=== PATIENT | male | born 1945 | race Caucasian/White ===

== ENCOUNTER 2017-07-29 23:51 | Inpatient (IN) | payer MEDICARE, BC ==
[~2017-07-29] VITALS: Ht 170.2 cm; Wt 88.0 kg
--- NOTE | 2017-07-30 00:07 | NUR ---
PT BIB [employer], PT PER [employer] WAS ON A HOLD AND GOT OUT OF PSYCH FACILITY EARLIER TODAY, [employer] SMART TEAM WROTE ANOTHER HOLD FOR PT. PT AO RR EVEN AND UNLABORED. NO SOB NOTED. NAD NOTED. NO NVD AT THIS TIME. PT PLACED ON MONITOR WAITING FOR MD SCOTT.
--- NOTE | 2017-07-30 00:08 | NUR ---
LAB AT [facility] FOR BLOOD DRAW
[2017-07-30 00:19] LABS: BASOPHILS % (AUTO) 0.5 % (0.0-2.0); EOSINOPHILS % (AUTO) 2.3 % (0.0-6.0); HEMATOCRIT 39 % (39-51); HEMOGLOBIN 13.2 g/dL (13.5-17.5); LYMPHOCYTES # (AUTO) 2.6 /CMM (0.8-4.8); LYMPHOCYTES % (AUTO) 29.5 % (20.0-44.0); MEAN CORPUSCULAR HGB CONC 34 g/dl (31.0-36.0); MEAN CORPUSCULAR VOLUME 87 fL (80-96); MONOCYTES # (AUTO) 0.9 /CMM (0.1-1.30); MONOCYTES % (AUTO) 9.7 % (2.0-12.0); NEUTROPHILS # (AUTO) 5.2 /CMM (1.8-8.9); PLATELET COUNT (AUTO) 261 /CMM (150-450); RDW COEFFICIENT OF VARIATION 14.4 (11.5-15.0); RED BLOOD CELL COUNT(AUTO) 4.52 MIL/uL (4.5-6.0)
--- NOTE | 2017-07-30 00:28 | NUR ---
URINE COLLECTED. CALLED LAB FOR LATHE MECHANIC.
[2017-07-30 00:34] LABS: CALCIUM, SERUM 9.5 mg/dL (8.5-10.1); CARBON DIOXIDE 22 mmol/L (21-32); CHLORIDE 103 mmol/L (98-107); CREATININE 1.4 mg/dL (0.6-1.3); GLUCOSE 253 mg/dL (74-106); POTASSIUM 3.3 mmol/L (3.5-5.1); SODIUM SERUM 139 mmol/L (136-145); UREA NITROGEN, BLOOD 22 mg/dL (7-18)
[2017-07-30 00:35] LABS: ALCOHOL, BLOOD < 3 mg/dL (0-0)
[2017-07-30] MEDS ORDERED: HYDROCODONE/APAP 5/325MG 1 EACH TABLET ONE (00:50)
[2017-07-30] MEDS ORDERED: ONDANSETRON 4 MG TAB.RAPDIS ONE (00:51)
[2017-07-30 00:59] LABS: APPEARANCE,URINE CLEAR (CLEAR); BILIRUBIN,URINE NEGATIVE (NEGATIVE); BLOOD, URINE 1+ Ery/uL (NEGATIVE); COLOR,URINE YELLOW (YELLOW); KETONES,URINE TRACE (NEGATIVE); LEUKOCYTE ESTERASE ,URINE NEGATIVE (NEGATIVE); NITRITE, URINE NEGATIVE (NEGATIVE); PROTEIN,URINE 2+ mg/dl (NEGATIVE); UGLUCOSE 2+ mg/dL (NEGATIVE); UROBILINOGEN,URINE 0.2 EU/dL (0.2)
[2017-07-30] MEDS ORDERED: ONDANSETRON 4 MG TAB.RAPDIS SL ONE (01:00)
[2017-07-30] MEDS ORDERED: HYDROCODONE/APAP 5/325MG 1 EACH TABLET PO ONE (01:00)
--- NOTE | 2017-07-30 01:00 | NUR ---
REPORT GIVEN TO MACEY SULLIVAN FOR REINIER / GUALBERTO 214-B
--- NOTE | 2017-07-30 01:07 | NUR ---
[facility]
[2017-07-30 01:14] LABS: BACTERIA,URINE None seen /HPF (None Seen); SQUAMOUS EPITHELIAL CELL,UR Few /HPF (None Seen); WBC,URINE 0-2 /HPF (0-3)
[2017-07-30 01:15] VITALS: BP 154/96
--- NOTE | 2017-07-30 01:20 | NUR ---
ADMITTED A 72 Y/O MALE FROM [facility] AND EVALUATED FROM [facility]. PATIENT ON 5150 HOLD FOR GD. PER HOLD, PATIENT IS UNABLE TO CARE FOR HIMSELF DUE TO NOT BEING ABLE TO PERFORM BASIC FUNCTIONS- BATHE, PREPARE FOOD & TAKE MEDICATIONS. NON-COMPLIANT W/ MEDS. PATIENT ADMITTING DX. OF DEPRESSION AND MEDICAL DIAGNOSIS OF HTN, DEMENTIA, UTI & CHRONIC BACK PAIN. UPON FACE TO FACE EVALUATION, PATIENT APPEARED ALERT AND ORIENTED X 1, CONFUSED, RESTLESS & ANXIOUS. SKIN BODY ASSESSMENT DONE. PICTURES TAKEN. MRSA DONE. PATIENT UNABLE TO SIGN PAPER WORKS. NO SOB, NO ACUTE DISTRESS, BREATHING EVEN AND UNLABORED, NO S/S OF PAIN AND DISCOMFORT. VSS. PATIENT IS UNDER THE CARE OF DR. PENA FOR PSYCH AND DR. GUERRERO FOR MEDICAL. BOTH DOCTORS ARE AWARE OF THE ADMISSION. BELONGINGS CHECKED FOR CONTRABAND ITEMS. PUT IT IN SAFE LOCK CABINET. KEPT CLEAN, DRY AND COMFORTABLE. ALL NEEDS ATTENDED & ANTICIPATED. WILL CONTINUE TO MONITOR Q15 MINS FOR SAFETY.
[2017-07-30] MEDS ORDERED: MAGNESIUM HYDROXIDE 30 ML UDC PO PRN (01:30)
[2017-07-30] MEDS ORDERED: MAG HYDROX/AL HYDROX/SIMETH 30 ML UDC PO PRN (01:30)
[2017-07-30] MEDS ORDERED: ACETAMINOPHEN 325 MG TABLET PO PRN (01:30)
[2017-07-30] MEDS: TEMAZEPAM 7.5 MG CAPSULE PO PRN ×2 (02:01→23:31)
[2017-07-30 02:32] VITALS: BP 154/96
--- NOTE | 2017-07-30 07:50 | NUR ---
GPS RN NOTES PATIENT RECEIVED RESTING INSIDE ROOM. SLEEPING, EASILY AROUSABLE THROUGH VERBAL AND TACTILE STIMULI. ALERT AND ORIENTED TO SELF WITH PERIODS OF CONFUSION. PATIENT RE-ORIENTED TO STAFF, TIME AND DATE, CURRENT PLACE AND SITUATION. PATIENT AFEBRILE, SKIN DRY AND WARM TO TOUCH. BREATHING EVEN AND UNLABORED. NO SOB OR ACUTE DISTRESS NOTED AT THIS TIME. DENIES ANY PAIN OR DISCOMFORT. WILL CONTINUE TO MONITOR. BILATERAL UPPER SIDE RAILS UP AND LOCKED. BED LOCKED AND IN LOW POSITION. CALL LIGHT WITHIN EASY REACH
[2017-07-30 08:00] VITALS: BP 127/74
[2017-07-30] MEDS ORDERED: POTASSIUM CHLORIDE 20 MEQ TAB.PRT.SR PO ONE (09:30)
[2017-07-30] MEDS ORDERED: POLY17PO4 PO (12:22)
[2017-07-30] MEDS ORDERED: DIVA125C2 PO (12:22)
[2017-07-30] MEDS ORDERED: SENN-167 PO (12:22)
[2017-07-30] MEDS ORDERED: AMLO5TAB7 PO (12:22)
[2017-07-30] MEDS ORDERED: ASCO-340 PO (12:22)
[2017-07-30] MEDS ORDERED: CARV6.252 PO (12:22)
[2017-07-30] MEDS ORDERED: INSU100V3 SQ (12:22)
[2017-07-30] MEDS ORDERED: NA P133E RC (12:22)
[2017-07-30] MEDS ORDERED: ATOR10TA PO (12:22)
[2017-07-30] MEDS ORDERED: TAMS0.4C34 PO (12:22)
[2017-07-30] MEDS ORDERED: BISA10SU8 RC (12:22)
[2017-07-30] MEDS ORDERED: INSU100I30 SQ (12:22)
[2017-07-30] MEDS ORDERED: OLAN7.5T3 PO (12:22)
[2017-07-30] MEDS ORDERED: DOCU100C36 PO (12:22)
[2017-07-30] MEDS ORDERED: CLON0.1T PO (12:22)
[2017-07-30] MEDS ORDERED: MULT-213 PO (12:22)
--- NOTE | 2017-07-30 12:30 | NUR ---
GPS/RN MED LIST RECEIVED FROM [facility] [phone], ENTERED IN [employer]. LIA SANDOVAL MADE AWARE OF MEDS TO BE RECONCILED. PT WAS SEEN BY DR JEAN EARLY.
[2017-07-30] MEDS: HYDROCODONE/APAP 5/325MG 1 EACH TABLET PO PRN (13:46)
[2017-07-30] MEDS: DIVALPROEX SODIUM 250 MG TABLET.DR PO SCH ×2 (14:38→16:25)
--- NOTE | 2017-07-30 15:11 | NUR ---
GPS RN NOTES PLACED CALL TO [employer] TO FOLLOW-UP WITH TIMO FITZGERALD NP REGARDING MEDICATION RECONCILATION AND PATIENT GLUCOSE PER BMP AND HGA1C. SPOKE WITH LUKE, VEHICLE DETAILER # [phone] AND SAID LIA WILL BE PAGED. WILL CONTINUE TO MONITOR
--- NOTE | 2017-07-30 16:30 | NUR ---
GPS/RN GPS/RN TIMO FITZGERALD ROASTER OPERATOR SEEN THE PATIENT
[2017-07-30 16:37] VITALS: BP 143/80
--- NOTE | 2017-07-30 18:40 | NUR ---
GPS RN NOTES PATIENT RESTING INSIDE ROOM, SLEEPING INTERMITENTLY. ALERT AND ORIENTED WITH PERIODS OF FORGETFULNESS. ABLE TO MAKE NEEDS KNOWN AND FOLLOW SIMPLE INSTRUCTIONS. PATIENT BREATHING EVEN AND UNLABORED. NO SOB OR ACUTE DISTRESS NOTED. PATIENT AFEBRILE, SKIN DRY AND WARM TO TOUCH. NO EPISODE OF AGITATION OR AGGRESSIVE BEHAVIOR NOTED. NO CHANGES IN LOC NOTED. WILL ENDORSE TO INCOMING SHIFT FOR REINIER. ALL DUE MEDICATIONS GIVEN AND TOLERATED WELL. PROVIDED WITH CALM, SAFE, HAZARD-FREE ENVIRONMENT. BED LOCKED AND IN LOW POSITION. BILATERAL UPPER SIDE RAILS UP AND LOCKED. CALL LIGHT WITHIN EASY REACH
[2017-07-30] MEDS ORDERED: NA PHOS,M-B/NA PHOS,DI-BA 1 EA ENEMA RC PRN (19:00)
[2017-07-30] MEDS ORDERED: CLONIDINE HCL 0.1 MG TABLET PO PRN (19:00)
[2017-07-30] MEDS ORDERED: BISACODYL SUPP (10 MG) 10 MG/SUPP.RECT SUPP.RECT RC PRN (19:00)
[2017-07-30] MEDS ORDERED: POLYETHYLENE GLYCOL 3350 17 GM POWD.PACK PO PRN (19:00)
[2017-07-30] MEDS ORDERED: DEXTROSE 50%-WATER 50 ML DISP.SYRIN IV PRN (19:00)
[2017-07-30] MEDS: LIDOCAINE 5% (PATCH) 1 EA PATCH TP SCH (19:00)
[2017-07-30 20:19] VITALS: BP 145/84
[2017-07-30] MEDS: SENNOSIDES 8.6 MG TABLET PO SCH (21:28)
[2017-07-30] MEDS: DOCUSATE SODIUM 100 MG CAPSULE PO SCH (21:29)
[2017-07-30] MEDS: TAMSULOSIN 0.4 MG CAP.SR.24H PO SCH (21:29)
[2017-07-30] MEDS: AMLODIPINE BESYLATE 5 MG TABLET PO SCH (21:30)
[2017-07-30] MEDS: ATORVASTATIN 10 MG TABLET PO SCH (21:31)
[2017-07-30] MEDS: BLOOD SUGAR DIAGNOSTIC 1 EACH STRIP IN SCH (21:59)
[2017-07-30] MEDS: INSULIN GLARGINE, 100 UNIT/ML CARTRIDGE SQ SCH (22:00)
[2017-07-30] MEDS ORDERED: BENZTROPINE MESYLATE (1 MG) 1 MG TABLET PO SCH (22:00)
[2017-07-30] MEDS ORDERED: risperiDONE 0.25 MG TABLET PO SCH (22:00)
[2017-07-30] MEDS: INSULIN REGULAR, HUMAN 100 UNIT/ML 3 ML VIAL SQ PRN (22:02)
--- NOTE | 2017-07-30 23:32 | NUR ---
RN GPS NOTES PT. C/O INSOMNIA RESTORIL 7.5 MG PO PRN GIVEN PER PT. REQUEST, WILL CONTINUE TO MONITOR
[2017-07-31 07:29] LABS: BASOPHILS # (AUTO) 0.1 /CMM (0.0-0.2); BASOPHILS % (AUTO) 0.7 % (0.0-2.0); EOSINOPHILS % (AUTO) 5.4 % (0.0-6.0); HEMATOCRIT 35 % (39-51); HEMOGLOBIN 11.8 g/dL (13.5-17.5); LYMPHOCYTES % (AUTO) 42.2 % (20.0-44.0); MEAN CORPUSCULAR HGB CONC 34 g/dl (31.0-36.0); MEAN CORPUSCULAR VOLUME 87 fL (80-96); MONOCYTES # (AUTO) 0.6 /CMM (0.1-1.30); MONOCYTES % (AUTO) 8.6 % (2.0-12.0); NEUTROPHILS # (AUTO) 3.1 /CMM (1.8-8.9); NEUTROPHILS % (AUTO) 43.1 % (43.0-81.0); PLATELET COUNT (AUTO) 214 /CMM (150-450); RDW COEFFICIENT OF VARIATION 14.7 (11.5-15.0); RED BLOOD CELL COUNT(AUTO) 3.96 MIL/uL (4.5-6.0); WHITE BLOOD COUNT (AUTO) 7.2 K/uL (4.3-11.0)
[2017-07-31 07:43] LABS: ALANINE AMINOTRANSFERASE 20 U/L (12-78); ALBUMIN 2.9 g/dL (3.4-5.0); ALKALINE PHOSPHATASE 71 U/L (46-116); ASPARTATE AMINOTRANSFERASE 10 U/L (15-37); BILIRUBIN,TOTAL 0.3 mg/dL (0.2-1.0); CALCIUM, SERUM 8.8 mg/dL (8.5-10.1); CARBON DIOXIDE 30 mmol/L (21-32); CHLORIDE 103 mmol/L (98-107); CREATININE 1.4 mg/dL (0.6-1.3); GLUCOSE 149 mg/dL (74-106); POTASSIUM 3.4 mmol/L (3.5-5.1); SODIUM SERUM 143 mmol/L (136-145); TOTAL PROTEIN, SERUM 6.7 g/dL (6.4-8.2); UREA NITROGEN, BLOOD 23 mg/dL (7-18)
[2017-07-31 07:44] LABS: CHOLESTEROL 136 mg/dL (<200); HDL CHOLESTEROL 41 mg/dL (40-60); LDL 83 mg/dL (0-99); TRIGLYCERIDES 100 mg/dL (30-150)
[2017-07-31 08:00] VITALS: BP 138/83
[2017-07-31] MEDS: MULTIVIT, IRON, MIN NO. 8, FA 1 TAB PO SCH (08:32)
[2017-07-31] MEDS: BLOOD SUGAR DIAGNOSTIC 1 EACH STRIP IN SCH ×4 (08:32→21:45)
[2017-07-31] MEDS: AMLODIPINE BESYLATE 5 MG TABLET PO SCH ×2 (08:33→21:43)
[2017-07-31] MEDS: DOCUSATE SODIUM 100 MG CAPSULE PO SCH ×2 (08:33→21:44)
[2017-07-31] MEDS: ASCORBIC ACID 500 MG TABLET PO SCH (08:33)
[2017-07-31] MEDS: DIVALPROEX SODIUM 250 MG TABLET.DR PO SCH ×3 (08:33→17:41)
[2017-07-31] MEDS: INSULIN REGULAR, HUMAN 100 UNIT/ML 3 ML VIAL SQ PRN ×2 (09:20→13:24)
[2017-07-31] MEDS: CARVEDILOL 6.25 MG TABLET PO SCH ×2 (09:26→18:52)
[2017-07-31] MEDS ORDERED: POTASSIUM CHLORIDE 20 MEQ TAB.PRT.SR PO SCH (09:30)
[2017-07-31] MEDS: BENZTROPINE MESYLATE (1 MG) 1 MG TABLET PO SCH ×2 (13:00→21:43)
[2017-07-31] MEDS: risperiDONE 0.25 MG TABLET PO SCH ×2 (13:00→21:42)
[2017-07-31] MEDS ORDERED: POTASSIUM CHLORIDE 20 MEQ TAB.PRT.SR PO ONE (15:00)
[2017-07-31 16:00] VITALS: BP 158/73
--- NOTE | 2017-07-31 17:30 | NUR ---
GPS/RN BS 192, PATIENT REFUSED 3 UNITS REGULAR INSULIN X 3, EXPLAINED RISKS AND BENEFITS.
[2017-07-31] MEDS: LIDOCAINE 5% (PATCH) 1 EA PATCH TP SCH (19:30)
[2017-07-31 19:56] VITALS: BP 155/98
[2017-07-31] MEDS: LORAZEPAM 0.5 MG TABLET PO PRN (20:32)
[2017-07-31] MEDS: TAMSULOSIN 0.4 MG CAP.SR.24H PO SCH (21:43)
[2017-07-31] MEDS: ATORVASTATIN 10 MG TABLET PO SCH (21:45)
[2017-07-31] MEDS: TEMAZEPAM 7.5 MG CAPSULE PO PRN (21:45)
[2017-07-31] MEDS: SENNOSIDES 8.6 MG TABLET PO SCH (21:45)
[2017-07-31] MEDS: INSULIN GLARGINE, 100 UNIT/ML CARTRIDGE SQ SCH (22:58)
[2017-08-01 07:28] LABS: CALCIUM, SERUM 9.4 mg/dL (8.5-10.1); CARBON DIOXIDE 32 mmol/L (21-32); CHLORIDE 102 mmol/L (98-107); CREATININE 1.3 mg/dL (0.6-1.3); GLUCOSE 152 mg/dL (74-106); POTASSIUM 3.7 mmol/L (3.5-5.1); SODIUM SERUM 142 mmol/L (136-145); UREA NITROGEN, BLOOD 28 mg/dL (7-18)
[2017-08-01 08:00] VITALS: BP 147/78
--- NOTE | 2017-08-01 08:00 | NUR ---
GPS/RN BS 158 ADMINISTERED 2 UNITS REGULAR INSULIN, WILL CONTINUE TO MONITOR.
[2017-08-01] MEDS: DOCUSATE SODIUM 100 MG CAPSULE PO SCH ×2 (08:45→21:25)
[2017-08-01] MEDS: DIVALPROEX SODIUM 250 MG TABLET.DR PO SCH ×3 (08:45→16:30)
[2017-08-01] MEDS: MULTIVIT, IRON, MIN NO. 8, FA 1 TAB PO SCH (08:45)
[2017-08-01] MEDS: ASCORBIC ACID 500 MG TABLET PO SCH (08:45)
[2017-08-01] MEDS: risperiDONE 0.25 MG TABLET PO SCH ×2 (08:45→21:26)
[2017-08-01] MEDS: BENZTROPINE MESYLATE (1 MG) 1 MG TABLET PO SCH ×2 (08:46→21:25)
[2017-08-01] MEDS: AMLODIPINE BESYLATE 5 MG TABLET PO SCH ×2 (08:46→21:26)
[2017-08-01] MEDS: CARVEDILOL 6.25 MG TABLET PO SCH ×2 (08:46→16:30)
[2017-08-01] MEDS: INSULIN REGULAR, HUMAN 100 UNIT/ML 3 ML VIAL SQ PRN ×4 (09:20→21:29)
[2017-08-01] MEDS: BLOOD SUGAR DIAGNOSTIC 1 EACH STRIP IN SCH ×4 (09:21→21:27)
[2017-08-01] MEDS: LORAZEPAM 0.5 MG TABLET PO PRN ×2 (11:15→17:05)
--- NOTE | 2017-08-01 11:17 | NUR ---
GPS/RN PATIENT IS ANXIOUS AND RESTLESS, CRYING INTERMITTENTLY, ADMINISTERED ATIVAN 0.5 MG, WILL CONTINUE TO MONITOR.
--- NOTE | 2017-08-01 12:00 | NUR ---
GPS/RN BS 257 ADMINISTERED 6 UNITS REGULAR INSULIN, WILL CONTINUE TO MONITOR.
[2017-08-01] MEDS: HYDROCODONE/APAP 5/325MG 1 EACH TABLET PO PRN (15:14)
--- NOTE | 2017-08-01 15:15 | NUR ---
GPS/RN PATIENT REPORTS 8/10 BACK PAIN, PER PATIENT REQUEST, ADMINISTERED NORCO 5/325 1 TAB, WILL CONTINUE TO MONITOR.
--- NOTE | 2017-08-01 15:43 | NUR ---
Initial Discharge Plan: Pts address on face sheet is [address] [place] [address] and telephone # is . SW contacted pts daughter, Bernie Nolan for collateral information , however was unable to speak with her. SW left a message asking for a call back. SW will follow up to ensure pt is safely and adequately discharged.
--- NOTE | 2017-08-01 15:44 | NUR ---
Discharge Planning: Tangela received a call back from Bernie Nolan for discharge planning purposes. SW gathered additional information regarding pts current living situation. Per Bernie, pt has been and out of SNF in the last yr. "because he doesn't like being there, he declines." Per Bernie, pt was living in a Board & Care prior to transferring to the rehab facility where he eloped from. This is where pt has his belongings, including his dog. TANGELA was asked to contact Myrtle who manages the home to inquire if pt still has his room available. Per Bernie, Myrtle is caring for pts dog. Bernie also provided the following Board & Care information as an alternative. Per Bernie, pts brother, Davy can be contacted if she is not available. TANGELA will follow up to ensure pt is safely and adequately discharged.
[2017-08-01 16:00] VITALS: BP 144/82
--- NOTE | 2017-08-01 17:05 | NUR ---
GPS/RN PATIENT IS ANXIOUS AND RESTLESS, CRYING INTERMITTENTLY, ADMINISTERED ATIVAN 0.5 MG, WILL CONTINUE TO MONITOR.
[2017-08-01] MEDS: LIDOCAINE 5% (PATCH) 1 EA PATCH TP SCH ×2 (17:58→17:59)
--- NOTE | 2017-08-01 18:00 | NUR ---
GPS/RN BS 138, ADMINISTERED 2 UNITS REGULAR INSULIN, WILL CONTINUE TO MONITOR.
[2017-08-01 20:17] VITALS: BP 144/65
[2017-08-01] MEDS: ATORVASTATIN 10 MG TABLET PO SCH (21:26)
[2017-08-01] MEDS: TAMSULOSIN 0.4 MG CAP.SR.24H PO SCH (21:26)
[2017-08-01] MEDS: SENNOSIDES 8.6 MG TABLET PO SCH (21:27)
[2017-08-01] MEDS: INSULIN GLARGINE, 100 UNIT/ML CARTRIDGE SQ SCH (21:30)
[2017-08-02] MEDS: TEMAZEPAM 7.5 MG CAPSULE PO PRN ×2 (01:16→22:07)
[2017-08-02 07:29] LABS: ALANINE AMINOTRANSFERASE 18 U/L (12-78); ALBUMIN 2.9 g/dL (3.4-5.0); ALKALINE PHOSPHATASE 69 U/L (46-116); ASPARTATE AMINOTRANSFERASE 9 U/L (15-37); BILIRUBIN,TOTAL 0.3 mg/dL (0.2-1.0); CARBON DIOXIDE 28 mmol/L (21-32); CHLORIDE 103 mmol/L (98-107); CREATININE 1.3 mg/dL (0.6-1.3); GLUCOSE 128 mg/dL (74-106); POTASSIUM 3.3 mmol/L (3.5-5.1); SODIUM SERUM 140 mmol/L (136-145); TOTAL PROTEIN, SERUM 6.6 g/dL (6.4-8.2); UREA NITROGEN, BLOOD 27 mg/dL (7-18)
[2017-08-02 07:30] LABS: BASOPHILS # (AUTO) 0.1 /CMM (0.0-0.2); BASOPHILS % (AUTO) 0.8 % (0.0-2.0); HEMATOCRIT 35 % (39-51); HEMOGLOBIN 12.1 g/dL (13.5-17.5); LYMPHOCYTES # (AUTO) 2.8 /CMM (0.8-4.8); LYMPHOCYTES % (AUTO) 36.1 % (20.0-44.0); MEAN CORPUSCULAR HGB CONC 35 g/dl (31.0-36.0); MEAN CORPUSCULAR VOLUME 86 fL (80-96); MONOCYTES # (AUTO) 0.7 /CMM (0.1-1.30); NEUTROPHILS # (AUTO) 3.5 /CMM (1.8-8.9); NEUTROPHILS % (AUTO) 48.1 % (43.0-81.0); PLATELET COUNT (AUTO) 219 /CMM (150-450); RDW COEFFICIENT OF VARIATION 13.6 (11.5-15.0); RED BLOOD CELL COUNT(AUTO) 4.06 MIL/uL (4.5-6.0); VALPROIC ACID 28 ug/mL (50-100); WHITE BLOOD COUNT (AUTO) 7.6 K/uL (4.3-11.0)
[2017-08-02] MEDS: BLOOD SUGAR DIAGNOSTIC 1 EACH STRIP IN SCH ×4 (07:48→21:42)
[2017-08-02 08:00] VITALS: BP 143/68
[2017-08-02] MEDS: risperiDONE 0.25 MG TABLET PO SCH ×3 (09:03→23:18)
[2017-08-02] MEDS: DOCUSATE SODIUM 100 MG CAPSULE PO SCH ×2 (09:03→21:08)
[2017-08-02] MEDS: ASCORBIC ACID 500 MG TABLET PO SCH (09:03)
[2017-08-02] MEDS: MULTIVIT, IRON, MIN NO. 8, FA 1 TAB PO SCH (09:03)
[2017-08-02] MEDS: DIVALPROEX SODIUM 250 MG TABLET.DR PO SCH ×4 (09:03→21:08)
[2017-08-02] MEDS: CARVEDILOL 6.25 MG TABLET PO SCH ×2 (09:05→16:50)
[2017-08-02] MEDS: AMLODIPINE BESYLATE 5 MG TABLET PO SCH ×2 (09:05→21:09)
[2017-08-02] MEDS: INSULIN REGULAR, HUMAN 100 UNIT/ML 3 ML VIAL SQ PRN ×4 (09:10→21:43)
--- NOTE | 2017-08-02 09:10 | NUR ---
GPS/RN-NOTES PATIENT BLOOD SUGAR WAS 140MG/DL 2 UNITS OF INSULIN GIVEN ORDERED.
[2017-08-02] MEDS: BENZTROPINE MESYLATE (1 MG) 1 MG TABLET PO SCH ×2 (09:51→21:07)
[2017-08-02] MEDS: HYDROCODONE/APAP 5/325MG 1 EACH TABLET PO PRN ×2 (09:54→16:53)
--- NOTE | 2017-08-02 09:54 | NUR ---
GPS/RN-NOTES PATIENT C/O 9/10 LOWER BACK PAIN. NORCO 5/325MG P.O GIVEN PRN ORDER. WILL CONT. MONITORING
[2017-08-02] MEDS ORDERED: POTASSIUM CHLORIDE 20 MEQ TAB.PRT.SR PO ONE (12:30)
--- NOTE | 2017-08-02 12:30 | NUR ---
GPS/RN-NOTES PATIENT BLOOD SUGAR WAS 192MG/DL 3 UNITS OF INSULIN GIVEN ORDERED.
--- NOTE | 2017-08-02 12:31 | NUR ---
TANGELA faxed referral to Malia from [facility] [phone].
--- NOTE | 2017-08-02 15:54 | NUR ---
Pts daughter Bernie contacted SW to question patients placement at [facility]. SW explained to daughter that psychiatrist recommends pt be placed a locked facility. Daughter was okay with knowing a locked facility is best for patient.
[2017-08-02 16:06] VITALS: BP 150/87
--- NOTE | 2017-08-02 18:20 | NUR ---
GPS/RN-NOTES PATIENT BLOOD SUGAR WAS 206 MG/DL 4 UNITS OF INSULIN GIVEN ORDERED.
[2017-08-02] MEDS: LIDOCAINE 5% (PATCH) 1 EA PATCH TP SCH (19:00)
[2017-08-02 20:00] VITALS: BP 147/70
[2017-08-02] MEDS ORDERED: risperiDONE 1 MG TABLET PO SCH (20:00)
[2017-08-02] MEDS ORDERED: risperiDONE 0.25 MG TABLET PO SCH (20:00)
[2017-08-02] MEDS: SENNOSIDES 8.6 MG TABLET PO SCH (21:08)
[2017-08-02] MEDS: ATORVASTATIN 10 MG TABLET PO SCH (21:08)
[2017-08-02] MEDS: TAMSULOSIN 0.4 MG CAP.SR.24H PO SCH (21:08)
[2017-08-02] MEDS: INSULIN GLARGINE, 100 UNIT/ML CARTRIDGE SQ SCH (21:44)
[2017-08-03] MEDS: BLOOD SUGAR DIAGNOSTIC 1 EACH STRIP IN SCH ×4 (07:43→21:56)
[2017-08-03 08:19] VITALS: BP 139/64
[2017-08-03] MEDS: DOCUSATE SODIUM 100 MG CAPSULE PO SCH ×2 (08:47→21:55)
[2017-08-03] MEDS: risperiDONE 0.25 MG TABLET PO SCH ×3 (08:47→21:53)
[2017-08-03] MEDS: ASCORBIC ACID 500 MG TABLET PO SCH (08:48)
[2017-08-03] MEDS: DIVALPROEX SODIUM 250 MG TABLET.DR PO SCH ×4 (08:48→21:53)
[2017-08-03] MEDS: MULTIVIT, IRON, MIN NO. 8, FA 1 TAB PO SCH (08:48)
[2017-08-03] MEDS: BENZTROPINE MESYLATE (1 MG) 1 MG TABLET PO SCH ×2 (08:48→21:53)
[2017-08-03] MEDS: CARVEDILOL 6.25 MG TABLET PO SCH ×2 (08:48→17:12)
[2017-08-03] MEDS: AMLODIPINE BESYLATE 5 MG TABLET PO SCH ×2 (08:49→21:55)
[2017-08-03] MEDS: INSULIN REGULAR, HUMAN 100 UNIT/ML 3 ML VIAL SQ PRN ×4 (10:07→21:58)
--- NOTE | 2017-08-03 10:10 | NUR ---
GPS/RN-NOTES PATIENT BLOOD SUGAR WAS 139MG/DL, 2 UNITS OF R INSULIN GIVEN ORDERED.
--- NOTE | 2017-08-03 10:41 | NUR ---
GPS/RN-NOTES SEEN BY DR. FERGUSON WITH VERBAL ORDER OF NORCO 5/325MG 1 TAB. P.O Q4HR PRN FOR MODERATE PAIN. NOTED AND CARRIED OUT.
--- NOTE | 2017-08-03 12:21 | NUR ---
GPS/RN-NOTES PATIENT BLOOD SUGAR WAS 343MG/DL, 8 UNITS OF R INSULIN GIVEN ORDERED.
[2017-08-03 16:45] VITALS: BP 140/80
[2017-08-03] MEDS: HYDROCODONE/APAP 5/325MG 1 EACH TABLET PO PRN ×2 (17:35→22:28)
--- NOTE | 2017-08-03 17:40 | NUR ---
GPS/RN-NOTES PATIENT BLOOD SUGAR WAS 228MG/DL, 4 UNITS OF R INSULIN GIVEN ORDERED.
--- NOTE | 2017-08-03 17:41 | NUR ---
GPS/RN-NOTES PATIENT C/O 9/10 LOWER BACK PAIN. NORCO 5/325MG P.O GIVEN PRN ORDER. WILL CONT. MONITORING
[2017-08-03] MEDS: LIDOCAINE 5% (PATCH) 1 EA PATCH TP SCH (19:06)
[2017-08-03 20:00] VITALS: BP 153/82
[2017-08-03] MEDS: SENNOSIDES 8.6 MG TABLET PO SCH (21:53)
[2017-08-03] MEDS: TAMSULOSIN 0.4 MG CAP.SR.24H PO SCH (21:53)
[2017-08-03] MEDS: ATORVASTATIN 10 MG TABLET PO SCH (21:53)
[2017-08-03] MEDS: TEMAZEPAM 7.5 MG CAPSULE PO PRN (21:55)
[2017-08-03] MEDS: INSULIN GLARGINE, 100 UNIT/ML CARTRIDGE SQ SCH (21:56)
[2017-08-04 08:00] VITALS: BP 167/87
[2017-08-04] MEDS: DOCUSATE SODIUM 100 MG CAPSULE PO SCH ×2 (08:40→22:18)
[2017-08-04] MEDS: DIVALPROEX SODIUM 250 MG TABLET.DR PO SCH ×4 (08:40→22:17)
[2017-08-04] MEDS: ASCORBIC ACID 500 MG TABLET PO SCH (08:40)
[2017-08-04] MEDS: BENZTROPINE MESYLATE (1 MG) 1 MG TABLET PO SCH ×2 (08:40→22:17)
[2017-08-04] MEDS: risperiDONE 0.25 MG TABLET PO SCH ×3 (08:40→22:17)
[2017-08-04] MEDS: MULTIVIT, IRON, MIN NO. 8, FA 1 TAB PO SCH (08:40)
[2017-08-04] MEDS: AMLODIPINE BESYLATE 5 MG TABLET PO SCH ×2 (08:42→22:18)
[2017-08-04] MEDS: CARVEDILOL 6.25 MG TABLET PO SCH ×2 (08:42→16:53)
[2017-08-04] MEDS: BLOOD SUGAR DIAGNOSTIC 1 EACH STRIP IN SCH ×4 (08:43→22:18)
[2017-08-04] MEDS: INSULIN REGULAR, HUMAN 100 UNIT/ML 3 ML VIAL SQ PRN ×4 (08:54→22:23)
[2017-08-04 16:00] VITALS: BP 155/79
[2017-08-04] MEDS: LIDOCAINE 5% (PATCH) 1 EA PATCH TP SCH (18:13)
[2017-08-04 20:00] VITALS: BP 133/75
[2017-08-04] MEDS: TAMSULOSIN 0.4 MG CAP.SR.24H PO SCH (22:16)
[2017-08-04] MEDS: SENNOSIDES 8.6 MG TABLET PO SCH (22:16)
[2017-08-04] MEDS: INSULIN GLARGINE, 100 UNIT/ML CARTRIDGE SQ SCH (22:18)
[2017-08-04] MEDS: ATORVASTATIN 10 MG TABLET PO SCH (22:18)
[2017-08-04] MEDS: TEMAZEPAM 7.5 MG CAPSULE PO PRN (22:24)
[2017-08-05] MEDS: HYDROCODONE/APAP 5/325MG 1 EACH TABLET PO PRN ×3 (04:11→19:35)
[2017-08-05 08:00] VITALS: BP 118/66
[2017-08-05] MEDS: BLOOD SUGAR DIAGNOSTIC 1 EACH STRIP IN SCH ×4 (08:11→21:25)
[2017-08-05] MEDS: ASCORBIC ACID 500 MG TABLET PO SCH (08:12)
[2017-08-05] MEDS: DIVALPROEX SODIUM 250 MG TABLET.DR PO SCH ×4 (08:12→21:16)
[2017-08-05] MEDS: CARVEDILOL 6.25 MG TABLET PO SCH ×2 (08:12→17:04)
[2017-08-05] MEDS: MULTIVIT, IRON, MIN NO. 8, FA 1 TAB PO SCH (08:12)
[2017-08-05] MEDS: BENZTROPINE MESYLATE (1 MG) 1 MG TABLET PO SCH ×2 (08:12→21:16)
[2017-08-05] MEDS: risperiDONE 0.25 MG TABLET PO SCH ×3 (08:12→21:17)
[2017-08-05] MEDS: AMLODIPINE BESYLATE 5 MG TABLET PO SCH ×2 (08:12→21:17)
[2017-08-05] MEDS: DOCUSATE SODIUM 100 MG CAPSULE PO SCH ×2 (08:16→21:16)
[2017-08-05] MEDS: INSULIN REGULAR, HUMAN 100 UNIT/ML 3 ML VIAL SQ PRN ×3 (12:07→22:12)
[2017-08-05 16:00] VITALS: BP 157/77
[2017-08-05] MEDS: LIDOCAINE 5% (PATCH) 1 EA PATCH TP SCH (18:17)
[2017-08-05] MEDS: LORAZEPAM 0.5 MG TABLET PO PRN (18:40)
[2017-08-05 20:00] VITALS: BP 156/93
[2017-08-05] MEDS: TAMSULOSIN 0.4 MG CAP.SR.24H PO SCH (21:17)
[2017-08-05] MEDS: SENNOSIDES 8.6 MG TABLET PO SCH (21:17)
[2017-08-05] MEDS: ATORVASTATIN 10 MG TABLET PO SCH (21:20)
[2017-08-05] MEDS: INSULIN GLARGINE, 100 UNIT/ML CARTRIDGE SQ SCH (21:29)
[2017-08-05] MEDS: TEMAZEPAM 7.5 MG CAPSULE PO PRN (21:50)
[2017-08-06 08:05] VITALS: BP 130/69
[2017-08-06] MEDS: BLOOD SUGAR DIAGNOSTIC 1 EACH STRIP IN SCH ×4 (08:28→21:15)
[2017-08-06] MEDS: BENZTROPINE MESYLATE (1 MG) 1 MG TABLET PO SCH ×2 (08:28→21:14)
[2017-08-06] MEDS: ASCORBIC ACID 500 MG TABLET PO SCH (08:29)
[2017-08-06] MEDS: DOCUSATE SODIUM 100 MG CAPSULE PO SCH ×2 (08:29→21:15)
[2017-08-06] MEDS: risperiDONE 0.25 MG TABLET PO SCH ×3 (08:29→21:17)
[2017-08-06] MEDS: MULTIVIT, IRON, MIN NO. 8, FA 1 TAB PO SCH (08:29)
[2017-08-06] MEDS: DIVALPROEX SODIUM 250 MG TABLET.DR PO SCH ×4 (08:30→21:16)
[2017-08-06] MEDS: CARVEDILOL 6.25 MG TABLET PO SCH ×2 (08:30→16:57)
[2017-08-06] MEDS: AMLODIPINE BESYLATE 5 MG TABLET PO SCH ×2 (08:30→21:15)
[2017-08-06] MEDS: INSULIN REGULAR, HUMAN 100 UNIT/ML 3 ML VIAL SQ PRN ×3 (12:28→21:19)
[2017-08-06] MEDS: HYDROCODONE/APAP 5/325MG 1 EACH TABLET PO PRN (14:10)
--- NOTE | 2017-08-06 14:14 | NUR ---
GPS/RN-NOTES PATIENT C/O 8 LOWER BACK PAIN. NORCO 5/325MG P.O GIVEN PRN ORDER. WILL CONT. MONITORING
[2017-08-06 16:00] VITALS: BP 148/91
[2017-08-06] MEDS: LIDOCAINE 5% (PATCH) 1 EA PATCH TP SCH (18:52)
[2017-08-06 19:40] VITALS: BP 139/66
[2017-08-06] MEDS: TAMSULOSIN 0.4 MG CAP.SR.24H PO SCH (21:16)
[2017-08-06] MEDS: ATORVASTATIN 10 MG TABLET PO SCH (21:16)
[2017-08-06] MEDS: INSULIN GLARGINE, 100 UNIT/ML CARTRIDGE SQ SCH (21:21)
[2017-08-06] MEDS: SENNOSIDES 8.6 MG TABLET PO SCH (22:00)
[2017-08-06] MEDS: TEMAZEPAM 7.5 MG CAPSULE PO PRN (23:17)
[2017-08-07 08:00] VITALS: BP 146/75
[2017-08-07] MEDS: risperiDONE 0.25 MG TABLET PO SCH ×3 (08:13→21:16)
[2017-08-07] MEDS: DOCUSATE SODIUM 100 MG CAPSULE PO SCH ×2 (08:13→21:15)
[2017-08-07] MEDS: ASCORBIC ACID 500 MG TABLET PO SCH (08:13)
[2017-08-07] MEDS: MULTIVIT, IRON, MIN NO. 8, FA 1 TAB PO SCH (08:13)
[2017-08-07] MEDS: CARVEDILOL 6.25 MG TABLET PO SCH ×2 (08:14→15:57)
[2017-08-07] MEDS: DIVALPROEX SODIUM 250 MG TABLET.DR PO SCH ×4 (08:14→21:15)
[2017-08-07] MEDS: BENZTROPINE MESYLATE (1 MG) 1 MG TABLET PO SCH ×2 (08:14→21:14)
[2017-08-07] MEDS: AMLODIPINE BESYLATE 5 MG TABLET PO SCH ×2 (08:15→21:15)
[2017-08-07] MEDS: BLOOD SUGAR DIAGNOSTIC 1 EACH STRIP IN SCH ×4 (08:57→21:15)
[2017-08-07 15:51] VITALS: BP 140/75
--- NOTE | 2017-08-07 15:58 | NUR ---
SW contacted patients daughter Bernie Nolan to inform her of patients discharge tomorrow to [facility] [address] [facility] [address].
[2017-08-07] MEDS: ESCITALOPRAM OXALATE (10 MG) 10 MG TABLET PO SCH (16:24)
[2017-08-07] MEDS: INSULIN REGULAR, HUMAN 100 UNIT/ML 3 ML VIAL SQ PRN ×2 (17:56→21:22)
--- NOTE | 2017-08-07 17:57 | NUR ---
GPS/RN BS 164 ADMINISTERED 3 UNITS REGULAR INSULIN. WILL CONTINUE TO MONITOR.
[2017-08-07] MEDS: LIDOCAINE 5% (PATCH) 1 EA PATCH TP SCH (18:47)
[2017-08-07 19:37] VITALS: BP 138/65
[2017-08-07] MEDS: TAMSULOSIN 0.4 MG CAP.SR.24H PO SCH (21:15)
[2017-08-07] MEDS: ATORVASTATIN 10 MG TABLET PO SCH (21:16)
[2017-08-07] MEDS: INSULIN GLARGINE, 100 UNIT/ML CARTRIDGE SQ SCH (21:22)
[2017-08-07] MEDS: SENNOSIDES 8.6 MG TABLET PO SCH (22:00)
[2017-08-07] MEDS: LORAZEPAM 0.5 MG TABLET PO PRN (22:33)
[2017-08-07 22:36] VITALS: BP 149/87
[2017-08-08 08:00] VITALS: BP 133/62
[2017-08-08] MEDS: risperiDONE 0.25 MG TABLET PO SCH ×2 (08:02→17:08)
[2017-08-08] MEDS: BENZTROPINE MESYLATE (1 MG) 1 MG TABLET PO SCH (08:03)
[2017-08-08] MEDS: MULTIVIT, IRON, MIN NO. 8, FA 1 TAB PO SCH (08:03)
[2017-08-08] MEDS: ASCORBIC ACID 500 MG TABLET PO SCH (08:03)
[2017-08-08] MEDS: ESCITALOPRAM OXALATE (10 MG) 10 MG TABLET PO SCH (08:04)
[2017-08-08] MEDS: CARVEDILOL 6.25 MG TABLET PO SCH ×2 (08:04→17:09)
[2017-08-08] MEDS: DOCUSATE SODIUM 100 MG CAPSULE PO SCH (08:04)
[2017-08-08] MEDS: AMLODIPINE BESYLATE 5 MG TABLET PO SCH ×2 (08:04→19:38)
[2017-08-08] MEDS: BLOOD SUGAR DIAGNOSTIC 1 EACH STRIP IN SCH ×3 (08:05→17:11)
[2017-08-08] MEDS: DIVALPROEX SODIUM 250 MG TABLET.DR PO SCH ×3 (08:06→17:08)
--- NOTE | 2017-08-08 10:50 | NUR ---
Discharge Note: Patient will be NOT be discharged to [facility] via med response ambulance at 12:30pm Address: [address], [place] [address] . Irma sales operations coordinator from facility contacted to inform her that they could not accept pt due to no availability. Irma informed that she would assist with referring pt to a [facility] facility. Daughter Bernie [phone] was notified.
[2017-08-08] MEDS: LORAZEPAM 0.5 MG TABLET PO PRN (10:57)
--- NOTE | 2017-08-08 10:57 | NUR ---
GPS/RN PATIENT ANXIOUS, RESTLESS, ADMINISTERED ATIVAN 0.5 MG, WILL CONTINUE TO MONITOR.
--- NOTE | 2017-08-08 11:28 | NUR ---
TANGELA contacted Pts daughter Bernie [phone] to inform her of pts discharge changes. TANGELA left voicemail for call back.
--- NOTE | 2017-08-08 12:00 | NUR ---
GPS/RN PATIENT REFUSED 1200 BS CHECK X 3, EXPLAINED RISKS AND BENEFITS, WILL CONTINUE TO ENCOURAGE TO COMPLY WITH MD REGIMEN.
[2017-08-08] MEDS: HYDROCODONE/APAP 5/325MG 1 EACH TABLET PO PRN (13:38)
--- NOTE | 2017-08-08 13:38 | NUR ---
GPS/RN PATIENT REPORTS 8/10 PAIN IN BACK, ADMINISTERED 1 TAB , WILL CONTINUE TO MONITOR.
--- NOTE | 2017-08-08 14:00 | NUR ---
GPS/RN PATIENT REFUSED D/C PHOTOS X 3, EXPLAINED RISKS AND BENEFITS.
--- NOTE | 2017-08-08 14:44 | NUR ---
Discharge Note: Patient will be discharged to [facility] [address] [address] via ambulance trip # [id number] at 6:00pm . Umm business support coordinator from [facility] assigned patient to bed 16B. Daughter Bernie [phone] was notified. Pts appeared in a stable mood and denied suicidal/homicidal ideations. TANGELA informed pts daughter that medical doctor while at facility would be Dr. Oconnor, however SW advised pts daughter to schedule a follow up appointment with pts tiller man when she felt pt would be ready to return to Independent living facility. TANGELA facilitated info to IDT team who are in agreement with discharge arrangement. The multidisciplinary exitcare form was done, printed, signed, and given to the patient. Steam Bone Press Tender: Dr. Ralf Pena [address] [facility] [address] [place] [address] Psychiatrist: Dr. Raji Tam [address] [place] [address] [phone]
--- NOTE | 2017-08-08 14:52 | NUR ---
TANGELA faxed referral to Dedrick at [facility] [address] [address] via ambulance trip # [id number] at 6:00pm . .
[2017-08-08 16:00] VITALS: BP 158/85
[2017-08-08] MEDS: INSULIN REGULAR, HUMAN 100 UNIT/ML 3 ML VIAL SQ PRN (17:29)
--- NOTE | 2017-08-08 17:48 | NUR ---
GPS/RN BS 253, ADMINISTERED 6 UNITS REGULAR INSULIN.
[2017-08-08 19:41] VITALS: BP 160/68
--- NOTE | 2017-08-08 20:15 | NUR ---
GPS BEDSPREAD CUTTER NOTES: RECEIVED PATIENT IN BED, AWAKE, NO COMPLAINS OF PAIN OR DISCOMFORT THIS TIME OF ASSESSMENT. PATIENT APPEARS UNKEMPT AND DISHEVELED. 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 REALITY ORIENTATION DONE. PATIENT DENIES ANY SUICIDAL THOUGHTS OR PLANS THIS TIME. PATIENT HAS ORDERS FOR DISCHARGE, PAPERS MADE READY. AMBULANCE PERSONNEL GIVEN A BRIEF REPORT REGARDING THE PATIENT'S STAY IN THE UNIT. BELONGINGS RETURNED TO THE PATIENT WELL THE BELONGINGS FROM THE SAFE. BP MEDICATION GIVEN- AMLODIPINE 5MG PO FOR THE BLOOD PRESSURE OF 160/98. BP RECHECKED WITH A READING OF 156/96 , HR-63 O2 SAT- 99%. [facility] CALLED REGARDING PATIENT'S BLOOD PRESSURE, PATIENT ACCEPTED AT THE PLACE. PATIENT PLACED IN THE GURNEY AND WHEELED OFF THE UNIT. PATIENT DISCHARGED IN GOOD AND STABLE CONDITION.
== END 2017-08-08 20:18 | DRG 885 ==
LOC: ER 23:52 → GPS 07-30 00:56
PROVIDERS: ADMIT Psychiatry & Neurology Psychosomatic Medicine; ATTEND Psychiatry & Neurology Psychosomatic Medicine
DX: F29 Unspecified psychosis not due to a substance or known physiological condition (principal); N17.0 Acute kidney failure with tubular necrosis; E11.65 Type 2 diabetes mellitus with hyperglycemia; F03.90 Unspecified dementia, unspecified severity, without behavioral disturbance, psychotic disturbance, mood disturbance, and anxiety; D63.8 Anemia in other chronic diseases classified elsewhere; E87.6 Hypokalemia; E78.5 Hyperlipidemia, unspecified; I10 Essential (primary) hypertension; G89.29 Other chronic pain; K59.09 Other constipation; N40.0 Benign prostatic hyperplasia without lower urinary tract symptoms; Z73.6 Limitation of activities due to disability
CPT/HCPCS: 36415; 80048-TC; 80053-TC; 80061-TC; 80164-TC; 80305; 81000-TC; 82962-TC; 85025-TC; 87081-TC; A4606; G0480; J1815; Q0162; Z7610

== ENCOUNTER 2018-07-02 20:41 | Inpatient (IN) | payer MEDICARE, BC ==
[~2018-07-02] VITALS: Ht 170.2 cm; Wt 95.3 kg
[~2018-07-02 20:41] MED LIST: AMLO5TAB9 PO; ASCO-340 PO; ATOR10TA PO; BISA10SU8 RC; CARV6.252 PO; CLON0.1T PO; DIVA125C2 PO; DOCU100C36 PO; INSU100I30 SQ; INSU100V3 SQ; MULT-213 PO; NA P133E RC; OLAN7.5T3 PO; POLY17PO4 PO; SENN-168 PO; TAMS0.4C34 PO
--- NOTE | 2018-07-02 20:50 | NUR ---
PT BIBRA. C/O "HAVING URINARY RETENTION, 0 DRAINAGE IN CATHETER, +FEVER" AOX1. -SOB -N/V -DIZZY. FOURNIER CATH IN PLACE. CATHETER HAS 20ML OF URINE. PT ON MONITOR IN BED 3. PT UNABLE TO VERBALIZE NEEDS BUT RESPONDS TO SIMPLE COMMANDS. WILL CONTINUE TO MONITOR.
--- NOTE | 2018-07-02 20:55 | NUR ---
TECH AT BEDSIDE FOR EKG
--- NOTE | 2018-07-02 21:00 | NUR ---
PHLEB AT BEDSIDE FOR LAB DRAW
--- NOTE | 2018-07-02 21:01 | NUR ---
URINE COLLECTED AND SENT TO LAB
[2018-07-02 21:18] LABS: APPEARANCE,URINE Turbid (CLEAR); BILIRUBIN,URINE SMALL (NEGATIVE); BLOOD, URINE Large Ery/uL (NEGATIVE); COLOR,URINE Yellow (YELLOW); KETONES,URINE Trace (NEGATIVE); LEUKOCYTE ESTERASE ,URINE Large (NEGATIVE); NITRITE, URINE Positive (NEGATIVE); PROTEIN,URINE 100 mg/dl (NEGATIVE); UGLUCOSE Negative (NEGATIVE); UROBILINOGEN,URINE 0.2 EU/dL (0.2)
[2018-07-02 21:19] LABS: BASOPHILS # (AUTO) 0.2 /CMM (0.0-0.2); BASOPHILS % (AUTO) 1.4 % (0.0-2.0); EOSINOPHILS % (AUTO) 0.8 % (0.0-6.0); HEMATOCRIT 34 % (39-51); HEMOGLOBIN 11.3 g/dL (13.5-17.5); MEAN CORPUSCULAR HGB CONC 33 g/dl (31.0-36.0); MEAN CORPUSCULAR VOLUME 87 fL (80-96); MONOCYTES # (AUTO) 0.9 /CMM (0.1-1.30); MONOCYTES % (AUTO) 7.4 % (2.0-12.0); NEUTROPHILS # (AUTO) 8.8 /CMM (1.8-8.9); NEUTROPHILS % (AUTO) 73.4 % (43.0-81.0); PLATELET COUNT (AUTO) 288 /CMM (150-450); RED BLOOD CELL COUNT(AUTO) 3.91 MIL/uL (4.5-6.0)
[2018-07-02 21:25] LABS: BACTERIA,URINE Moderate /HPF (None Seen); SQUAMOUS EPITHELIAL CELL,UR Few /HPF (None Seen); WBC,URINE TOO NUMEROUS TO COUN /HPF (0-3)
--- NOTE | 2018-07-02 21:41 | NUR ---
CALLED [facility] TO REQUEST A DR TO AWAITING DR. DOVE'S CALL
[2018-07-02 21:44] LABS: ALANINE AMINOTRANSFERASE 14 U/L (12-78); ALBUMIN 2.6 g/dL (3.4-5.0); ALKALINE PHOSPHATASE 78 U/L (46-116); ASPARTATE AMINOTRANSFERASE 9 U/L (15-37); BILIRUBIN,DIRECT 0.1 mg/dL (0.0-0.2); BILIRUBIN,TOTAL 0.5 mg/dL (0.2-1.0); CALCIUM, SERUM 9.1 mg/dL (8.5-10.1); CARBON DIOXIDE 29 mmol/L (21-32); CHLORIDE 107 mmol/L (98-107); CREATININE 1.6 mg/dL (0.6-1.3); GLUCOSE 211 mg/dL (74-106); SODIUM SERUM 144 mmol/L (136-145); TOTAL PROTEIN, SERUM 6.6 g/dL (6.4-8.2); UREA NITROGEN, BLOOD 27 mg/dL (7-18)
[2018-07-02 21:45] LABS: POTASSIUM 2.6 mmol/L (3.5-5.1)
--- NOTE | 2018-07-02 21:47 | NUR ---
[facility] CALLED FOR MED SURGE BED
--- NOTE | 2018-07-02 21:50 | NUR ---
315-2 MED SURGE BED GIVEN Addendum: 07/02/18 at 2208 by HFOX CORRECTION, [id number]
[2018-07-02] MEDS ORDERED: IV NS 0.9% 1,000 ML BAG IV ONE (22:00)
[2018-07-02] MEDS ORDERED: CEFTRIAXONE 1GM BAG (ER ONLY) 50 ML IV ONE ×2 (22:00→22:02)
[2018-07-02] MEDS ORDERED: POTASSIUM CL. PREMIX PERIPHER. 100 ML ONE (22:03)
[2018-07-02] MEDS: POTASSIUM CL. PREMIX PERIPHER. 50 ML IV SCH (22:19)
--- NOTE | 2018-07-02 22:25 | NUR ---
REPORT GIVEN TO MACEY TORRES FOR REINIER
[2018-07-02] MEDS ORDERED: ACETAMINOPHEN 325 MG TABLET PO PRN (23:00)
[2018-07-02] MEDS ORDERED: ONDANSETRON HCL/PF 4 MG/2 ML VIAL IVP PRN (23:00)
[2018-07-02] MEDS ORDERED: ZOLPIDEM TARTRATE 5 MG TABLET PO PRN (23:00)
[2018-07-02] MEDS ORDERED: DEXTROSE 50%-WATER 50 ML DISP.SYRIN IV PRN (23:00)
--- NOTE | 2018-07-02 23:00 | NUR ---
TELE/RN NOTES RECEIVED PT. FROM ER VIA [facility]. PT. IS AWAKE, ALERT AND ORIENTED TO SELF. BREATHING EVEN AND UNLABORED ON ROOM AIR. ORIENTED PT. TO ROOM. PT. IS CONFUSED AND ONLY ALERT TO SELF. NO SOB, RESPIRATORY DISTRESS OR COMPLAINTS OF PAIN NOTED AT THIS TIME. PT. WITH LEFT FOREARM 18 GAUGE IV SALINE LOCK PRESENT, PATENT AND INTACT. PLACED EXTERNAL WATER SOFTENER INSTALLER ON PT. CURRENT RHYTHM = SINUS RHYTHM HR 60. PT. WITH FOURNIER CATHETER PRESENT, PATENT AND INTACT DRAINING CLOUDY SHANNAN COLORED URINE WITH SEDIMENT. BED LOCKED AND IN LOWEST POSITION, SIDE RAILS UP X3, BED ALARM ON, CALL LIGHT WITHIN REACH, WILL CONTINUE TO MONITOR.
[2018-07-02 23:10] VITALS: BP 158/85
[2018-07-02] MEDS ORDERED: FURO-145 PO (23:27)
[2018-07-02] MEDS ORDERED: RISP0.5T20 PO (23:27)
[2018-07-02] MEDS ORDERED: METO50TA16 PO (23:27)
[2018-07-02] MEDS ORDERED: MENT3.5O TP (23:27)
[2018-07-02] MEDS ORDERED: ASPI-605 PO (23:27)
[2018-07-02] MEDS ORDERED: BENZ0.5T43 PO (23:27)
[2018-07-02] MEDS ORDERED: FINA5TAB11 PO (23:27)
[2018-07-02] MEDS ORDERED: DULO30CA2 PO (23:27)
[2018-07-02] MEDS ORDERED: TYL2T MC (23:27)
[2018-07-02] MEDS ORDERED: HYDR-4076 PO (23:27)
--- NOTE | 2018-07-02 23:45 | NUR ---
TELE/RN NOTES PT. BLADDER IS SOFT AND NON-DISTENDED. BLADDER SCAN PERFORMED. PT. WITH NO URINE NOTED IN BLADDER UPON BLADDER SCAN. EMPTIED 725ML OF CLOUDY SHANNAN COLORED URINE FROM PT. FOURNIER CATHETER. WILL CONTINUE TO MONITOR PT. URINE OUTPUT.
[2018-07-02 23:54] LABS: CALCIUM, SERUM 8.7 mg/dL (8.5-10.1); CARBON DIOXIDE 29 mmol/L (21-32); CHLORIDE 109 mmol/L (98-107); CREATININE 1.4 mg/dL (0.6-1.3); GLUCOSE 171 mg/dL (74-106); POTASSIUM 3.1 mmol/L (3.5-5.1); SODIUM SERUM 146 mmol/L (136-145); UREA NITROGEN, BLOOD 24 mg/dL (7-18)
[2018-07-03] MEDS: POTASSIUM CL. PREMIX PERIPHER. 50 ML IV SCH
[2018-07-03] MEDS: IV NS 0.9% 1,000 ML IV PRN ×2 (01:26→11:14)
[2018-07-03] MEDS: HEPARIN SODIUM, PORCINE 5000 UNITS/1 ML VIAL SQ SCH ×3 (01:27→21:29)
[2018-07-03] MEDS ORDERED: INSU100V3 SQ (01:46)
[2018-07-03] MEDS ORDERED: RISP0.5T20 PO (01:46)
[2018-07-03 04:00] VITALS: BP 144/71
[2018-07-03] MEDS: BLOOD SUGAR DIAGNOSTIC 1 EACH STRIP IN SCH ×4 (06:33→21:29)
--- NOTE | 2018-07-03 06:38 | NUR ---
TELE/RN NOTES PT. IS LYING IN BED RESTING. PT. IS EASILY AROUSABLE TO NAME AND TOUCH. AWAKE, ALERT AND ORIENTED TO SELF. BREATHING EVEN AND UNLABORED ON ROOM AIR. NO SOB, RESPIRATORY DISTRESS OR COMPLAINTS OF PAIN NOTED AT THIS TIME AND THROUGHOUT SHIFT. PT. WITH EXTERNAL FINE SANDER PRESENT AND INTACT CURRENT RHYTHM = SINUS CANDICE WITH 1ST DEGREE AV BLOCK HR 56. PT. WITH LEFT FOREARM 18 GAUGE PERIPHERAL IV PRESENT, PATENT AND INTACT ADMINISTERING TO PT. NS @ 100ML/HR. PT. WITH FOURNIER CATHETER PRESENT, PATENT AND INTACT DRAINING CLOUDY SHANNAN COLORED URINE WITH SEDIMENT. ALL PT. NEEDS MET. PT. OFFLOADED, TURNED AND REPOSITIONED Q2H AND NEEDED. BED LOCKED AND IN LOWEST POSITION, SIDE RAILS UP X3, BED ALARM ON, CALL LIGHT WITHIN REACH, WILL ENDORSE TO DAYSHIFT NURSE FOR CONTINUITY OF CARE.
--- NOTE | 2018-07-03 07:00 | NUR ---
RN OPENING NOTES PT RESTING IN BED. PT HARD TO WAKE UP BUT ARROUSABLE. PT HAS A LEFT FA #18 RUNNING NS@100 ML/HR. NO APPARENT S/S OF PAIN, DISTRESS OF SOB AT THIS TIME. NEURO CHECKS Q2H. SAFETY PRECAUTIONS IN PLACE, BED IN LOWEST LOCKED POSITION, X2 SIDE RAILS UP AND CALL LIGHT WITHIN REACH WILL CONTINUE TO MONITOR.
[2018-07-03 07:31] LABS: BASOPHILS # (AUTO) 0.1 /CMM (0.0-0.2); EOSINOPHILS % (AUTO) 2.9 % (0.0-6.0); HEMATOCRIT 35 % (39-51); HEMOGLOBIN 11.6 g/dL (13.5-17.5); LYMPHOCYTES # (AUTO) 2.9 /CMM (0.8-4.8); LYMPHOCYTES % (AUTO) 26.7 % (20.0-44.0); MEAN CORPUSCULAR HGB CONC 33 g/dl (31.0-36.0); MEAN CORPUSCULAR VOLUME 86 fL (80-96); MONOCYTES # (AUTO) 0.8 /CMM (0.1-1.30); MONOCYTES % (AUTO) 7.6 % (2.0-12.0); NEUTROPHILS # (AUTO) 6.6 /CMM (1.8-8.9); NEUTROPHILS % (AUTO) 61.8 % (43.0-81.0); PLATELET COUNT (AUTO) 281 /CMM (150-450); RED BLOOD CELL COUNT(AUTO) 4.06 MIL/uL (4.5-6.0); WHITE BLOOD COUNT (AUTO) 10.8 K/uL (4.3-11.0)
[2018-07-03 08:04] LABS: CARBON DIOXIDE 29 mmol/L (21-32); CHLORIDE 108 mmol/L (98-107); CHOLESTEROL 192 mg/dL (<200); CREATININE 1.2 mg/dL (0.6-1.3); GLUCOSE 122 mg/dL (74-106); HDL CHOLESTEROL 56 mg/dL (40-60); LDL 125 mg/dL (0-99); MAGNESIUM 1.7 mg/dL (1.8-2.4); PHOSPHORUS 3.7 mg/dL (2.5-4.9); SODIUM SERUM 146 mmol/L (136-145); TRIGLYCERIDES 83 mg/dL (30-150); UREA NITROGEN, BLOOD 21 mg/dL (7-18)
[2018-07-03 08:11] VITALS: BP 147/73
[2018-07-03 08:13] VITALS: BP 144/63
[2018-07-03 08:13] LABS: POTASSIUM 2.8 mmol/L (3.5-5.1)
--- NOTE | 2018-07-03 09:00 | NUR ---
RN NOTES PT POTASSIUM LEVEL 2.8, INFORMED DR HERNANDEZ.
--- NOTE | 2018-07-03 10:49 | NUR ---
WOUND CARE CONSULT: PT PRESENTS WITH INCONTINENCE AND PINK HEALED AREAS TO BACK, PRESENT ON ADMISSION. RECOMMENDATIONS MADE FOR SKIN PROTECTION. DISCUSSED WITH NURSING STAFF. WILL SEE PRN. VENEGAS IN AGREEMENT WITH PLAN OF CARE. Addendum: 07/03/18 at 1050 by JOHNNY EDWARDS WNDNU Amended: Links added.
[2018-07-03] MEDS ORDERED: Z GUARD REMEDY 2 OZ OINT TP PRN (11:00)
[2018-07-03] MEDS: POTASSIUM CHLORIDE 20 MEQ TAB.PRT.SR PO SCH ×3 (11:13→12:26)
[2018-07-03] MEDS: Z GUARD REMEDY 2 OZ OINT TP SCH (11:14)
[2018-07-03] MEDS: Magnesium 1GM/D5W 100ML PREMIX 100 ML IV SCH ×2 (11:14→12:26)
[2018-07-03] MEDS: INSULIN REGULAR, HUMAN 100 UNIT/ML 3 ML VIAL SQ PRN ×2 (12:26→17:15)
[2018-07-03 16:00] VITALS: BP 122/70
--- NOTE | 2018-07-03 19:42 | NUR ---
RN CLOSING NOTES PT RESTING IN BED. PT HAS A LEFT WRIST #18 RUNNING NS@100 ML/HR. NO APPARENT S/S OF PAIN, DISTRESS OF SOB AT THIS TIME. NEURO CHECKS Q2H. SAFETY PRECAUTIONS IN PLACE, BED IN LOWEST LOCKED POSITION, X2 SIDE RAILS UP AND CALL LIGHT WITHIN REACH WILL ENDORSE TO EAR NOSE THROAT SURGEON NURSE FOR CONTINUITY OF CARE.
--- NOTE | 2018-07-03 19:45 | NUR ---
MS POULTRY CUTTER INITIAL NOTES SEEN PT IN BED AWAKE AND ALERT TO HIS NAME BUT UNAWARE WHERE HE AT. RE-ORIENTED WHERE HE AT AND HOW TO USED THE CALL LIGHT SYSTEM. HE ALSO HAVE IVF OF NS AT 100ML/HR INFUSING ON HIS LEFT WRIST PATENT AND INTACT NO REDNESS NOTED. ASKIN IF HE HAD ANY PAIN HE TOLD ME "NO". BREATHING EVEN AND UNLABORED NOT IN ANY DISTRESS NOTED. FOURNIER TO GRAVITY DRAINING WELL WITH CLEAR YELLOW OUTPUT NOTED AT THIS TIME. KEPT HIM WARM AND COMFORTABLE AT ALL TIMES. ON SEMI FOWLERS POSITION WITH SIDE RAILS X2 UP AND BED IN LOW AND LENA ALARM SET FOR PT SAFETY. WILL CONTINUE MONITORING. PLACE CALL LIGHT AT REACH,.
[2018-07-03 20:00] VITALS: BP 157/82
[2018-07-03] MEDS: CEFTRIAXONE 1 G in IV D5W 50 ML IV SCH (21:16)
--- NOTE | 2018-07-03 21:30 | NUR ---
MS RECOVERY ENGINEER NOTES ROUTINE MEDS GIVEN WELL BLOOD SUGAR CHECKED DONE 114, NO INSULIN GIVEN AT THIS TIME. NO SIGNS OG HYPO GLYCEMIA NOTED. WILL CONTINUE MONITORING.
[2018-07-04] MEDS: IV NS 0.9% 1,000 ML IV PRN (02:44)
[2018-07-04] MEDS: BLOOD SUGAR DIAGNOSTIC 1 EACH STRIP IN SCH ×4 (06:28→22:19)
[2018-07-04] MEDS: INSULIN REGULAR, HUMAN 100 UNIT/ML 3 ML VIAL SQ PRN ×4 (06:31→22:41)
--- NOTE | 2018-07-04 07:10 | NUR ---
RN OPENING NOTES PT AWAKE AND ALERT, RESTING IN BED. NO COMPLAINTS OF PAIN, SOB OR DISTRESS AT THIS TIME. PT HAS A LEFT WRIST #22 INTACT AND RUNNING NS @100 ML/HR. SAFETY PRECAUTIONS IN PLACE, BED IN LOWEST LOCKED POSITION, X2 SIDE RAILS UP AND CALL LIGHT WITHIN REACH. WILL CONTINUE TO MONITOR.
--- NOTE | 2018-07-04 07:33 | NUR ---
ms tube coverer closing notes pt awake and alert denies any pain or any discomfort. all due meds given and all needs met. stable dorene the night and slept well. blood sugar checked 148, 2 units of insulin given dorene sq as ordered. morning care also done as well as skin care. IVF ns at 100 ml/hr still infusing on his left wrist kept him warm and comfortable at all times. place call light at reach. endorse to am nurse for continuity of care..
[2018-07-04 07:39] LABS: CALCIUM, SERUM 9.2 mg/dL (8.5-10.1); CARBON DIOXIDE 30 mmol/L (21-32); CHLORIDE 101 mmol/L (98-107); CREATININE 0.9 mg/dL (0.6-1.3); GLUCOSE 150 mg/dL (74-106); MAGNESIUM 1.8 mg/dL (1.8-2.4); POTASSIUM 2.9 mmol/L (3.5-5.1); SODIUM SERUM 141 mmol/L (136-145); UREA NITROGEN, BLOOD 9 mg/dL (7-18)
[2018-07-04 08:00] VITALS: BP_SYST 142; BP_SYST 146; BP_DIAS 70; BP_DIAS 86
[2018-07-04] MEDS: HEPARIN SODIUM, PORCINE 5000 UNITS/1 ML VIAL SQ SCH ×2 (08:17→20:52)
[2018-07-04] MEDS: Z GUARD REMEDY 2 OZ OINT TP SCH (08:21)
[2018-07-04] MEDS ORDERED: POTASSIUM CHLORIDE 20 MEQ TAB.PRT.SR PO ONE (11:30)
[2018-07-04 16:06] VITALS: BP 165/80
--- NOTE | 2018-07-04 20:01 | NUR ---
RN CLOSING NOTES PT RESTING IN BED. PT HAS A LEFT WRIST #22 INTACT AND PATENT. NO APPARENT S/S OF PAIN, DISTRESS OF SOB DURING SHIFT. SAFETY PRECAUTIONS IN PLACE, BED IN LOWEST LOCKED POSITION, X2 SIDE RAILS UP AND CALL LIGHT WITHIN REACH WILL ENDORSE TO ORDNANCE HANDLER NURSE FOR CONTINUITY OF CARE. PT NOW ON ISOLATION FOR MRSA NARES. DR HERNANDEZ INFORMED. BACTROBAN ORDERED.
--- NOTE | 2018-07-04 20:06 | NUR ---
RN MS OPENING NOTES RECEIVED PT IN BED, AWAKE ALERT ORIENTEDX2. BREATHING EVEN AND UNLABORED ON ROOM AIR, NO COMPLAINT OF PAIN OR DISCOMFORT AT THIS TIME. IV ACCESS ON THE L FA 22 G WITH NS @100ML/HR. F/C IN PLACE AND COLLECTING, URINE APPEARS CLEAR AND YELLOW. BED IN LOWEST LOCKED POSITION, CALL LIGHT WITHIN REACH AT ALL TIMES, WILL CONTINUE TO MONITOR.
[2018-07-04] MEDS: MUPIROCIN OINT 2% 22 GM TUBE SCH (20:52)
[2018-07-04 20:57] VITALS: BP 149/80
[2018-07-04] MEDS: CEFTRIAXONE 1 G in IV D5W 50 ML IV SCH (22:19)
--- NOTE | 2018-07-05 06:10 | NUR ---
RN MS CLOSING NOTES PT REMAINS IN BED, AWAKE ALERT ORIENTEDX2. BREATHING EVEN AND UNLABORED ON ROOM AIR, NO COMPLAINT OF PAIN OR DISCOMFORT AT THIS TIME. IV ACCESS ON THE L FA 22 G WITH NS TKO. F/C IN PLACE AND COLLECTING, URINE APPEARS CLEAR AND YELLOW. BED IN LOWEST LOCKED POSITION, CALL LIGHT WITHIN REACH AT ALL TIMES, WILL ENDORSE TO DAY NURSE FOR REINIER.
[2018-07-05] MEDS: BLOOD SUGAR DIAGNOSTIC 1 EACH STRIP IN SCH ×4 (06:20→22:24)
[2018-07-05] MEDS: INSULIN REGULAR, HUMAN 100 UNIT/ML 3 ML VIAL SQ PRN ×3 (06:23→22:27)
[2018-07-05 07:10] LABS: BASOPHILS # (AUTO) 0.1 /CMM (0.0-0.2); EOSINOPHILS % (AUTO) 2.2 % (0.0-6.0); HEMATOCRIT 38 % (39-51); HEMOGLOBIN 12.7 g/dL (13.5-17.5); LYMPHOCYTES # (AUTO) 2.4 /CMM (0.8-4.8); MEAN CORPUSCULAR HGB CONC 34 g/dl (31.0-36.0); MEAN CORPUSCULAR VOLUME 85 fL (80-96); MONOCYTES # (AUTO) 0.8 /CMM (0.1-1.30); MONOCYTES % (AUTO) 10.2 % (2.0-12.0); NEUTROPHILS # (AUTO) 4.2 /CMM (1.8-8.9); NEUTROPHILS % (AUTO) 54.6 % (43.0-81.0); PLATELET COUNT (AUTO) 331 /CMM (150-450); RED BLOOD CELL COUNT(AUTO) 4.43 MIL/uL (4.5-6.0); WHITE BLOOD COUNT (AUTO) 7.6 K/uL (4.3-11.0)
[2018-07-05 07:34] LABS: CALCIUM, SERUM 9.4 mg/dL (8.5-10.1); CARBON DIOXIDE 30 mmol/L (21-32); CHLORIDE 102 mmol/L (98-107); CREATININE 1.1 mg/dL (0.6-1.3); GLUCOSE 172 mg/dL (74-106); MAGNESIUM 1.8 mg/dL (1.8-2.4); PHOSPHORUS 4.2 mg/dL (2.5-4.9); POTASSIUM 3.4 mmol/L (3.5-5.1); SODIUM SERUM 141 mmol/L (136-145); UREA NITROGEN, BLOOD 12 mg/dL (7-18)
[2018-07-05 08:46] VITALS: BP 153/95
[2018-07-05] MEDS: MUPIROCIN OINT 2% 22 GM TUBE SCH ×2 (09:33→21:01)
[2018-07-05] MEDS: Z GUARD REMEDY 2 OZ OINT TP SCH (09:33)
[2018-07-05] MEDS: HEPARIN SODIUM, PORCINE 5000 UNITS/1 ML VIAL SQ SCH ×2 (09:34→21:03)
[2018-07-05] MEDS ORDERED: AMIKACIN 250 MG/ML VIAL IM SCH (11:00)
[2018-07-05] MEDS ORDERED: FEE PK DOSING 1 MIN EA MC ONE (11:18)
[2018-07-05] MEDS ORDERED: POTASSIUM CHLORIDE 20 MEQ TAB.PRT.SR PO SCH (11:30)
[2018-07-05] MEDS ORDERED: DOSING PER PHARMACY-AMIKACI IV XX PRN (11:30)
[2018-07-05] MEDS: AMIKACIN 500 MG in IV D5W 100 ML IV SCH (13:04)
[2018-07-05] MEDS: HYDROCODONE/APAP 5/325MG 1 EACH TABLET PO PRN ×2 (14:14→18:03)
[2018-07-05 16:31] VITALS: BP 137/86
--- NOTE | 2018-07-05 19:30 | NUR ---
MS RN INITIAL NOTES Patient in bed, awake, A/O x1 appears calm. Stable oxygen saturation on RA. Per report, urinary osorio cath was discontinued and removed at 1600 today, patient had not voided yet since then. Patient denies bladder discomfort, will reassess. Will reassess. Maintained safety, bed alarm on. Will cont to monitor.
[2018-07-05 20:00] VITALS: BP 139/87
[2018-07-05] MEDS: TAMSULOSIN 0.4 MG CAP.SR.24H PO SCH (21:05)
--- NOTE | 2018-07-06 06:39 | NUR ---
MS CLOSING NOTES 2308: Patient with no urine after 6 hours Osorio cath was removed at 1600, previous shift. No c/o bladder discomfort. Bladder scan showed 485vol urine. Notified JAIME Goode. Straight cath done, 480ml urine from urinary bag, patient tolerated well, denies pain. 0314: Bladder scan showed 400vol unine, patient still denies bladder discomfort. 2nd Straight cath done with 385ml urine from urinary bag, patient tolerated well. 0635: Bladder scan showed 111vol urine, bladder not distended, denies pain. VSS denies pain, afebrile. Remains on contact isolation, PPE utilized. Maintained safety. Straight I/O cath every 4 hours, per JAIME Goode to follow up in AM if urinary osorio cath needed. Will endorse to oncoming RN.
[2018-07-06] MEDS: BLOOD SUGAR DIAGNOSTIC 1 EACH STRIP IN SCH ×4 (06:48→21:49)
[2018-07-06] MEDS: INSULIN REGULAR, HUMAN 100 UNIT/ML 3 ML VIAL SQ PRN ×4 (06:49→22:01)
[2018-07-06 07:17] LABS: CALCIUM, SERUM 9.3 mg/dL (8.5-10.1); CARBON DIOXIDE 28 mmol/L (21-32); CHLORIDE 102 mmol/L (98-107); CREATININE 1.1 mg/dL (0.6-1.3); GLUCOSE 195 mg/dL (74-106); SODIUM SERUM 142 mmol/L (136-145); UREA NITROGEN, BLOOD 21 mg/dL (7-18)
[2018-07-06 08:00] VITALS: BP 131/54
--- NOTE | 2018-07-06 08:30 | NUR ---
MS RN NOTES PATIENT IN BED ALERT ORIENTED X 1. NO ACUTE DISTRESS NOTED, BREATHING UNLABORED. NO SOB NOTED. IV ACCESS PATENT AND INTACT. HOB ELEVATED. SAFETY MEASURES IN PLACE. CALL LIGHT WITHIN REACH. REPORT GIVEN BY HUGO CHOUDHURY WILL CONTINUE TO MONITOR ACCORDINGLY.
[2018-07-06] MEDS: MUPIROCIN OINT 2% 22 GM TUBE SCH ×2 (09:13→22:05)
[2018-07-06] MEDS: Z GUARD REMEDY 2 OZ OINT TP SCH (09:14)
[2018-07-06] MEDS: HEPARIN SODIUM, PORCINE 5000 UNITS/1 ML VIAL SQ SCH ×2 (09:15→21:59)
--- NOTE | 2018-07-06 11:24 | NUR ---
MS RN NOTES SEEN AND EVALUATED BY WINNIE LINDA WITH NEW ORDERS TO INSERT FOURNIER CATHETER. WILL KEEP FOURNIER CATHETER DURING DISCHARGE. NOTED AND CARRIED OUT
[2018-07-06] MEDS: POTASSIUM CHLORIDE 20 MEQ TAB.PRT.SR PO SCH ×3 (11:44→15:45)
[2018-07-06] MEDS: AMIKACIN 500 MG in IV D5W 100 ML IV SCH (11:49)
--- NOTE | 2018-07-06 12:00 | NUR ---
MS RN NOTES INSERTED 16FR. FOURNIER CATHETER USING ASEPTIC TECHNIQUE. BULB INFLATED WITH 10 MLS STERILE SALINE. CATHETER SECURED TO LEFT INNER THIGH. 550 MLS CLEAR YELLOW URINE RETURN NOTED IN BAG. PATIENT TOLERATED WELL.
[2018-07-06 16:00] VITALS: BP 163/96
--- NOTE | 2018-07-06 19:00 | NUR ---
MS RN NOTES PATIENT IN BED ALERT ORIENTED X 1. NO ACUTE DISTRESS NOTED, BREATHING UNLABORED. NO SOB NOTED. IV ACCESS PATENT AND INTACT. HOB ELEVATED. DUE MEDICATIONS GIVE, NO ASE NOTED.FOURNIER CATHETER INTACT DRAINING CLEAR YELLOW URINE. NEEDS ATTENDED AND ANTICIPATED. KEPT CLEAN DRY AND COMFORTABLE. SAFETY MEASURES IN PLACE. CALL LIGHT WITHIN REACH. ENDORSED TO NIGHT NURSE FOR CONTINUITY OF CARE.
--- NOTE | 2018-07-06 19:53 | NUR ---
MS RN NOTES RECEIVED PATIENT AWAKE IN BED AND WATCHING TV WITH NO DISTRESS NOTED. CALL LIGHT WITHIN REACH. NO C/O PAIN OR DISCOMFORT. PERIPHERAL LINE INTACT AND PATENT. FC INTACT AND PATENT. NO ABDOMINAL DISTENTION NOTED. ALL BELONGINGS KEPT NEAR BEDSIDE. BED ALARM ON AND FUNCTIONING PROPERLY. BED IN LOW LOCK SETTING. WILL CONTINUE TO MONITOR.
[2018-07-06 20:00] VITALS: BP 158/87
[2018-07-06] MEDS: TAMSULOSIN 0.4 MG CAP.SR.24H PO SCH (21:49)
[2018-07-07] MEDS: INSULIN REGULAR, HUMAN 100 UNIT/ML 3 ML VIAL SQ PRN ×4 (06:33→21:11)
[2018-07-07] MEDS: BLOOD SUGAR DIAGNOSTIC 1 EACH STRIP IN SCH ×4 (06:34→21:07)
--- NOTE | 2018-07-07 06:45 | NUR ---
MS RN NOTES PATIENT ASLEEP IN BED WITH NO DISTRESS NOTED. BRENDA LIGHT WITHIN REACH. NO C/O PAIN OR DISCOMFORT. FC INTACT AND PATENT AND DRAINING 300ML YELLOW CLEAR URINE. ABDOMEN REMAINS SOFT AND NON DISTENDED. PERIPHERAL LINE INTACT AND PATENT. ALL DUE MEDS GIVEN ORDERED WITH NO ASE. CONTACT ISOLATION OBSERVED AND MAINTAINED AT ALL TIMES. BED IN LOW LOCK SETTING. ALL BELONGINGS WITHIN REACH. WILL ENDORSE TO ONCOMING SHIFT.
[2018-07-07 07:12] LABS: CARBON DIOXIDE 28 mmol/L (21-32); CHLORIDE 104 mmol/L (98-107); CREATININE 1.2 mg/dL (0.6-1.3); GLUCOSE 212 mg/dL (74-106); MAGNESIUM 1.8 mg/dL (1.8-2.4); POTASSIUM 3.4 mmol/L (3.5-5.1); SODIUM SERUM 141 mmol/L (136-145); UREA NITROGEN, BLOOD 21 mg/dL (7-18)
--- NOTE | 2018-07-07 07:30 | NUR ---
MS/RN NOTE THE PATIENT ALERT AND ORIENTED X1. REDIRECTION AND REORIENTATION PROVIDED. IN ROOM AIR AND DENIES SOB. RESPIRATION REGULAR AND UNLABORED. DENIES PAIN. THE PATIENT IN NO APPARENT DISTRESS. FOURNIER CATH DRAINING CLEAR, YELLOW COLOR URINE. LFA G 22 PATENT AND SALINE LOCKED. CONTACT ISOLATION PROVIDED AT ALL TIMES. BED LOW AND LOCKED. SIDE RAILS UP X3. CALL LIGHT WITHIN REACH. WILL CONTINUE TO MONITOR.
[2018-07-07 08:00] VITALS: BP 157/83
[2018-07-07] MEDS: HEPARIN SODIUM, PORCINE 5000 UNITS/1 ML VIAL SQ SCH ×2 (09:10→20:53)
[2018-07-07] MEDS: Z GUARD REMEDY 2 OZ OINT TP SCH (09:13)
[2018-07-07] MEDS: MUPIROCIN OINT 2% 22 GM TUBE SCH ×2 (09:14→20:56)
[2018-07-07] MEDS ORDERED: POTASSIUM CHLORIDE 20 MEQ TAB.PRT.SR PO SCH (10:30)
[2018-07-07] MEDS: AMIKACIN 500 MG in IV D5W 100 ML IV SCH (12:00)
[2018-07-07 16:00] VITALS: BP 127/83
--- NOTE | 2018-07-07 18:20 | NUR ---
MS/RN NOTE THE PATIENT ALERT AND ORIENTED X1. REDIRECTION AND REORIENTATION PROVIDED. IN ROOM AIR AND DENIES SOB. RESPIRATION REGULAR AND UNLABORED. DENIES PAIN. THE PATIENT IN NO APPARENT DISTRESS. FOURNIER CATH IN PLACE. NOTED CLEAR AND YELLOW COLOR URINE. LFA G 22 PATENT AND SALINE LOCKED. BED LOW AND LOCKED. SIDE RAILS UP X3. CALL LIGHT WITHIN REACH. WILL ENDORSE TO SHUTTLE TRUCK DRIVER.
--- NOTE | 2018-07-07 19:05 | NUR ---
MS RN OPENING NOTES Received patient in bed, alert, oriented x 1. Breathing even and unlabored. Not in any distress. No complaints as of this time. Bone catheter in place,clear yellow urine noted. Safety measures in place; call hair within reach. Bed in low, locked position. Patient stable as endorsed by the AM RN. Will continue to monitor accordingly
[2018-07-07 20:00] VITALS: BP 127/78
[2018-07-07] MEDS: TAMSULOSIN 0.4 MG CAP.SR.24H PO SCH (21:07)
--- NOTE | 2018-07-07 21:20 | NUR ---
RN NOTES BSL checked- 203mg/dL. 4 units insulin given per sliding scale.
[2018-07-08] MEDS: BLOOD SUGAR DIAGNOSTIC 1 EACH STRIP IN SCH ×4 (06:31→21:10)
[2018-07-08] MEDS: INSULIN REGULAR, HUMAN 100 UNIT/ML 3 ML VIAL SQ PRN ×4 (06:39→21:18)
--- NOTE | 2018-07-08 06:39 | NUR ---
RN NOTES BSL checked- 171mg/dL. 3 units insulin given per sliding scale.
--- NOTE | 2018-07-08 06:53 | NUR ---
MS RN CLOSING NOTES Patient still sleeping in bed, easily arousable. Breathing even and unlabored. Not in any distress. On O2 at 2LPM via NC. No complaints of pain or discomfort. No acute changes overnight. Bone catheter in place, drained 425mL of clear, yellow urine. All needs attended to. All due meds given as ordered. Safety measures in place. Isolation precautions maintained. Will endorse REINIER to oncoming RN
--- NOTE | 2018-07-08 07:00 | NUR ---
RN OPENING NOTES RECEIVED PATIENT IN BD RESTING. A/OX1, CONFUSED. NOT IN ANY FORM OF DISTRESS, NO SOB. NO S/S OF PAIN OR DISCOMFORT. IV ACCESS INTACT AND PATENT. FOURNIER IN PLACE, DRAINING URINE WELL. KEPT PATIENT SAFE AND COMFORTABLE, BED IN LOW/LOCKED POSITION, SIDERAILS UPX2, CALL LIGHT IN REACH. WILL CONTINUE TO MONITOR ACCORDINGLY.
[2018-07-08 07:51] LABS: CALCIUM, SERUM 9.4 mg/dL (8.5-10.1); CARBON DIOXIDE 29 mmol/L (21-32); CHLORIDE 103 mmol/L (98-107); CREATININE 1.4 mg/dL (0.6-1.3); GLUCOSE 185 mg/dL (74-106); POTASSIUM 3.3 mmol/L (3.5-5.1); SODIUM SERUM 142 mmol/L (136-145); UREA NITROGEN, BLOOD 26 mg/dL (7-18)
[2018-07-08 08:00] VITALS: BP 130/76
[2018-07-08] MEDS: Z GUARD REMEDY 2 OZ OINT TP SCH (09:04)
[2018-07-08] MEDS: MUPIROCIN OINT 2% 22 GM TUBE SCH ×2 (09:08→21:01)
[2018-07-08] MEDS: HEPARIN SODIUM, PORCINE 5000 UNITS/1 ML VIAL SQ SCH ×2 (09:11→20:59)
[2018-07-08] MEDS ORDERED: POTASSIUM CHLORIDE 20 MEQ TAB.PRT.SR PO SCH (11:30)
[2018-07-08] MEDS: AMIKACIN 500 MG in IV D5W 100 ML IV SCH (13:03)
[2018-07-08 16:00] VITALS: BP 144/80
--- NOTE | 2018-07-08 18:54 | NUR ---
RN CLOSING NOTES PATIENT IN STABLE CONDITION. ALL NEEDS ATTENDED AND PROVIDED. ALL DUE MEDS GIVEN ORDERED. KEPT PATIENT SAFE AND COMFORTABLE. BED IN LOW/LOCKED POSITION, SIDERAILS UP, CALL LIGHT IN REACH. WILL ENDORSED TO NIGHT RN FOR REINIER.
[2018-07-08 19:46] VITALS: BP 138/78
[2018-07-08 20:00] VITALS: BP 138/78
[2018-07-08] MEDS ORDERED: IV NS 0.9% 1,000 ML IV PRN (20:49)
[2018-07-08] MEDS: TAMSULOSIN 0.4 MG CAP.SR.24H PO SCH (21:11)
--- NOTE | 2018-07-08 21:18 | NUR ---
RN NOTES BSL checked- 224mg/dL. 4 units insulin given per sliding scale.
[2018-07-09 06:33] LABS: BASOPHILS # (AUTO) 0.1 /CMM (0.0-0.2); BASOPHILS % (AUTO) 0.9 % (0.0-2.0); EOSINOPHILS % (AUTO) 2.5 % (0.0-6.0); HEMATOCRIT 36 % (39-51); HEMOGLOBIN 12.1 g/dL (13.5-17.5); LYMPHOCYTES # (AUTO) 2.7 /CMM (0.8-4.8); MEAN CORPUSCULAR HGB CONC 34 g/dl (31.0-36.0); MEAN CORPUSCULAR VOLUME 86 fL (80-96); MONOCYTES # (AUTO) 0.9 /CMM (0.1-1.30); MONOCYTES % (AUTO) 9.3 % (2.0-12.0); NEUTROPHILS # (AUTO) 5.7 /CMM (1.8-8.9); NEUTROPHILS % (AUTO) 59.3 % (43.0-81.0); PLATELET COUNT (AUTO) 313 /CMM (150-450); RED BLOOD CELL COUNT(AUTO) 4.18 MIL/uL (4.5-6.0); WHITE BLOOD COUNT (AUTO) 9.7 K/uL (4.3-11.0)
[2018-07-09] MEDS: BLOOD SUGAR DIAGNOSTIC 1 EACH STRIP IN SCH ×2 (06:37→12:27)
[2018-07-09] MEDS: INSULIN REGULAR, HUMAN 100 UNIT/ML 3 ML VIAL SQ PRN ×2 (06:40→12:28)
--- NOTE | 2018-07-09 06:41 | NUR ---
RN NOTES BSL checked- 149mg/dL. 2 units insulin given per sliding scale.
[2018-07-09 06:43] LABS: ALANINE AMINOTRANSFERASE 15 U/L (12-78); ALBUMIN 2.7 g/dL (3.4-5.0); ALKALINE PHOSPHATASE 72 U/L (46-116); ASPARTATE AMINOTRANSFERASE 9 U/L (15-37); BILIRUBIN,TOTAL 0.4 mg/dL (0.2-1.0); CALCIUM, SERUM 9.4 mg/dL (8.5-10.1); CARBON DIOXIDE 27 mmol/L (21-32); CHLORIDE 105 mmol/L (98-107); CREATINE KINASE, TOTAL 38 U/L (39-308); CREATININE 1.3 mg/dL (0.6-1.3); GLUCOSE 163 mg/dL (74-106); MAGNESIUM 1.7 mg/dL (1.8-2.4); PHOSPHORUS 4.1 mg/dL (2.5-4.9); POTASSIUM 3.3 mmol/L (3.5-5.1); SODIUM SERUM 141 mmol/L (136-145); TOTAL PROTEIN, SERUM 7.1 g/dL (6.4-8.2); UREA NITROGEN, BLOOD 30 mg/dL (7-18)
[2018-07-09 06:45] LABS: APPEARANCE,URINE SL CLOUDY (CLEAR); BILIRUBIN,URINE NEGATIVE (NEGATIVE); BLOOD, URINE 2+ Ery/uL (NEGATIVE); COLOR,URINE YELLOW (YELLOW); KETONES,URINE NEGATIVE (NEGATIVE); LEUKOCYTE ESTERASE ,URINE TRACE (NEGATIVE); NITRITE, URINE NEGATIVE (NEGATIVE); PH,URINE 5.5 (5.0-8.0); PROTEIN,URINE 1+ mg/dl (NEGATIVE); UGLUCOSE NEGATIVE (NEGATIVE); UROBILINOGEN,URINE 0.2 EU/dL (0.2)
[2018-07-09 06:53] LABS: BACTERIA,URINE Moderate /HPF (None Seen); CALCIUM OXALATE CRYSTALS,UR Rare /HPF (None Seen); SQUAMOUS EPITHELIAL CELL,UR Few /HPF (None Seen); URIC ACID CRYSTALS,URINE Few /HPF (None Seen); WBC,URINE 81-100 /HPF (0-3); YEAST,URINE Few /HPF (None Seen)
[2018-07-09 06:54] LABS: CREATININE, URINE 200.4 MG/DL (30.0-125.0); URINE TOTAL PROTEIN 128.6 mg/dL (0-11.9)
[2018-07-09 07:28] LABS: EOSINOPHIL,URINE Rare
--- NOTE | 2018-07-09 07:28 | NUR ---
MS RN CLOSING NOTES Patient remains stable. Breathing even and unlabored. Not in any distress. Peripheral IV infusing at 50mL/hr. No complaints as of this time. No acute changes overnight. Safety measures in place. Isolation precaution in place. Endorsed REINIER to AM RN
--- NOTE | 2018-07-09 07:30 | NUR ---
MS RN OPENING NOTES Received patient in bed awake AOX1, no signs and symptoms of distress. Breathing even and unlabored on 2 li. o2 therapy via nasal canula. Patient denies pain or discomfort at this time. IV on RFA G#20 patent running NS 50 ml/hr. Bone catheter in place, patent, draining well, clear yellow urine noted. Safety measures in place; call hair within reach. Bed in low, locked position. Will continue to monitor accordingly
[2018-07-09 08:24] VITALS: BP 121/67
[2018-07-09] MEDS: HEPARIN SODIUM, PORCINE 5000 UNITS/1 ML VIAL SQ SCH (08:37)
[2018-07-09] MEDS: Z GUARD REMEDY 2 OZ OINT TP SCH (08:43)
[2018-07-09] MEDS: MUPIROCIN OINT 2% 22 GM TUBE SCH (08:48)
[2018-07-09] MEDS ORDERED: POTASSIUM CHLORIDE 20 MEQ TAB.PRT.SR PO SCH (09:00)
[2018-07-09] MEDS: Magnesium 1GM/D5W 100ML PREMIX 100 ML IV SCH ×2 (09:23→10:33)
--- NOTE | 2018-07-09 11:21 | NUR ---
MS RN NOTES CALLED TO DR. GUEVARA CLARIFYING DISCHARGE ORDERS ORDERS RECITED TO Deanna/Allen HERRERA AND KEEP FOURNIER DUE TO RETENTION, ALSO FOLLOW UP WITH UROLOGY OUTPATIENT AND ORDER HOME HEALTH, VERIFIED WITH CASE MANAGEMENT PATIENT HAS [facility] ARRANGED.
--- NOTE | 2018-07-09 12:00 | NUR ---
MS RN NOTES NOTIFIED KRISTIE PATIENTS NIECE PATIENT IS BEING DISCHARGE TO [facility] TODAY.
--- NOTE | 2018-07-09 13:15 | NUR ---
MS RN NOTES PATIENT DISCHARGED TO [facility] PATIENT ALERT, ORIENTED X1. IN STABLE CONDITION. MD AWARE OF ALL ABNORMAL LABS. ALL DUE MEDICATIONS ADMINISTERED. ALL NEEDS MET. DISCHARGE PROTOCOL FOLLOWED. PERIPHERAL IV REMOVED WITH MINIMAL BLEEDING. ID BAND REMOVED. ALL BELONGINGS ACCOUNTED FOR. BELONGING LIST SIGNED BY TWO NURSES. PATIENT TRANSFERRED BY EMT AMBULANCE.
== END 2018-07-09 14:10 | disposition home health service (06) | DRG 871 ==
LOC: ER 20:46 → MED 21:57 → TELE 23:17 → MED 07-03 12:15
PROVIDERS: ADMIT Nurse Practitioner Acute Care; ATTEND Internal Medicine
DX: A41.9 Sepsis, unspecified organism (principal); G93.41 Metabolic encephalopathy; N17.0 Acute kidney failure with tubular necrosis; N39.0 Urinary tract infection, site not specified; E87.0 Hyperosmolality and hypernatremia; E87.2 Acidosis; E44.0 Moderate protein-calorie malnutrition; N40.1 Benign prostatic hyperplasia with lower urinary tract symptoms; R33.8 Other retention of urine; E87.6 Hypokalemia; E78.5 Hyperlipidemia, unspecified; G89.29 Other chronic pain; N28.1 Cyst of kidney, acquired; Z79.4 Long term (current) use of insulin; D63.8 Anemia in other chronic diseases classified elsewhere; G47.33 Obstructive sleep apnea (adult) (pediatric); K59.09 Other constipation; M54.5 Low back pain; E86.9 Volume depletion, unspecified; E11.65 Type 2 diabetes mellitus with hyperglycemia; G30.9 Alzheimer's disease, unspecified; F02.80 Dementia in other diseases classified elsewhere, unspecified severity, without behavioral disturbance, psychotic disturbance, mood disturbance, and anxiety; E88.09 Other disorders of plasma-protein metabolism, not elsewhere classified; Z68.32 Body mass index [BMI] 32.0-32.9, adult; B96.4 Proteus (mirabilis) (morganii) as the cause of diseases classified elsewhere; Z16.12 Extended spectrum beta lactamase (ESBL) resistance; B96.89 Other specified bacterial agents as the cause of diseases classified elsewhere; E66.01 Morbid (severe) obesity due to excess calories; Z22.322 Carrier or suspected carrier of Methicillin resistant Staphylococcus aureus; E86.1 Hypovolemia; I10 Essential (primary) hypertension; Z16.24 Resistance to multiple antibiotics
CPT/HCPCS: 36415; 71045-TC; 76770-TC; 80048-TC; 80053-TC; 80061-TC; 80076-TC; 80150; 81000-TC; 82550-TC; 82570-TC; 82962-TC; 83605-TC; 83735-TC; 84100-TC; 84155-TC; 84300-TC; 84484-TC; 85025-TC; 85730-TC; 87040-TC; 87081-TC; 87086-TC; 87186-TC; 92611-TC; A6253; A6402; A7526; G0378; J0278; J0696; J1644; J1815; J3475; J3480; J7030; J7050; J7060

== ENCOUNTER 2018-09-07 19:57 | Inpatient (IN) | payer MEDICARE, BC ==
[~2018-09-07] VITALS: Ht 170.2 cm; Wt 88.5 kg
[~2018-09-07 19:57] MED LIST changes: -ASCO-340 PO; +ASPI-605 PO; +BENZ0.5T43 PO; -BISA10SU8 RC; -CARV6.252 PO; -CLON0.1T PO; -DIVA125C2 PO; -DOCU100C36 PO; +DULO30CA2 PO; +FINA5TAB11 PO; +FURO-145 PO; +HYDR-4076 PO; +MENT3.5O TP; +METO50TA16 PO; -MULT-213 PO; -NA P133E RC; -OLAN7.5T3 PO; -POLY17PO4 PO; +RISP0.5T20 PO; -SENN-168 PO; +TYL2T MC
--- NOTE | 2018-09-07 20:22 | NUR ---
Ced patterson in ED - 09/07/18 at 2021 by QUIANA CALLED RT FOR BREATHING TX.
--- NOTE | 2018-09-07 20:22 | NUR ---
CALLED RT FOR BREATHING TX
--- NOTE | 2018-09-07 20:24 | NUR ---
[id number] FROM [facility] AND CARE C/O SOB X1 DAY. PER RA, O2 SAT 82% RA GRAPHICS PROGRAMMER, PLACED ON NC 3L/M, SPO2 UP TO 97%. PT NOTED TO BE TACHYPNIC AT 28-32 W/ ABD BREATHING NOTED. PT IS AAOX1 AT BASELINE AND ABLE TO ANSWER SIMPLE YES/NO QUESTIONS. PT PLACED ON MELTER CASTER AND POX. PT SAFETY AND COMFORT MEASURES IN PLACE. SIDE RAILS RAISED, BED PLACED ON LOWEST POSITION. MILD S/S OF RESPIRATORY DISTRESS NOTED. WILL CONTINUE TO MONITOR PT.
[2018-09-07] MEDS ORDERED: ALBUTEROL FS 2.5 MG/3 ML VIAL.NEB ONE (20:26)
[2018-09-07] MEDS ORDERED: IPRATROPIUM NEB FS 0.5 MG/2.5 ML AMPUL.NEB ONE (20:26)
[2018-09-07] MEDS ORDERED: IPRATROPIUM NEB FS 0.5 MG/2.5 ML AMPUL.NEB NEB ONE (20:30)
[2018-09-07] MEDS ORDERED: ALBUTEROL FS 2.5 MG/3 ML VIAL.NEB NEB ONE (20:30)
[2018-09-07 20:36] LABS: BASOPHILS % (AUTO) 0.1 % (0.0-2.0); HEMATOCRIT 39 % (39-51); HEMOGLOBIN 13.1 g/dL (13.5-17.5); LYMPHOCYTES # (AUTO) 2.1 /CMM (0.8-4.8); LYMPHOCYTES % (AUTO) 9.6 % (20.0-44.0); MEAN CORPUSCULAR HGB CONC 34 g/dl (31.0-36.0); MEAN CORPUSCULAR VOLUME 89 fL (80-96); MONOCYTES # (AUTO) 2.3 /CMM (0.1-1.30); MONOCYTES % (AUTO) 10.5 % (2.0-12.0); NEUTROPHILS # (AUTO) 17.7 /CMM (1.8-8.9); NEUTROPHILS % (AUTO) 79.8 % (43.0-81.0); PLATELET COUNT (AUTO) 298 /CMM (150-450); RED BLOOD CELL COUNT(AUTO) 4.37 MIL/uL (4.5-6.0); WHITE BLOOD COUNT (AUTO) 22.2 K/uL (4.3-11.0)
[2018-09-07 20:44] LABS: APPEARANCE,URINE Slightly Cloudy (CLEAR); BILIRUBIN,URINE Negative (NEGATIVE); BLOOD, URINE Trace-lysed Ery/uL (NEGATIVE); COLOR,URINE Yellow (YELLOW); KETONES,URINE Negative (NEGATIVE); LEUKOCYTE ESTERASE ,URINE Small (NEGATIVE); NITRITE, URINE Positive (NEGATIVE); PROTEIN,URINE 100 mg/dl (NEGATIVE); UGLUCOSE Negative (NEGATIVE); UROBILINOGEN,URINE 0.2 EU/dL (0.2)
[2018-09-07 20:54] LABS: BACTERIA,URINE 3+ /HPF (None Seen); SQUAMOUS EPITHELIAL CELL,UR Few /HPF (None Seen)
[2018-09-07 20:55] LABS: CALCIUM, SERUM 9.2 mg/dL (8.5-10.1); CARBON DIOXIDE 32 mmol/L (21-32); CHLORIDE 100 mmol/L (98-107); CREATININE 1.9 mg/dL (0.6-1.3); GLUCOSE 262 mg/dL (74-106); POTASSIUM 3.8 mmol/L (3.5-5.1); SODIUM SERUM 141 mmol/L (136-145); UREA NITROGEN, BLOOD 22 mg/dL (7-18)
[2018-09-07] MEDS ORDERED: PIPERACILLIN /TAZOBACTAM 3.375 G in IV D5W 50 ML IV ONE (21:00)
[2018-09-07 21:10] LABS: ALANINE AMINOTRANSFERASE 12 U/L (12-78); ALBUMIN 2.7 g/dL (3.4-5.0); ALKALINE PHOSPHATASE 69 U/L (46-116); ASPARTATE AMINOTRANSFERASE 8 U/L (15-37); B-TYPE NATRIURETIC PEPTIDE 941 PG/ML (0-125); BILIRUBIN,DIRECT 0.1 mg/dL (0.0-0.2); BILIRUBIN,TOTAL 0.4 mg/dL (0.2-1.0); TOTAL PROTEIN, SERUM 7.5 g/dL (6.4-8.2)
[2018-09-07] MEDS ORDERED: PIPERACILLIN /TAZOBACTAM 3.375 G VIAL IV ONE (21:18)
[2018-09-07] MEDS ORDERED: IV NS 0.9% 1,000 ML BAG IV ONE ×3 (21:30)
--- NOTE | 2018-09-07 21:53 | NUR ---
PT RESTING IN BED WITH MILD S/S OF RESPIRATORY DISTRESS NOTED. WILL CONTINUE TO MONITOR PT. PT PENDING ADMISSION
--- NOTE | 2018-09-07 22:40 | NUR ---
REPORT GIVEN TO BEHAVIORAL HEALTH DIRECTOR CHANNEL FOR REINIER
[2018-09-07] MEDS ORDERED: MAGNESIUM HYDROXIDE 30 ML UDC PO PRN (23:00)
[2018-09-07] MEDS ORDERED: TEMAZEPAM 15 MG CAPSULE PO PRN (23:00)
[2018-09-07] MEDS ORDERED: ALBUTEROL FS 2.5 MG/0.5 ML VIAL.NEB NEB PRN (23:00)
[2018-09-07] MEDS ORDERED: DEXTROSE 50%-WATER 50 ML DISP.SYRIN IV PRN (23:00)
[2018-09-07] MEDS ORDERED: ONDANSETRON HCL/PF 4 MG/2 ML VIAL IVP PRN (23:00)
[2018-09-07] MEDS ORDERED: ACETAMINOPHEN 325 MG TABLET PO PRN (23:00)
[2018-09-07] MEDS ORDERED: MAG HYDROX/AL HYDROX/SIMETH 30 ML UDC PO PRN (23:00)
[2018-09-07] MEDS ORDERED: Z GUARD REMEDY 2 OZ OINT TP PRN (23:00)
[2018-09-07] MEDS ORDERED: MORPHINE SULFATE INJ 2 MG/ML DISP.SYRIN IV PRN (23:00)
--- NOTE | 2018-09-07 23:02 | NUR ---
[facility] STAFF NUMBER: [phone] ROJAS
--- NOTE | 2018-09-07 23:03 | NUR ---
RN INTIAL MED CHERIE ADDMITTING NOTES: RECIVED PT FROM ER, REPORT GIVEN BY X RAY EQUIPMENT SERVICER. PT AO TIMES 1. SKIN IN TACT. ON NASAL CANNUAL 3 LITERS. TOLERATING WELL. NO SIGNS OF DISTRESS. NO FACIAL GRIMICING. NORMAL SINUS RYTHM ON TELE MONITER. UNABLE TO ASSES AT THIS POINT. PT BEDBOUND. BED LOW AND LOCKED SAFETY MEASURES IN PLACE. LAC 1 GAUGE NS RUNNING. AT 75 ML/HR. PT COMFORTABLE IN BED. WILL CONTINUE TO MONITER
--- NOTE | 2018-09-07 23:15 | NUR ---
SAMPLER TESTER NOTES RECEIVED PT FROM ED VIA STRETCHER. PLACED PATIENT IN BED, ALERT AND ORIENTED X1. ON TELE SR, HR 80. NO PAIN OR ACUTE DISTRESS NOTED AT THIS TIME. ON OXYGEN 3L VIA NC, RESPIRATION EVEN AND UNLABORED, NO SOB NOTED. SKIN IS DRY WARM TO TOUCH. IV SITE NOTED TO RIGHT AC #[id number], SITE CLEAR. C/D/I, PATENT AND FLUSHING WELL. FOURNIER CATHETER IS IN PLACE, DRAINING YELLOW URINE WITH SEDIMENTS. PICS TAKEN. CALL LIGHT WITHIN REACH. BED LOCKED AND IN LOWEST POSITION. SAFETY MEASURES IN PLACE. WILL CONTINUE TO MONITOR.
[2018-09-08] VITALS: BP 135/59
[2018-09-08] MEDS ORDERED: PIPERACILLIN /TAZOBACTAM 3.375 G in IV D5W 50 ML IV SCH ×2
[2018-09-08] MEDS: ENOXAPARIN SODIUM 40 MG/0.4 ML DISP.SYRIN SQ SCH ×2 (00:52→21:13)
[2018-09-08] MEDS: IV NS 0.9% 1,000 ML IV PRN ×2 (00:59→20:01)
[2018-09-08 04:00] VITALS: BP_SYST 124; BP_SYST 159; BP_DIAS 67; BP_DIAS 96
[2018-09-08] MEDS ORDERED: PIPERACILLIN /TAZOBACTAM 2.25 G VIAL IV ONE (04:53)
[2018-09-08] MEDS ORDERED: PIPERACILLIN /TAZOBACTAM 2.25 G in IV D5W 50 ML IV ONE (06:00)
[2018-09-08 06:13] LABS: BASOPHILS % (AUTO) 0.3 % (0.0-2.0); EOSINOPHILS % (AUTO) 0.1 % (0.0-6.0); HEMATOCRIT 34 % (39-51); HEMOGLOBIN 11.3 g/dL (13.5-17.5); LYMPHOCYTES # (AUTO) 1.9 /CMM (0.8-4.8); LYMPHOCYTES % (AUTO) 9.9 % (20.0-44.0); MEAN CORPUSCULAR HGB CONC 33 g/dl (31.0-36.0); MEAN CORPUSCULAR VOLUME 89 fL (80-96); MONOCYTES % (AUTO) 10.2 % (2.0-12.0); NEUTROPHILS # (AUTO) 15.4 /CMM (1.8-8.9); NEUTROPHILS % (AUTO) 79.5 % (43.0-81.0); PLATELET COUNT (AUTO) 234 /CMM (150-450); WHITE BLOOD COUNT (AUTO) 19.4 K/uL (4.3-11.0)
[2018-09-08 06:39] LABS: ALANINE AMINOTRANSFERASE 8 U/L (12-78); ALKALINE PHOSPHATASE 60 U/L (46-116); ASPARTATE AMINOTRANSFERASE 7 U/L (15-37); BILIRUBIN,TOTAL 0.5 mg/dL (0.2-1.0); CALCIUM, SERUM 8.4 mg/dL (8.5-10.1); CARBON DIOXIDE 27 mmol/L (21-32); CHLORIDE 104 mmol/L (98-107); CREATININE 1.4 mg/dL (0.6-1.3); GLUCOSE 145 mg/dL (74-106); MAGNESIUM 1.7 mg/dL (1.8-2.4); PHOSPHORUS 3.2 mg/dL (2.5-4.9); SODIUM SERUM 141 mmol/L (136-145); UREA NITROGEN, BLOOD 18 mg/dL (7-18)
--- NOTE | 2018-09-08 07:10 | NUR ---
RN DOCUMENTATION CLOSING NOTES: ZOSYN GIVEN TIMES 1 AT 0500 2.25 GRAMS. PT ON 3 LITERS NASAL CANNUAL SATTING WELL. NS RUNNING AT 75 ML/HR. IV IN TACT. ALERT AND ORIENTED TIMES 1. CAN FOLLOW COMMANDS. PT STABLE. BED IN LOCKED AND LOW POSITION. SAFETY MEASURES IN PLACE. FOURNIER IN TACT. 18 GAUGE LAC. SINUS RYTHM. NO SIGNS OF ACUTE DISTRESS. PT IN BED COMFORTABLY. WILL ENDORSE TO AM NURSE TO MONITER AND FOLLOW PLAN OF CARE.
--- NOTE | 2018-09-08 07:30 | NUR ---
MS RN INITIAL NOTES RECEIVED PT IN BED, A/OX1. ON TELE SR. F/C DRAINING CLOUDY YELLOW URINE. PT ON 3L NC. 18G LAC IV SITE FLUSHING WELL. NO S/SX OF INFILTRATION. BED IN LOCKED/LOWEST POSITION. CALL LIGHT IN REACH. WILL CONT TO MONITOR.
[2018-09-08] MEDS: BLOOD SUGAR DIAGNOSTIC 1 EACH STRIP IN SCH ×4 (07:58→21:24)
[2018-09-08 08:00] VITALS: BP 122/62
[2018-09-08] MEDS: hydrALAZINE HCL 25 MG TABLET PO SCH ×2 (09:00→16:18)
[2018-09-08] MEDS: INSULIN REGULAR, HUMAN 100 UNIT/ML 3 ML VIAL SQ SCH ×2 (09:00→18:20)
[2018-09-08] MEDS ORDERED: ZINC OXIDE TP SCH (09:00)
[2018-09-08] MEDS: AMLODIPINE BESYLATE 10 MG TABLET PO SCH (09:00)
[2018-09-08] MEDS ORDERED: MENTHOL TP SCH (09:00)
--- NOTE | 2018-09-08 09:29 | NUR ---
TELEPHONE STERILIZER NOTES UPDATED PHARMACY WITH CURRENT HUMULIN R DOSE 7 UNITS BID PER MED LIST FROM SNF. SPOKE WITH
[2018-09-08] MEDS: PANTOPRAZOLE 40 MG TABLET.DR PO SCH (09:37)
[2018-09-08] MEDS: ASPIRIN EC 81 MG TABLET.DR PO SCH (09:37)
[2018-09-08] MEDS: risperiDONE 0.25 MG TABLET PO SCH ×3 (09:38→21:13)
[2018-09-08] MEDS: FINASTERIDE (5 MG) 5 MG TABLET PO SCH (09:38)
[2018-09-08] MEDS: METOPROLOL TARTRATE 50 MG TABLET PO SCH ×2 (09:38→16:18)
[2018-09-08] MEDS: FUROSEMIDE 20 MG TABLET PO SCH (09:38)
[2018-09-08] MEDS: BENZTROPINE MESYLATE (1 MG) 1 MG TABLET PO SCH (09:38)
[2018-09-08] MEDS: DULOXETINE HCL 30 MG CAPSULE.DR PO SCH ×2 (09:38→16:18)
[2018-09-08] MEDS: Magnesium 1GM/D5W 100ML PREMIX 100 ML IV SCH ×2 (11:26→17:39)
[2018-09-08] MEDS: POTASSIUM CHLORIDE 20 MEQ TAB.PRT.SR PO SCH ×3 (11:26→15:07)
[2018-09-08] MEDS: PIPERACILLIN /TAZOBACTAM 3.375 G in IV D5W 100 ML IV SCH ×2 (12:22→20:01)
[2018-09-08] MEDS: INSULIN REGULAR, HUMAN 100 UNIT/ML 3 ML VIAL SQ PRN ×2 (12:37→21:27)
[2018-09-08 16:00] VITALS: BP 171/95
[2018-09-08] MEDS ORDERED: DIVA250T4 PO (18:08)
[2018-09-08] MEDS ORDERED: ACET-73 PO (18:09)
[2018-09-08] MEDS: INSULIN GLARGINE, 100 UNIT/ML CARTRIDGE SQ SCH (18:23)
--- NOTE | 2018-09-08 18:44 | NUR ---
MS RN CLOSING NOTES PT RESTING IN BED, ON ROOM AIR. NO S/SX OF DISTRESS NOTED. ALL NEEDS ATTENDED TO. WILL ENDORSE TO PM NURSE FOR REINIER.
--- NOTE | 2018-09-08 19:15 | NUR ---
RN INITIAL NOTES: RECEIVED REPORT FROM DAY RN. PT IN BED, AWAKE, MOSTLY NON VERBAL (BASELINE, CVA LEFT SIDED WEAKNESS), ON RA RESPIRATION EVEN AND UNLABORED. PT APPEARS CALM AND COMFORTABLE, NO FACIAL GRIMACE NOTED. IV ACCESS PATENT AND FLUSHING WELL, INFUSING WITH NS AT 75ML/HR. WITH FOURNIER CATHETER DRAINING INTO YELLOW COLORED URINE. DISCUSSED PLAN OF CARE TO THE PT. BLE OFFLOADED. SAFETY PRECAUTIONS FOR FALL INITIATED, CALL LIGHT IN REACH, WILL CONTINUE MONITORING PT.
[2018-09-08 20:00] VITALS: BP 134/68
[2018-09-08] MEDS: DIVALPROEX SODIUM 250 MG TABLET.DR PO SCH (20:00)
--- NOTE | 2018-09-08 20:00 | NUR ---
RN NOTES: ASPIRATION PROTOCOL INITIATED, DUE MEDS ADMINISTERED. KEPT HIGH FOWLERS BEFORE AND 30 MINS AFTER TAKING MEDS.
[2018-09-08] MEDS: ATORVASTATIN 40 MG TABLET PO SCH (21:12)
[2018-09-08] MEDS: TAMSULOSIN 0.4 MG CAP.SR.24H PO SCH (21:12)
--- NOTE | 2018-09-08 21:27 | NUR ---
BLOOD SUGAR 194: ACCU CHECK RESULT OF 194, 3UNITS OF INSULIN GIVEN PER SLIDING SCALE, [facility]CHO CARDI[facility] DIET, WILL MONITOR FOR ANY S/S OF HYPOGLYCEMIA
--- NOTE | 2018-09-08 23:17 | NUR ---
RN NOTES: RECEIVED CALL FROM [facility], BLOOD CULTURE RESULT IS GRAM POSITIVE COCCI IN CLUSTER, REPORTED BY JOHANNY GRAF. HE STATED LAB RESULT WILL BE POSTED IN THE COMPUTER EMR TOMORROW AM. PT ON ZOSYN 3.375 G IV Q8HR, WILL NOTIFY BLENDER/BRAZE APPLICATOR
--- NOTE | 2018-09-08 23:20 | NUR ---
RN NOTES: NOTIFIED MD MATERIAL HAULER, AWAITING CALL BACK
--- NOTE | 2018-09-08 23:30 | NUR ---
RN NOTES: NO NEW ORDERS RECEIVED FROM MD REGARDING BLOOD CULTURE RESULT
[2018-09-08 23:41] LABS: APPEARANCE,URINE CLEAR (CLEAR); BILIRUBIN,URINE NEGATIVE (NEGATIVE); BLOOD, URINE 1+ Ery/uL (NEGATIVE); COLOR,URINE YELLOW (YELLOW); KETONES,URINE NEGATIVE (NEGATIVE); LEUKOCYTE ESTERASE ,URINE NEGATIVE (NEGATIVE); NITRITE, URINE NEGATIVE (NEGATIVE); PH,URINE 6.5 (5.0-8.0); PROTEIN,URINE 1+ mg/dl (NEGATIVE); UGLUCOSE 2+ mg/dL (NEGATIVE); UROBILINOGEN,URINE 0.2 EU/dL (0.2)
[2018-09-08 23:43] LABS: BACTERIA,URINE None seen /HPF (None Seen); EOSINOPHIL,URINE None Seen; SQUAMOUS EPITHELIAL CELL,UR Few /HPF (None Seen); WBC,URINE 0-2 /HPF (0-3)
[2018-09-08 23:45] LABS: CREATININE, URINE 111.1 MG/DL (30.0-125.0); URINE TOTAL PROTEIN 76.8 mg/dL (0-11.9)
[2018-09-09] MEDS: PIPERACILLIN /TAZOBACTAM 3.375 G in IV D5W 100 ML IV SCH ×2 (03:38→12:14)
[2018-09-09 04:00] VITALS: BP 107/61
[2018-09-09 06:35] LABS: BASOPHILS # (AUTO) 0.1 /CMM (0.0-0.2); BASOPHILS % (AUTO) 0.5 % (0.0-2.0); EOSINOPHILS % (AUTO) 0.5 % (0.0-6.0); HEMATOCRIT 31 % (39-51); HEMOGLOBIN 10.4 g/dL (13.5-17.5); LYMPHOCYTES # (AUTO) 2.2 /CMM (0.8-4.8); LYMPHOCYTES % (AUTO) 13.5 % (20.0-44.0); MEAN CORPUSCULAR HGB CONC 34 g/dl (31.0-36.0); MEAN CORPUSCULAR VOLUME 89 fL (80-96); MONOCYTES # (AUTO) 1.5 /CMM (0.1-1.30); MONOCYTES % (AUTO) 9.5 % (2.0-12.0); NEUTROPHILS # (AUTO) 12.4 /CMM (1.8-8.9); PLATELET COUNT (AUTO) 237 /CMM (150-450); RED BLOOD CELL COUNT(AUTO) 3.49 MIL/uL (4.5-6.0); WHITE BLOOD COUNT (AUTO) 16.3 K/uL (4.3-11.0)
--- NOTE | 2018-09-09 06:38 | NUR ---
118-1 rn closing notes: pt in bed, remains on ra, respiration even and unlabored. no facial grimace noted. appears comfortable. iv access remains patent and flushign well, infusing with ivf as ordered. osorio bag emptied by assembly machine set up mechanic. vs remains stable, needs attended. awaiting nephro and id consult. safety precautions for fall remains engaged, call light in reach, will endorse to day rn for continuity of care.
[2018-09-09 06:53] LABS: ALANINE AMINOTRANSFERASE 8 U/L (12-78); ALBUMIN 1.9 g/dL (3.4-5.0); ALKALINE PHOSPHATASE 60 U/L (46-116); ASPARTATE AMINOTRANSFERASE 6 U/L (15-37); BILIRUBIN,TOTAL 0.5 mg/dL (0.2-1.0); CALCIUM, SERUM 8.7 mg/dL (8.5-10.1); CARBON DIOXIDE 29 mmol/L (21-32); CHLORIDE 103 mmol/L (98-107); CREATININE 1.4 mg/dL (0.6-1.3); GLUCOSE 109 mg/dL (74-106); MAGNESIUM 2.1 mg/dL (1.8-2.4); PHOSPHORUS 2.7 mg/dL (2.5-4.9); POTASSIUM 3.2 mmol/L (3.5-5.1); SODIUM SERUM 139 mmol/L (136-145); UREA NITROGEN, BLOOD 16 mg/dL (7-18)
[2018-09-09 07:30] LABS: CREATINE KINASE, TOTAL 45 U/L (39-308)
[2018-09-09] MEDS: BLOOD SUGAR DIAGNOSTIC 1 EACH STRIP IN SCH ×5 (07:30→21:40)
[2018-09-09] MEDS: PANTOPRAZOLE 40 MG TABLET.DR PO SCH (07:51)
[2018-09-09 08:00] VITALS: BP 122/67
[2018-09-09] MEDS: DULOXETINE HCL 30 MG CAPSULE.DR PO SCH ×3 (08:24→18:37)
[2018-09-09] MEDS: ASPIRIN EC 81 MG TABLET.DR PO SCH (08:25)
[2018-09-09] MEDS: risperiDONE 0.25 MG TABLET PO SCH ×3 (08:25→21:40)
[2018-09-09] MEDS: FINASTERIDE (5 MG) 5 MG TABLET PO SCH (08:25)
[2018-09-09] MEDS: FUROSEMIDE 20 MG TABLET PO SCH (08:25)
[2018-09-09] MEDS: METOPROLOL TARTRATE 50 MG TABLET PO SCH ×2 (08:26→18:07)
[2018-09-09] MEDS: DIVALPROEX SODIUM 250 MG TABLET.DR PO SCH ×3 (08:26→21:40)
[2018-09-09] MEDS: AMLODIPINE BESYLATE 10 MG TABLET PO SCH (08:27)
[2018-09-09] MEDS: BENZTROPINE MESYLATE (1 MG) 1 MG TABLET PO SCH (08:27)
[2018-09-09] MEDS: hydrALAZINE HCL 25 MG TABLET PO SCH ×2 (08:28→18:06)
[2018-09-09] MEDS: INSULIN REGULAR, HUMAN 100 UNIT/ML 3 ML VIAL SQ SCH ×2 (08:31→18:27)
[2018-09-09] MEDS: POTASSIUM CHLORIDE 20 MEQ TAB.PRT.SR PO SCH ×2 (11:38→12:37)
[2018-09-09] MEDS: INSULIN REGULAR, HUMAN 100 UNIT/ML 3 ML VIAL SQ PRN ×2 (12:29→21:47)
[2018-09-09 16:00] VITALS: BP_SYST 132; BP_SYST 137; BP_DIAS 70
[2018-09-09] MEDS ORDERED: MEROPENEM 500 MG in IV NS 0.9% 50 ML IV SCH (17:30)
[2018-09-09] MEDS ORDERED: FEE PK DOSING 1 MIN EA MC ONE (17:39)
[2018-09-09] MEDS: INSULIN GLARGINE, 100 UNIT/ML CARTRIDGE SQ SCH (18:28)
[2018-09-09] MEDS: VANCOMYCIN 1 GM in IV D5W 250 ML IV SCH (18:38)
[2018-09-09] MEDS: HYDROCODONE/APAP 5/325MG 1 EACH TABLET PO PRN (18:44)
--- NOTE | 2018-09-09 19:30 | NUR ---
MS/RN OPENING NOTES PT RECEIVED AWAKE, HOB ELEVATED. NON VERBAL BUT SMILES AND TRACKS. ON ROOM AIR, BREATHING EVEN AND UNLABORED. NO S/S OF SOB OR PAIN AT THIS TIME. FOURNIER IN PLACE AND DRAINING TO GRAVITY. IV TO LAC PATENT AND INTACT CURRENTLY RUNNING ABX. BED IN LOW/LOCKED POSITION WITH CALL LIGHT IN REACH. SIDE RAILS UPX3 AND BED ALARM ON FOR SAFETY. WILL CONTINUE TO MONITOR
[2018-09-09 20:00] VITALS: BP 132/68
[2018-09-09 20:15] VITALS: BP 132/68
[2018-09-09] MEDS: MEROPENEM 1 G in IV NS 0.9% 100 ML IV SCH (21:39)
[2018-09-09] MEDS: TAMSULOSIN 0.4 MG CAP.SR.24H PO SCH (21:40)
[2018-09-09] MEDS: ATORVASTATIN 40 MG TABLET PO SCH (21:40)
[2018-09-09] MEDS: ENOXAPARIN SODIUM 40 MG/0.4 ML DISP.SYRIN SQ SCH (21:41)
--- NOTE | 2018-09-10 | NUR ---
ROUNDING PT ROUNDING PERFORMED. BREATHING EVEN AND UNLABORED. IN NO ACUTE DISTRESS.
[2018-09-10] MEDS: IV NS 0.9% 1,000 ML IV PRN ×2 (01:11→20:42)
--- NOTE | 2018-09-10 02:00 | NUR ---
ROUNDING PT ASLEEP, IN NO ACUTE DISTRESS. BREATHING EVEN AND UNLABORED. REPOSITIONED PATIENT, HEELS OFFLOADED.
[2018-09-10 04:00] VITALS: BP 96/48
--- NOTE | 2018-09-10 04:00 | NUR ---
ROUNDING REPOSITIONED PT, NO NEEDS EXPRESSED, IN NO ACUTE DISTRESS. BREATHING EVEN AND UNLABORED.
--- NOTE | 2018-09-10 06:30 | NUR ---
MS/RN CLOSING NOTES PT ASLEEP, RESPONSIVE TO NAME AND TACTILE STIMULI. ON 3L O2 VIA NC, BREATHING EVEN AND UNLABORED. NO S/S OF SOB OR PAIN AT THIS TIME. NO FACIAL GRIMACING NOTED. IV TO LAC PATENT AND INTACT RUNNING IVF ORDERED. FOURNIER IN PLACE AND DRAINING TO GRAVITY. NO SIGNFICANT CHANGES OVERNIGHT. TURNED/REPOSITIONED Q2H, HEELS OFFLOADED. BED IN LOW/LOCKED POSITION WITH CALL LIGHT IN REACH, SIDE RAILS UPX3 AND BED ALARM ON FOR SAFETY. WILL ENDORSE TO DAY SHIFT RN REINIER.
[2018-09-10 07:08] LABS: BASOPHILS # (AUTO) 0.1 /CMM (0.0-0.2); BASOPHILS % (AUTO) 0.8 % (0.0-2.0); EOSINOPHILS % (AUTO) 2.2 % (0.0-6.0); HEMATOCRIT 30 % (39-51); HEMOGLOBIN 10.1 g/dL (13.5-17.5); LYMPHOCYTES % (AUTO) 16.4 % (20.0-44.0); MEAN CORPUSCULAR HGB CONC 34 g/dl (31.0-36.0); MEAN CORPUSCULAR VOLUME 88 fL (80-96); MONOCYTES # (AUTO) 1.4 /CMM (0.1-1.30); MONOCYTES % (AUTO) 11.3 % (2.0-12.0); NEUTROPHILS # (AUTO) 8.3 /CMM (1.8-8.9); NEUTROPHILS % (AUTO) 69.3 % (43.0-81.0); PLATELET COUNT (AUTO) 254 /CMM (150-450); RED BLOOD CELL COUNT(AUTO) 3.36 MIL/uL (4.5-6.0)
--- NOTE | 2018-09-10 07:19 | NUR ---
RN MS OPENING NOTES RECEIVED BEDSIDE REPORT PT ASLEEP, RESPONSIVE TO NAME AND TACTILE STIMULI. CURRENTLY ON 3L O2 VIA NC ROOM AIR DURING THE DAY NO S/S OF SOB OR PAIN AT THIS TIME. NO FACIAL GRIMACING NOTED. IV TO LAC PATENT AND INTACT RUNNING NS @75 ML/HR . FOURNIER IN PLACE AND DRAINING CLEAR YELLOW URINE SAFETY PRECAUTIONS IN PLACE BED IN LOW/LOCKED POSITION WITH CALL LIGHT IN REACH, SIDE RAILS UPX3 AND BED ALARM ON FOR SAFETY. WILL CONT TO MONITOR ACCORDINGLY
[2018-09-10] MEDS: BLOOD SUGAR DIAGNOSTIC 1 EACH STRIP IN SCH ×4 (07:37→21:52)
[2018-09-10] MEDS: INSULIN REGULAR, HUMAN 100 UNIT/ML 3 ML VIAL SQ PRN ×4 (07:38→21:53)
[2018-09-10 07:47] LABS: ALANINE AMINOTRANSFERASE 12 U/L (12-78); ALBUMIN 1.8 g/dL (3.4-5.0); ALKALINE PHOSPHATASE 55 U/L (46-116); ASPARTATE AMINOTRANSFERASE 12 U/L (15-37); BILIRUBIN,TOTAL 0.4 mg/dL (0.2-1.0); CALCIUM, SERUM 8.7 mg/dL (8.5-10.1); CARBON DIOXIDE 28 mmol/L (21-32); CHLORIDE 103 mmol/L (98-107); CREATININE 1.3 mg/dL (0.6-1.3); GLUCOSE 88 mg/dL (74-106); MAGNESIUM 1.9 mg/dL (1.8-2.4); PHOSPHORUS 3.5 mg/dL (2.5-4.9); POTASSIUM 3.4 mmol/L (3.5-5.1); SODIUM SERUM 139 mmol/L (136-145); TOTAL PROTEIN, SERUM 5.8 g/dL (6.4-8.2); UREA NITROGEN, BLOOD 15 mg/dL (7-18)
[2018-09-10 08:00] VITALS: BP 105/51
[2018-09-10] MEDS: DIVALPROEX SODIUM 250 MG TABLET.DR PO SCH ×3 (08:57→21:44)
[2018-09-10] MEDS: ASPIRIN EC 81 MG TABLET.DR PO SCH (08:57)
[2018-09-10] MEDS: PANTOPRAZOLE 40 MG TABLET.DR PO SCH (08:57)
[2018-09-10] MEDS: DULOXETINE HCL 30 MG CAPSULE.DR PO SCH ×2 (08:57→17:21)
[2018-09-10] MEDS: FUROSEMIDE 20 MG TABLET PO SCH (08:57)
[2018-09-10] MEDS: FINASTERIDE (5 MG) 5 MG TABLET PO SCH (08:57)
[2018-09-10] MEDS: risperiDONE 0.25 MG TABLET PO SCH ×3 (08:57→21:45)
[2018-09-10] MEDS: BENZTROPINE MESYLATE (1 MG) 1 MG TABLET PO SCH (08:58)
[2018-09-10] MEDS: hydrALAZINE HCL 25 MG TABLET PO SCH ×2 (08:58→17:21)
[2018-09-10] MEDS: AMLODIPINE BESYLATE 10 MG TABLET PO SCH (08:59)
[2018-09-10] MEDS: METOPROLOL TARTRATE 50 MG TABLET PO SCH ×2 (08:59→17:22)
[2018-09-10] MEDS: MEROPENEM 1 G in IV NS 0.9% 100 ML IV SCH ×2 (09:05→20:44)
[2018-09-10] MEDS: INSULIN REGULAR, HUMAN 100 UNIT/ML 3 ML VIAL SQ SCH ×2 (09:55→17:00)
[2018-09-10] MEDS ORDERED: POTASSIUM CHLORIDE 20 MEQ TAB.PRT.SR PO SCH (10:00)
[2018-09-10] MEDS: VANCOMYCIN 1 GM in IV D5W 250 ML IV SCH (12:19)
[2018-09-10 16:00] VITALS: BP 127/53
[2018-09-10] MEDS: LACTOBACILLUS RHAMNOSUS GG 1 EACH CAP.SPRINK PO SCH (17:21)
[2018-09-10] MEDS: INSULIN GLARGINE, 100 UNIT/ML CARTRIDGE SQ SCH (17:28)
--- NOTE | 2018-09-10 18:50 | NUR ---
RN MS NOTES NO SIGNIFICANT CHANGED THROUGHOUT THE SHIFT PATIENT RESPONSIVE TO NAME AND TACTILE STIMULI. CURRENTLY ON ROOM AIR NO S/S OF SOB OR PAIN AT THIS TIME. NO FACIAL GRIMACING NOTED. IV TO LAC PATENT AND INTACT RUNNING NS @75 ML/HR . FOURNIER IN PLACE AND DRAINING CLEAR YELLOW URINE. APPETITE GOOD NO NAUSEA VOMITING OR DIARRHEA NOTED. NO EPISODES OF HYPER/HYPOGLYCEMIA SAFETY PRECAUTIONS IN PLACE BED IN LOW/LOCKED POSITION WITH CALL LIGHT IN REACH, SIDE RAILS UPX3 AND BED ALARM ON FOR SAFETY.
--- NOTE | 2018-09-10 19:13 | NUR ---
REPORT ENDORSED TO NOC
--- NOTE | 2018-09-10 19:30 | NUR ---
MS RN NOTE: RECEIVED PT ON BED AWAKE, ABLE TO ANSWER YES OR NO QUESTIONS. NO ACUTE DISTRESS NOTED. NO COMPLAINTS OF PAIN OR DISCOMFORT AT THIS TIME. ON ROOM AIR, BREATHING EVEN AND UNLABORED WITH NORMAL RESPIRATIONS. IV ON LEFT ANTECUBITAL #18 INTACT AND PATENT, IVF INFUSING WELL. FOURNIER CATH INTACT AND PATENT, DRAINING WELL. KEPT CLEAN, DRY AND COMFORTABLE. SAFETY AND FALL PRECAUTIONS OBSERVED AND MAINTAINED. WILL CONTINUE TO MONITOR PT.
[2018-09-10 20:00] VITALS: BP 131/60
[2018-09-10] MEDS: ATORVASTATIN 40 MG TABLET PO SCH (21:44)
[2018-09-10] MEDS: TAMSULOSIN 0.4 MG CAP.SR.24H PO SCH (21:45)
[2018-09-10] MEDS: ENOXAPARIN SODIUM 40 MG/0.4 ML DISP.SYRIN SQ SCH (21:45)
[2018-09-11 04:00] VITALS: BP 147/65
[2018-09-11 06:30] LABS: BASOPHILS # (AUTO) 0.1 /CMM (0.0-0.2); BASOPHILS % (AUTO) 0.8 % (0.0-2.0); EOSINOPHILS % (AUTO) 1.4 % (0.0-6.0); HEMATOCRIT 31 % (39-51); HEMOGLOBIN 10.5 g/dL (13.5-17.5); LYMPHOCYTES # (AUTO) 1.3 /CMM (0.8-4.8); LYMPHOCYTES % (AUTO) 14.9 % (20.0-44.0); MEAN CORPUSCULAR HGB CONC 34 g/dl (31.0-36.0); MEAN CORPUSCULAR VOLUME 88 fL (80-96); MONOCYTES # (AUTO) 1.1 /CMM (0.1-1.30); MONOCYTES % (AUTO) 12.4 % (2.0-12.0); NEUTROPHILS # (AUTO) 6.2 /CMM (1.8-8.9); NEUTROPHILS % (AUTO) 70.5 % (43.0-81.0); PLATELET COUNT (AUTO) 288 /CMM (150-450); RED BLOOD CELL COUNT(AUTO) 3.53 MIL/uL (4.5-6.0); WHITE BLOOD COUNT (AUTO) 8.9 K/uL (4.3-11.0)
--- NOTE | 2018-09-11 06:33 | NUR ---
MS RN NOTE: NO CHANGES NOTED THROUGHOUT THE SHIFT. NO APPARENT DISTRESS NOTED. NO FACIAL GRIMACING OR ANY SIGNS OF PAIN NOTED. ON ROOM AIR, NO SOB NOTED. IV ON LEFT ANTECUBITAL #18 INTACT AND PATENT, IVF INFUSING WELL. FOURNIER CATH INTACT, DRAINED 450ML OF URINE OUTPUT. KEPT CLEAN, DRY AND COMFORTABLE. SAFETY AND FALL PRECAUTIONS OBSERVED AND MAINTAINED. WILL ENDORSE TO DAY SHIFT RN FOR CONTINUITY OF CARE.
[2018-09-11 06:47] LABS: CALCIUM, SERUM 8.3 mg/dL (8.5-10.1); CARBON DIOXIDE 29 mmol/L (21-32); CHLORIDE 104 mmol/L (98-107); CREATININE 1.1 mg/dL (0.6-1.3); GLUCOSE 143 mg/dL (74-106); POTASSIUM 3.3 mmol/L (3.5-5.1); SODIUM SERUM 140 mmol/L (136-145); UREA NITROGEN, BLOOD 15 mg/dL (7-18)
--- NOTE | 2018-09-11 07:03 | NUR ---
MS RN NOTE: VANCOMYCIN DUE AT 0600 NOT GIVEN YET BECAUSE VANCO TROUGH RESULT STILL PENDING. FOLLOWED UP RESULT, PER LAB THEY'RE STILL RUNNING IT. WILL ENDORSE TO DAY SHIFT RN
[2018-09-11 07:07] LABS: *SPE A/G RATIO 0.6 (0.7-1.7); *SPE ALPHA-1-GLOBULIN 0.4 g/dL (0.0-0.4); *SPE ALPHA-2-GLOBULIN 0.7 g/dL (0.4-1.0); *SPE BETA GLOBULIN 0.9 g/dL (0.7-1.3); *SPE GLOBULIN, TOTAL 3.2 g/dL (2.2-3.9); *SPE M-SPIKE Not Observed g/dL (Not Observed); *SPEGAMMA GLOBULIN 1.2 g/dL (0.4-1.8)
[2018-09-11] MEDS: VANCOMYCIN 1 GM in IV D5W 250 ML IV SCH (07:25)
[2018-09-11] MEDS: BLOOD SUGAR DIAGNOSTIC 1 EACH STRIP IN SCH ×2 (07:25→12:18)
[2018-09-11] MEDS: PANTOPRAZOLE 40 MG TABLET.DR PO SCH (07:27)
[2018-09-11 08:00] VITALS: BP_SYST 133; BP_SYST 136; BP_DIAS 66
[2018-09-11] MEDS: BENZTROPINE MESYLATE (1 MG) 1 MG TABLET PO SCH (10:13)
[2018-09-11] MEDS: LACTOBACILLUS RHAMNOSUS GG 1 EACH CAP.SPRINK PO SCH (10:13)
[2018-09-11] MEDS: ASPIRIN EC 81 MG TABLET.DR PO SCH (10:14)
[2018-09-11] MEDS: METOPROLOL TARTRATE 50 MG TABLET PO SCH (10:14)
[2018-09-11] MEDS: AMLODIPINE BESYLATE 10 MG TABLET PO SCH (10:14)
[2018-09-11] MEDS: DIVALPROEX SODIUM 250 MG TABLET.DR PO SCH ×2 (10:14→12:19)
[2018-09-11] MEDS: risperiDONE 0.25 MG TABLET PO SCH (10:15)
[2018-09-11] MEDS: DULOXETINE HCL 30 MG CAPSULE.DR PO SCH (10:15)
[2018-09-11 10:18] VITALS: BP 136/66
[2018-09-11] MEDS: hydrALAZINE HCL 25 MG TABLET PO SCH (10:18)
[2018-09-11] MEDS: FUROSEMIDE 20 MG TABLET PO SCH (10:18)
[2018-09-11] MEDS: FINASTERIDE (5 MG) 5 MG TABLET PO SCH (10:18)
[2018-09-11] MEDS: MEROPENEM 1 G in IV NS 0.9% 100 ML IV SCH (10:19)
[2018-09-11] MEDS: INSULIN REGULAR, HUMAN 100 UNIT/ML 3 ML VIAL SQ SCH (10:24)
[2018-09-11] MEDS: IV NS 0.9% 1,000 ML IV PRN (11:50)
[2018-09-11] MEDS ORDERED: POTASSIUM CHLORIDE 20 MEQ TAB.PRT.SR PO SCH (12:00)
[2018-09-11] MEDS: HYDROCODONE/APAP 5/325MG 1 EACH TABLET PO PRN (12:18)
[2018-09-11] MEDS: INSULIN REGULAR, HUMAN 100 UNIT/ML 3 ML VIAL SQ PRN (12:48)
[2018-09-11] MEDS ORDERED: MERO1VIA IV (13:29)
--- NOTE | 2018-09-11 13:30 | NUR ---
RN CLOSING NOTE PATIENT [facility]. REPORT CALLED IN TO SAMMY. PICTURES TAKEN. PAPERWORK COMPLETED. SON PAT CALLED AND NOTIFIED. OBTAINED MIDLINE PRIOR TO DISCHARGE FOR CONTINUATION OF ANTIBIOTIC ADMINISTRATION.
[2018-09-11 14:13] LABS: PTH, INTACT 23 pg/mL (15-65)
[2018-09-11] MEDS ORDERED: MEROPENEM 1 G in IV NS 0.9% 100 ML IV SCH (18:00)
== END 2018-09-11 15:36 | DRG 871 ==
LOC: ER 19:58 → TELE1 22:46 → MEDSG1 09-08 09:49
PROVIDERS: ADMIT Nurse Practitioner Acute Care; ATTEND Nurse Practitioner Acute Care
PROC: 5A1D70Z Performance of Urinary Filtration, Intermittent, Less than 6 Hours Per Day (ICD-10-PCS; 2018-09-10)
PROC: 05H633Z Insertion of Infusion Device into Left Subclavian Vein, Percutaneous Approach (ICD-10-PCS; principal; 2018-09-11)
DX: A41.1 Sepsis due to other specified staphylococcus (principal); N17.0 Acute kidney failure with tubular necrosis; G92 Toxic encephalopathy; N39.0 Urinary tract infection, site not specified; E44.0 Moderate protein-calorie malnutrition; E87.2 Acidosis; R64 Cachexia; R65.20 Severe sepsis without septic shock; F03.90 Unspecified dementia, unspecified severity, without behavioral disturbance, psychotic disturbance, mood disturbance, and anxiety; N40.0 Benign prostatic hyperplasia without lower urinary tract symptoms; F90.9 Attention-deficit hyperactivity disorder, unspecified type; Z79.4 Long term (current) use of insulin; Z79.899 Other long term (current) drug therapy; B96.89 Other specified bacterial agents as the cause of diseases classified elsewhere; E86.0 Dehydration; N40.1 Benign prostatic hyperplasia with lower urinary tract symptoms; R33.8 Other retention of urine; I25.10 Atherosclerotic heart disease of native coronary artery without angina pectoris; M62.84 Sarcopenia; Z86.73 Personal history of transient ischemic attack (TIA), and cerebral infarction without residual deficits; E78.5 Hyperlipidemia, unspecified; I13.10 Hypertensive heart and chronic kidney disease without heart failure, with stage 1 through stage 4 chronic kidney disease, or unspecified chronic kidney disease; N18.9 Chronic kidney disease, unspecified; Z79.82 Long term (current) use of aspirin; D63.8 Anemia in other chronic diseases classified elsewhere; E11.22 Type 2 diabetes mellitus with diabetic chronic kidney disease; Z87.81 Personal history of (healed) traumatic fracture
CPT/HCPCS: 36415; 71045-TC; 80048-TC; 80053-TC; 80076-TC; 80202-TC; 81000-TC; 82550-TC; 82570-TC; 82962-TC; 83605-TC; 83735-TC; 83880; 83970; 84100-TC; 84155; 84155-TC; 84165; 84300-TC; 84484-TC; 85025-TC; 85730-TC; 87040-TC; 87081-TC; 87086-TC; 87186-TC; 97112-TC; 97530-TC; A4216; G0378; J1650; J1815; J2185; J2543; J3370; J3475; J7030; J7060

== ENCOUNTER 2018-09-21 18:31 | Inpatient (IN) | payer MEDICARE, BC ==
[~2018-09-21] VITALS: Ht 165.1 cm; Wt 84.0 kg
[~2018-09-21 18:31] MED LIST changes: +ACET-73 PO; +DIVA250T4 PO; +MERO1VIA IV; -TYL2T MC
--- NOTE | 2018-09-21 18:50 | NUR ---
BIB [facility] SNF C/O MORE ALTERED THEN NORMAL PER STAFF. PATIENT A/OXO, NON-VERBAL. BREATHING EVEN AND UNLABORED, NO SOB NOTED. PLACED ON THE MONITOR. FOURNIER CATHETER PATENT AND DRAINING WITH YELLOW CLOUDY URINE. WILL CONTINUE TO MONITOR.
[2018-09-21 18:52] LABS: BASOPHILS # (AUTO) 0.1 /CMM (0.0-0.2); BASOPHILS % (AUTO) 0.4 % (0.0-2.0); EOSINOPHILS % (AUTO) 0.1 % (0.0-6.0); HEMATOCRIT 39 % (39-51); HEMOGLOBIN 12.7 g/dL (13.5-17.5); LYMPHOCYTES # (AUTO) 1.4 /CMM (0.8-4.8); LYMPHOCYTES % (AUTO) 6.3 % (20.0-44.0); MEAN CORPUSCULAR HGB CONC 33 g/dl (31.0-36.0); MEAN CORPUSCULAR VOLUME 91 fL (80-96); MONOCYTES # (AUTO) 0.9 /CMM (0.1-1.30); MONOCYTES % (AUTO) 4.2 % (2.0-12.0); NEUTROPHILS # (AUTO) 19.3 /CMM (1.8-8.9); PLATELET COUNT (AUTO) 395 /CMM (150-450); RED BLOOD CELL COUNT(AUTO) 4.32 MIL/uL (4.5-6.0); WHITE BLOOD COUNT (AUTO) 21.8 K/uL (4.3-11.0)
[2018-09-21 19:09] LABS: ALANINE AMINOTRANSFERASE 33 U/L (12-78); ALBUMIN 2.5 g/dL (3.4-5.0); ALKALINE PHOSPHATASE 66 U/L (46-116); ASPARTATE AMINOTRANSFERASE 20 U/L (15-37); BILIRUBIN,DIRECT 0.1 mg/dL (0.0-0.2); BILIRUBIN,TOTAL 0.6 mg/dL (0.2-1.0); CALCIUM, SERUM 9.6 mg/dL (8.5-10.1); CARBON DIOXIDE 29 mmol/L (21-32); CHLORIDE 109 mmol/L (98-107); CREATININE 2.3 mg/dL (0.6-1.3); GLUCOSE 259 mg/dL (74-106); SODIUM SERUM 147 mmol/L (136-145); TOTAL PROTEIN, SERUM 7.1 g/dL (6.4-8.2); UREA NITROGEN, BLOOD 54 mg/dL (7-18)
[2018-09-21 19:10] LABS: POTASSIUM 2.8 mmol/L (3.5-5.1)
[2018-09-21] MEDS ORDERED: INSU100V3 SQ (19:11)
[2018-09-21] MEDS ORDERED: BLOO-668 IN (19:11)
[2018-09-21] MEDS ORDERED: MAGN400O6 PO (19:11)
[2018-09-21] MEDS ORDERED: DOCU-141 PO (19:11)
[2018-09-21] MEDS ORDERED: NA P133E RC (19:11)
[2018-09-21] MEDS ORDERED: BISA10SU8 RC (19:11)
[2018-09-21] MEDS ORDERED: IMIPENEM/CILASTATIN 500 MG in IV NS 0.9% 100 ML IV STA (19:23)
[2018-09-21] MEDS ORDERED: IV NS 0.9% 1,000 ML BAG IV ONE (19:30)
[2018-09-21] MEDS: POTASSIUM CL. PREMIX PERIPHER. 50 ML IV SCH ×4 (19:30→23:54)
[2018-09-21] MEDS ORDERED: VANCOMYCIN 1 GM in IV D5W 250 ML IV ONE (19:30)
[2018-09-21 19:33] LABS: BILIRUBIN,URINE Negative (NEGATIVE); BLOOD, URINE Trace-intact Ery/uL (NEGATIVE); COLOR,URINE Yellow (YELLOW); KETONES,URINE Negative (NEGATIVE); LEUKOCYTE ESTERASE ,URINE Small (NEGATIVE); NITRITE, URINE Negative (NEGATIVE); PH,URINE 5.5 (5.0-8.0); PROTEIN,URINE 30 mg/dl (NEGATIVE); UGLUCOSE Negative (NEGATIVE); UROBILINOGEN,URINE 0.2 EU/dL (0.2)
[2018-09-21 19:34] LABS: APPEARANCE,URINE HAZY (CLEAR)
[2018-09-21] MEDS ORDERED: POTASSIUM CL. PREMIX PERIPHER. 50 ML ONE ×2 (19:34→20:57)
[2018-09-21 19:35] LABS: BACTERIA,URINE Moderate /HPF (None Seen); SQUAMOUS EPITHELIAL CELL,UR Few /HPF (None Seen); YEAST,URINE Many /HPF (None Seen)
--- NOTE | 2018-09-21 19:36 | NUR ---
ENDORSED TO NIKI CHOUDHURY FOR REINIER.
--- NOTE | 2018-09-21 20:23 | NUR ---
LACTIC 4.0. MD AWARE.
[2018-09-21] MEDS ORDERED: ZOLPIDEM TARTRATE 5 MG TABLET PO PRN (20:30)
[2018-09-21] MEDS ORDERED: ONDANSETRON HCL/PF 4 MG/2 ML VIAL IVP PRN (20:30)
[2018-09-21] MEDS ORDERED: Z GUARD REMEDY 2 OZ OINT TP PRN (20:30)
[2018-09-21] MEDS ORDERED: MAGNESIUM HYDROXIDE 30 ML UDC PO PRN (20:30)
[2018-09-21] MEDS ORDERED: MEROPENEM 500 MG in IV NS 0.9% 50 ML IV ONE (20:30)
[2018-09-21] MEDS ORDERED: MAG HYDROX/AL HYDROX/SIMETH 30 ML UDC PO PRN (20:30)
[2018-09-21] MEDS ORDERED: ACETAMINOPHEN 325 MG TABLET PO PRN (20:30)
[2018-09-21] MEDS ORDERED: HYDROCODONE/APAP 5/325MG 1 EACH TABLET PO PRN (20:30)
[2018-09-21] MEDS ORDERED: DEXTROSE 50%-WATER 50 ML DISP.SYRIN IV PRN (21:00)
[2018-09-21] MEDS ORDERED: IMIPENEM/CILASTATIN 500 MG in IV NS 0.9% 100 ML IV SCH (21:00)
[2018-09-21] MEDS ORDERED: MEROPENEM 500 MG in IV NS 0.9% 50 ML IV SCH (21:00)
--- NOTE | 2018-09-21 21:05 | NUR ---
REPORT GIVEN TO MACEY FLOWERS FOR REINIER
[2018-09-21 22:00] VITALS: BP 118/65
[2018-09-21 22:04] VITALS: BP 118/65
[2018-09-21] MEDS: IV NS 0.9% 1,000 ML IV PRN (22:14)
--- NOTE | 2018-09-21 22:16 | NUR ---
MERREM 500MG 2 X 10MEQ KCL ENDORSED TO FLOOR NURSE
[2018-09-21] MEDS: BLOOD SUGAR DIAGNOSTIC 1 EACH STRIP IN SCH (23:54)
[2018-09-21] MEDS: INSULIN REGULAR, HUMAN 100 UNIT/ML 3 ML VIAL SQ PRN (23:54)
--- NOTE | 2018-09-21 23:55 | NUR ---
S/b dr. mirza relayed recent lactic acid trending down no new orders at this time noted and carried out.
[2018-09-22] VITALS: BP 120/63
--- NOTE | 2018-09-22 | NUR ---
Recieve pt from ER services at 09/20/182203 via [email or web address] admit to tele on cardiac monitoring SR 82. pt a/o x 1 with no significant distress, respirations even and unlabored head to toe assessment is done, no N. V, D. kept clean, dry and comfortable, safety measures at all times. will cont to mtr. Addendum: 09/22/18 at 0301 by KRISTIE GONZALEZ RN correction: receive pt at 09/21/18 not 09/20
[2018-09-22 04:00] VITALS: BP 116/71
[2018-09-22] MEDS: BLOOD SUGAR DIAGNOSTIC 1 EACH STRIP IN SCH ×4 (05:11→23:51)
[2018-09-22] MEDS: INSULIN REGULAR, HUMAN 100 UNIT/ML 3 ML VIAL SQ PRN ×3 (05:15→23:52)
--- NOTE | 2018-09-22 05:17 | NUR ---
Blood sugar 145 mg/dl non admin of insulin 2 units sliding coverage pt NPO receiving NS at 75 ml/hr at this time and per Hospitalist Dr. mirza
--- NOTE | 2018-09-22 06:20 | NUR ---
SPOKE TO KRISTIE LECHUGA PER DAUGHTER DPOA WISHES FULL CODE TO HAWK LECHUGA FATHER
--- NOTE | 2018-09-22 06:30 | NUR ---
INTERNATIONAL STUDENT ADVISOR ASLEEP AND EASILY AWAKEN, TOLERATING ROOM AIR 98%. ON CARDIAC MONITORING SR 81'S. RESPIRATION EVEN AND UNLABORED, KEPT CLEAN AND DRY AND COMFORTABLE. NEEDS ATTENDED AND ANTICIPATED, NURSING CARE RENDERED, OFFLOAD HEELS AND ELBOWS AT ALL TIMES. REPOSITION EVERY 2 HOURS. TREATMENT ORDERED, GOOD SKIN CARE PROVIDED. SAFETY MEASURES AT ALL TIMES. ENDORSE TO THE NEXT SHIFT.
[2018-09-22] MEDS ORDERED: PANTOPRAZOLE 40 MG TABLET.DR PO SCH (07:30)
[2018-09-22 07:32] LABS: BASOPHILS % (AUTO) 0.2 % (0.0-2.0); EOSINOPHILS % (AUTO) 0.2 % (0.0-6.0); HEMATOCRIT 34 % (39-51); LYMPHOCYTES # (AUTO) 1.7 /CMM (0.8-4.8); LYMPHOCYTES % (AUTO) 6.9 % (20.0-44.0); MEAN CORPUSCULAR HGB CONC 33 g/dl (31.0-36.0); MEAN CORPUSCULAR VOLUME 90 fL (80-96); MONOCYTES # (AUTO) 0.8 /CMM (0.1-1.30); MONOCYTES % (AUTO) 3.1 % (2.0-12.0); NEUTROPHILS # (AUTO) 21.7 /CMM (1.8-8.9); NEUTROPHILS % (AUTO) 89.6 % (43.0-81.0); PLATELET COUNT (AUTO) 326 /CMM (150-450); RED BLOOD CELL COUNT(AUTO) 3.72 MIL/uL (4.5-6.0); WHITE BLOOD COUNT (AUTO) 24.2 K/uL (4.3-11.0)
--- NOTE | 2018-09-22 07:51 | NUR ---
RESTAURANT FRONT MANAGER OPENING NOTES PATIENT RESTING IN BED, AWAKE AND FOLLOWS WITH EYES. PATIENT ON ROOM AIR. PATIENT BREATHING EVEN AND UNLABORED. PATIENT IN NO ACUTE DISTRESS. PATIENT ON CARDIAC MONITORING. FOURNIER CATHETER HANGING TO GRAVITY. PATIENT BED LOCKED AND IN LOW POSITION. BED ALARM ON. PATIENT CALL LIGHT WITHIN REACH. WILL CONTINUE TO MONITOR.
[2018-09-22 08:00] VITALS: BP 113/57
[2018-09-22 08:01] LABS: CALCIUM, SERUM 8.6 mg/dL (8.5-10.1); CARBON DIOXIDE 26 mmol/L (21-32); CHLORIDE 113 mmol/L (98-107); CREATININE 1.4 mg/dL (0.6-1.3); GLUCOSE 188 mg/dL (74-106); MAGNESIUM 2.1 mg/dL (1.8-2.4); PHOSPHORUS 3.3 mg/dL (2.5-4.9); POTASSIUM 3.2 mmol/L (3.5-5.1); SODIUM SERUM 150 mmol/L (136-145); UREA NITROGEN, BLOOD 48 mg/dL (7-18)
[2018-09-22 08:07] LABS: THYROID STIMULATING HORMONE 0.612 uIU/mL (0.358-3.74)
[2018-09-22] MEDS: MEROPENEM 1 G in IV NS 0.9% 100 ML IV SCH ×2 (09:24→21:23)
[2018-09-22] MEDS: FAMOTIDINE/PF INJ 20 MG/2 ML VIAL IV SCH ×2 (09:34→16:37)
[2018-09-22] MEDS ORDERED: FEE PK DOSING 1 MIN EA MC ONE (10:27)
[2018-09-22] MEDS: POTASSIUM CL. PREMIX PERIPHER. 50 ML IV SCH ×4 (10:43→16:38)
[2018-09-22 12:00] VITALS: BP 110/60
--- NOTE | 2018-09-22 12:15 | NUR ---
PATIENT SEEN AND EXAMINED BY DR. GOLDSTEIN. NO NEW ORDERS AT THIS TIME. WILL CONTINUE TO MONITOR.
--- NOTE | 2018-09-22 13:30 | NUR ---
AQUATIC FACILITY MANAGER NOTES PATIENT NOTED WITH 5 X 1 X 0.1cm EXCORIATION ON SACRAL AREA, NO BLEEDING NOTED. LISET GOLDSTEIN DNP MADE AWARE, NO NEW ORDERS AT THIS TIME, CONTINUE SKIN MANAGEMENT INDICATED. CLEANSED SITE WITH NS, PATTED DRY, COVERED SITE WITH MEPILEX. PATIENT TOLERATED WOUND. NO C/O PAIN OR DISCOMFORT PRIOR, DURING, AFTER WOUND TX. SITE KEPT CLEAN AND DRY, ASSISTED PATIENT TO A COMFORTABLE POSITION. WILL CONTINUE TO MONITOR
[2018-09-22] MEDS: IV NS 0.9% 1,000 ML IV PRN (15:13)
[2018-09-22 16:00] VITALS: BP 158/78
--- NOTE | 2018-09-22 17:11 | NUR ---
MS RN NOTES SEEN BY LISET GOLDSTEIN AT BEDSIDE. NURSING SWALLOW SCREEN DONE, PATIENT ABLE TO SWALLOW APPLE SAUCE WITHOUT COUGHING. ABLE TO FOLLOW SIMPLE INSTRUCTIONS. ABLE TO SWALLOW SPOONFUL OF WATER WITHOUT DIFFICULTY X 5. HAD PATIENT DRINK 60CC WATER BUT PATIENT COUGHED. LISET GOLDSTEIN AWARE AND OK TO START PUREED DIET WITH HONEY THICKENED LIQUIDS. ORDER NOTED AND CARRIED OUT. PATIENT MADE AWARE AND NODDED. TO ASSIST PATIENT WITH MEALS. WILL CONTINUE TO MONITOR
--- NOTE | 2018-09-22 18:30 | NUR ---
BUTT PRESSER NOTES AWAITING IV DIFLUCAN. PHARMACY MADE AWARE, VERBALIZED THEY WILL DELIVER MEDICATION. WILL ENDORSE TO INCOMING SHIFT FOR ADMINISTRATION.
--- NOTE | 2018-09-22 18:39 | NUR ---
DRUG SAFETY ASSISTANT NOTES PATIENT RESTING INSIDE ROOM. SLEEPING, EASILY AROUSABLE THROUGH VERBAL AND TACTILE STIMULI. BREATHING EVEN AND UNLABORED. NO ACUTE DISTRESS. DENIES ANY PAIN OR DISCOMFORT. IV INTACT AND PATENT. CONTINUE ON TELEMETRY, RETINAL SURGEON IN PLACE, SR 83 BPM. PATIENT KEPT CLEAN DRY AND COMFORTABLE. ASSISTED TO A COMFORTABLE POSITION Q2 WITH POSITIONING PILLOWS FOR CIRCULATION AND COMFORT. WILL ENDORSE TO INCOMING SHIFT FOR REINIER. BED LOCKED AND IN LOW POSITION. BILATERAL UPPER SIDE RAILS UP AND LOCKED. CALL LIGHT WITHIN EASY REACH
--- NOTE | 2018-09-22 19:50 | NUR ---
rn initial notes: received report from laura crawford. pt in bed, awake,eyes able to follow movement, on sinus rhythm hr 91, on 2l oxygen via nc, spo2 88%, increase oxygen to 5L now spo2 94%, connected to continuous pulse oximetry at this time. osorio catheter in placed, draining into yellow colored urine. pt has 3iv access all patent and flushing well, one iv access receiving ns at 75ml/hr. ble offloaded. safety precautions for fall initiated, call light in reach, will continue monitoring pt.
[2018-09-22 20:00] VITALS: BP 124/67
[2018-09-22] MEDS: FLUCONAZOLE IN NS 100 MG in PREMIX 1 EA IV SCH ×2 (20:13)
--- NOTE | 2018-09-22 20:14 | NUR ---
RN NOTES: LATE ADMIN OF DIFLUCAN, DAY ZACHARIAH UNAVAILABLE TO ADMIN THE MEDICATION AT SCHEDULE TIME
[2018-09-22] MEDS: VANCOMYCIN 1 GM in IV D5W 250 ML IV SCH (20:18)
--- NOTE | 2018-09-22 21:00 | NUR ---
rn notes: placed on isolation esbl urine
--- NOTE | 2018-09-22 23:53 | NUR ---
accu check 275: blood sugar check 275 9units of insulin given per sliding scale, will continue to monitor for any s/s of hypoglycemia
[2018-09-23] VITALS (7 sets, daily range): BP systolic 104–149; BP diastolic 55–96
[2018-09-23] MEDS: IV NS 0.9% 1,000 ML IV PRN (03:10)
[2018-09-23] MEDS: BLOOD SUGAR DIAGNOSTIC 1 EACH STRIP IN SCH ×4 (05:11→23:14)
[2018-09-23] MEDS: INSULIN REGULAR, HUMAN 100 UNIT/ML 3 ML VIAL SQ PRN ×4 (05:13→23:15)
--- NOTE | 2018-09-23 05:14 | NUR ---
accu check 177: blood sugar check result 177, 3units of insulin given per sliding scale
--- NOTE | 2018-09-23 06:42 | NUR ---
rn closing notes: pt in bed, sleeping, appears calm and comfortable. iv access remains patent and flushing well, infusing with ns at 75ml/hr. ble offloaded. remains sinus rhythm hr 80. osorio catheter remains in placed. vs remains stable, needs attended. remains on isolation esbl urine, ppe utilized. safety precautions for fall remains engaged, call light in reach, will endorse to day rn for continuity of care.
[2018-09-23 07:02] LABS: CALCIUM, SERUM 8.6 mg/dL (8.5-10.1); CARBON DIOXIDE 29 mmol/L (21-32); CHLORIDE 116 mmol/L (98-107); CREATININE 1.3 mg/dL (0.6-1.3); GLUCOSE 181 mg/dL (74-106); POTASSIUM 3.5 mmol/L (3.5-5.1); SODIUM SERUM 151 mmol/L (136-145); UREA NITROGEN, BLOOD 35 mg/dL (7-18)
--- NOTE | 2018-09-23 07:35 | NUR ---
ELECTRICAL CONTROLS ASSEMBLER OPENING NOTE RECEIVED PT IN BED, RESTING WITH EYES CLOSED. PT IS ALERT AND ORIENTED X1, EYES OPEN SPONTANEOUSLY TO VERBAL AND TACTILE STIMULI. NO ACUTE DISTRESS NOTED, BREATHING IS EVEN AND UNLABORED ON ROOM AIR. PT ON MANAGER FLOOR AND IS SINUS RHYTHM WITH 1ST DEGREE AV BLOCK HR 63. PT HAS RIGHT AC #20G THAT IS INFUSING NS @ 75ML/HR WITHOUT REDNESS OR SWELLING AND RIGHT FA #18G AND L AC #20G IVS THAT ARE SALINE LOCKED WITHOUT REDNESS OR SWELLING. ASPIRATION PRECAUTIONS MAINTAINED. ALL NEEDS ATTENDED TO. BED IS LOCKED AND IN LOWEST POSITION, SIDE RAILS UP X3, BED ALARM ON, CALL LIGHT AND POSSESSIONS WITHIN REACH.
[2018-09-23] MEDS: MEROPENEM 1 G in IV NS 0.9% 100 ML IV SCH ×2 (08:37→20:51)
[2018-09-23] MEDS: FAMOTIDINE/PF INJ 20 MG/2 ML VIAL IV SCH ×2 (08:37→17:20)
--- NOTE | 2018-09-23 08:40 | NUR ---
CHRISTMAS BELL RINGER NOTE INFORMED PRIMARY HOSPITALIST THAT PT DID NOT PASS NURSING SWALLOW SCREEN AND THAT THE NURSE WILL MAINTAIN NPO STATUS PENDING SPEECH THERAPIST EVAL. ORDERS RECEIVED TO CHANGE PRIMARY FLUIDS TO D5NS @ 75ML/HR. CONFIRMED VIA READ BACK AND CARRIED OUT.
[2018-09-23] MEDS: IV D5/ 0.9% NACL 1,000 ML IV PRN (11:20)
[2018-09-23] MEDS: FLUCONAZOLE IN NS 100 MG in PREMIX 1 EA IV SCH ×2 (17:21)
--- NOTE | 2018-09-23 18:41 | NUR ---
FRAME OPENER CLOSING NOTE PT IN BED, RESTING WITH EYES CLOSED. PT IS ALERT AND ORIENTED X1, EYES OPEN SPONTANEOUSLY TO VERBAL AND TACTILE STIMULI. NO ACUTE DISTRESS NOTED, BREATHING IS EVEN AND UNLABORED ON ROOM AIR. PT ON NEWSPAPER OR PERIODICAL EDITOR AND IS SINUS RHYTHM WITH 1ST DEGREE AV BLOCK HR 60'S DURING THE SHIFT. PT HAS RIGHT FA #18G THAT IS INFUSING D5NS @ 75ML/HR WITHOUT REDNESS OR SWELLING AND RIGHT AC #20G AND L AC #20G IVS THAT ARE SALINE LOCKED WITHOUT REDNESS OR SWELLING. ADLS PROVIDED AND PT ASSISTED TO TURN AND REPOSITION Q2H FOR THE DURATION OF THE SHIFT. CONTACT AND ASPIRATION PRECAUTIONS MAINTAINED. ALL NEEDS ATTENDED TO. NPO STATUS MAINTAINED PENDING SWALLOW EVAL. BED IS LOCKED AND IN LOWEST POSITION, SIDE RAILS UP X3, BED ALARM ON, CALL LIGHT AND POSSESSIONS WITHIN REACH. WILL ENDORSE TO PHYSICAL TESTING SUPERVISOR NURSE FOR CONTINUITY OF CARE.
--- NOTE | 2018-09-23 19:40 | NUR ---
RN INITIAL NOTES: RECEIVED REPORT FROM BHUPENDRA CHOUDHURY. PT IN BED, AWAKE, ON 5L OXYGEN, RESPIRATION EVEN AND UNLABORED, APPEARS CALM AND COMFORTABLE. ON NPO. TELE MONITORING SINUS CANDICE HR 57. IV ACCESS PATENT AND FLUSHING WELL, LEFT FA IV ACCESS INFUSING WITH NS AT 75ML/HR. HAS FOURNIER CATHETER DRAINING INTO YELLOW COLORED URINE, URINE SENT TO LAB FOR CULTURE. ON ISO- ESBL URINE HISTORY, PPE UTILIZED. BLE OFFLOADED. SAFETY PRECAUTIONS FOR FALL INITIATED, CALL LIGHT IN REACH, WILL CONTINUE MONITORING PT.
[2018-09-23] MEDS: VANCOMYCIN 1 GM in IV D5W 250 ML IV SCH (19:47)
--- NOTE | 2018-09-23 20:40 | NUR ---
ACCU CHECK: NOTED PT SLEEPY, CHECK BLOOD SUGAR AT THIS TIME, RESULT OBTAINED 227, PER MAIL PROCESSOR PT'S HR WENT LOW, HR 45, PT AROUSABLE, OPEN EYES, HR GOES FROM 50-64. PT ON D5NS AT 75ML/HR, ON NPO, AWAITING SWALLOW EVAL.
--- NOTE | 2018-09-23 21:17 | NUR ---
RN NOTES: SPOKED WITH MD BLADE ALIGNER INFORMED ABOUT PT'S HR, ON SINUS CANDICE LOWEST 40'S, PT BEEN ON SINUS RHYTHM SINCE ADMISSION BUT SINCE 1900 TODAY NOTED A CHANGE IN HIS HR, OF THE MOMENT HR IS 50'S HIGHEST 65. VS STABLE, BS 227, SEEN BY NEURO FOR EEG IN AM, INFORMED PT BEEN SLEEPING MOST OF THE TIME (BASELINE), AROUSABLE, PER MD CONTINUE MONITORING
--- NOTE | 2018-09-23 23:15 | NUR ---
ACCU CHECK 233: BLOOD SUGAR 233, NO INSULIN GIVEN PT ON NPO
[2018-09-24] VITALS: BP 131/66
[2018-09-24] MEDS: IV D5/ 0.9% NACL 1,000 ML IV PRN ×2 (01:39→15:19)
[2018-09-24 04:00] VITALS: BP 133/79
[2018-09-24] MEDS: BLOOD SUGAR DIAGNOSTIC 1 EACH STRIP IN SCH ×4 (05:10→23:43)
[2018-09-24] MEDS: INSULIN REGULAR, HUMAN 100 UNIT/ML 3 ML VIAL SQ PRN ×4 (05:10→23:43)
--- NOTE | 2018-09-24 05:11 | NUR ---
ACCU CHECK 238: BLOOD SUGAR 238, NO INSULIN COVERAGE GIVEN PT ON NPO
[2018-09-24 06:41] LABS: BASOPHILS # (AUTO) 0.1 /CMM (0.0-0.2); EOSINOPHILS % (AUTO) 3.4 % (0.0-6.0); HEMATOCRIT 31 % (39-51); HEMOGLOBIN 10.3 g/dL (13.5-17.5); LYMPHOCYTES # (AUTO) 1.7 /CMM (0.8-4.8); LYMPHOCYTES % (AUTO) 18.1 % (20.0-44.0); MEAN CORPUSCULAR HGB CONC 34 g/dl (31.0-36.0); MEAN CORPUSCULAR VOLUME 90 fL (80-96); MONOCYTES # (AUTO) 0.6 /CMM (0.1-1.30); MONOCYTES % (AUTO) 6.6 % (2.0-12.0); NEUTROPHILS # (AUTO) 6.8 /CMM (1.8-8.9); NEUTROPHILS % (AUTO) 70.9 % (43.0-81.0); PLATELET COUNT (AUTO) 267 /CMM (150-450); WHITE BLOOD COUNT (AUTO) 9.6 K/uL (4.3-11.0)
--- NOTE | 2018-09-24 07:00 | NUR ---
RN CLOSING NOTES: PT IN BED, REMAINS A/O X3 WITH EPISODE OF CONFUSION,HALLUCINATION, FAMILY AT BED SIDE. PT ON 2L OXYGEN, RESPIRATION REMAINS LABORED, SOUND CONGESTED, AWARE. IV ACCESS REMAINS PATENT AND FLUSHING WELL, ON HL. REMAINS ON V PACING HR 76. VS REMAINS STABLE, NEEDS ATTENDED. SAFETY PRECAUTIONS FOR FALL REMAINS ENGAGED, CALL LIGHT IN REACH, WILL ENDORSE TO DAY RN FOR CONTINUITY OF CARE. Addendum: 09/24/18 at 0701 by WILLI RIVAS RN DISREGARD ABOVE DOCUMENTATION, WRONG ENTRY
--- NOTE | 2018-09-24 07:00 | NUR ---
RN CLOSING NOTES: PT IN BED, REMAINS A/O X1 EYE FOLLOWS WITH MOVEMENT, + BLINKING REFLEX, ON OXYGEN 5L RESPIRATION EVEN AND UNLABORED. IV ACCESS REMAINS PATENT AND FLUSHING WELL, INFUSING WITH IVF ORDERED. REMAINS ON ISOLATION, PPE UTILIZED. BLE OFFLOADED. REMAINS NPO. AWAITING EEG. SINUS RHYTHM HR 71. MD AWARE, NO NEW ORDERS. SAFETY PRECAUTIONS FOR FALL REMAINS ENGAGED, CALL LIGHT IN REACH, WILL ENDORSE TO DAY RN FOR CONTINUITY OF CARE.
[2018-09-24 07:02] LABS: CALCIUM, SERUM 8.5 mg/dL (8.5-10.1); CARBON DIOXIDE 27 mmol/L (21-32); CHLORIDE 113 mmol/L (98-107); GLUCOSE 257 mg/dL (74-106); MAGNESIUM 2.1 mg/dL (1.8-2.4); PHOSPHORUS 2.4 mg/dL (2.5-4.9); POTASSIUM 3.4 mmol/L (3.5-5.1); SODIUM SERUM 148 mmol/L (136-145); UREA NITROGEN, BLOOD 23 mg/dL (7-18)
--- NOTE | 2018-09-24 07:43 | NUR ---
SERVICE AIDE OPENING NOTE RECEIVED PT IN BED, RESTING WITH EYES CLOSED. PT IS ALERT AND ORIENTED X1, EYES OPEN SPONTANEOUSLY TO VERBAL AND TACTILE STIMULI. NO ACUTE DISTRESS NOTED, BREATHING IS EVEN AND UNLABORED ON 5L NC. PT ON BASTING MACHINE OPERATOR AND IS SINUS RHYTHM, HR 76 AT THIS TIME. PT HAS RIGHT FA #18G THAT IS INFUSING D5NS @ 75ML/HR WITHOUT REDNESS OR SWELLING AND RIGHT AC #20G AND L AC #20G IVS THAT ARE SALINE LOCKED WITHOUT REDNESS OR SWELLING. ASPIRATION AND CONTACT PRECAUTIONS MAINTAINED. ALL NEEDS ATTENDED TO. PT IS NPO PENDING SWALLOW EVAL. BED IS LOCKED AND IN LOWEST POSITION, SIDE RAILS UP X3, BED ALARM ON, CALL LIGHT AND POSSESSIONS WITHIN REACH.
[2018-09-24 08:00] VITALS: BP 148/63
[2018-09-24] MEDS: MEROPENEM 1 G in IV NS 0.9% 100 ML IV SCH (08:27)
[2018-09-24] MEDS: FAMOTIDINE/PF INJ 20 MG/2 ML VIAL IV SCH ×2 (08:27→17:36)
--- NOTE | 2018-09-24 11:20 | NUR ---
UTILIZATION SUPERVISOR NOTE CLARIFIED WITH REGARDING K PHOS REPLACEMENT. PER DR.SAM LAURA TO REPLACE K PHOS IV 15MMOL PER PHARMACY SUGGESTION. VERIFIED VIA READ BACK AND INITIATED.
--- NOTE | 2018-09-24 12:29 | NUR ---
WOUND CARE CONSULT: PT PRESENTS WITH RASH AND PEELING SKIN TO BUTTOCKS AND PERINEUM, PRESENT ON ADMISSION WITH INCONTINENCE ASSOCIATED SKIN DAMAGE TO GLUTEAL CREASE. RECOMMENDATIONS MADE FOR SKIN PROTECTION AND CARE. DISCUSSED WITH NURSING STAFF. CURRENT ENOCH SCORE IS 10. LOW AIRLOSS BED TO BE PLACED (ISOFLEX). WILL SEE PRN. VENEGAS IN AGREEMENT WITH PLAN OF CARE. Addendum: 09/24/18 at 1231 by JOHNNY EDWARDS [facility] Amended: Links added.
--- NOTE | 2018-09-24 12:30 | NUR ---
MS RN NOTE SPEECH THERAPIST AT THE BEDSIDE FOR EVAL. PER SPEECH THERAPIST MAINTAIN NPO STATUS AND SHE WILL TRY EVAL AGAIN TOMORROW. PT IS NOT SWALLOWING AND COUGHING WITH LIQUIDS AND AT HIGH RISK FOR ASPIRATION.
[2018-09-24] MEDS: POTASSIUM PHOSPHATE MM 5 MMOL in IV D5W 100 ML IV SCH ×3 (13:26→18:22)
--- NOTE | 2018-09-24 13:37 | NUR ---
MS RN NOTE INFORMED PRIMARY HOSPITALIST OF NEED FOR HOME MED RECON AND THAT PT HAS NOT BEEN RECEIVING DEPAKOTE. PER ORDER LAB TO CHECK SERUM DEPAKOTE LEVEL TOMORROW MORNING. ORDERS CONFIRMED VIA READ BACK AND INITIATED.
[2018-09-24 16:00] VITALS: BP 149/75
[2018-09-24] MEDS: FLUCONAZOLE IN NS 100 MG in PREMIX 1 EA IV SCH ×2 (17:36)
[2018-09-24] MEDS: CLOTRIMAZOLE 1% 15 GM TUBE TP SCH (17:36)
--- NOTE | 2018-09-24 18:11 | NUR ---
MS RN CLOSING NOTE PT IN BED, RESTING WITH EYES CLOSED. PT IS ALERT AND ORIENTED X1, EYES OPEN SPONTANEOUSLY TO VERBAL AND TACTILE STIMULI. NO ACUTE DISTRESS NOTED, BREATHING IS EVEN AND UNLABORED ON 5L NC. PT HAS RIGHT FA #18G THAT IS INFUSING D5NS @ 75ML/HR WITHOUT REDNESS OR SWELLING AND RIGHT AC #20G AND L AC #20G IVS THAT ARE SALINE LOCKED WITHOUT REDNESS OR SWELLING. ADLS PROVIDED AND PT ASSISTED TO TURN AND REPOSITION Q2H FOR THE DURATION OF THE SHIFT. CONTACT AND ASPIRATION PRECAUTIONS MAINTAINED. ALL NEEDS ATTENDED TO. NPO STATUS MAINTAINED PENDING SWALLOW REEVALUATION TOMORROW MORNING. BED IS LOCKED AND IN LOWEST POSITION, SIDE RAILS UP X3, BED ALARM ON, CALL LIGHT AND POSSESSIONS WITHIN REACH. WILL ENDORSE TO ERADICATOR NURSE FOR CONTINUITY OF CARE.
--- NOTE | 2018-09-24 19:40 | NUR ---
RN INITIAL NOTES: RECEIVED REPORT FROM BHUPENDRA CHOUDHURY. PT IN BED, AWAKE, APPEARS CALM AND COMFORTABLE. ON NPO. ON 5L OXYGEN, RESPIRATION EVEN AND UNLABORED. IV ACCESS PATENT AND FLUSHING WELL, LEFT FA IV ACCESS INFUSING WITH D5NS AT 75ML/HR. FOURNIER CATHETER IN PLACED, DRAINING INTO YELLOW COLORED URINE. ON ISO- ESBL URINE HISTORY, PPE UTILIZED. AWAITING FOR KAVON/[facility] MATTRESS, STILL BEING CLEANED BY EVS. BLE OFFLOADED. SAFETY PRECAUTIONS FOR FALL INITIATED, CALL LIGHT IN REACH, WILL CONTINUE MONITORING PT.
[2018-09-24 20:00] VITALS: BP 139/72
--- NOTE | 2018-09-24 23:43 | NUR ---
accu check 230: blood sugar 230, no insulin coverage given pt on npo
--- NOTE | 2018-09-25 03:13 | NUR ---
RN NOTES: NO KAVON MATTRESS AVAILABLE, EXISTING ORDER FOR [facility] MATTRESS PLACED SINCE MONDAY, LEFT A MESSAGE TO [facility] [employer] TO BRING [facility] IN AM
[2018-09-25] MEDS: IV D5/ 0.9% NACL 1,000 ML IV PRN ×2 (05:30→22:17)
[2018-09-25] MEDS: BLOOD SUGAR DIAGNOSTIC 1 EACH STRIP IN SCH ×3 (05:44→17:07)
[2018-09-25] MEDS: INSULIN REGULAR, HUMAN 100 UNIT/ML 3 ML VIAL SQ PRN ×3 (05:45→17:52)
--- NOTE | 2018-09-25 05:45 | NUR ---
ACCU CHECK 212: BLOOD SUGAR 212, NO INSULIN GIVEN PT NPO, FOR SWALLOW EVAL TODAY
--- NOTE | 2018-09-25 06:45 | NUR ---
RN CLOSING NOTES: PT IN BED, REMAINS ON OXYGEN RESPIRATION EVEN AND UNLABORED, REMAINS NPO, FOR SWALLOW EVAL TODAY. HIGH RISK FOR ASPIRATYION, SUCTION SET UP SECURED. IV ACCESS REMAINS PATENT AND FLUSHING WELL, INFUSING WITH IVF ORDERED. FOURNIER BAG EMPTIED BY BALING MACHINE TENDER. VS REMAINS STABLE, NEEDS ATTENDED. SAFETY PRECAUTIONS FOR FALL REMAINS ENGAGED, CALL LIGHT IN REACH, WILL ENDORSE TO DAY RN FOR CONTINUITY OF CARE.
[2018-09-25 07:26] LABS: VALPROIC ACID < 3 ug/mL (50-100)
[2018-09-25 07:29] LABS: CALCIUM, SERUM 8.6 mg/dL (8.5-10.1); CARBON DIOXIDE 30 mmol/L (21-32); CHLORIDE 109 mmol/L (98-107); CREATININE 1.1 mg/dL (0.6-1.3); GLUCOSE 232 mg/dL (74-106); POTASSIUM 3.4 mmol/L (3.5-5.1); SODIUM SERUM 147 mmol/L (136-145); UREA NITROGEN, BLOOD 18 mg/dL (7-18)
[2018-09-25 07:30] LABS: MAGNESIUM 1.9 mg/dL (1.8-2.4); PHOSPHORUS 2.9 mg/dL (2.5-4.9)
--- NOTE | 2018-09-25 07:35 | NUR ---
MS/RN OPENING NOTE PATIENT IN BED IN STABLE CONDITION. A/OX 1, NON VERBAL. NO SIGNS OF ACUTE DISTRESS. NO COMPLAIN OF PAIN OR DISCOMFORT. NPO STATUS AT THIS TIME SECONDARY TO NOT ABLE TO PASS SWALLOW TEST YESTERDAY. SCHEDULED SWALLOW TEST TODAY. ALL NEEDS ATTENDED TO. CALL LIGHT WITHIN REACH. WILL CONTINUE TO MONITOR TO ENSURE SAFETY.
[2018-09-25 08:00] VITALS: BP 144/88
[2018-09-25] MEDS: FAMOTIDINE/PF INJ 20 MG/2 ML VIAL IV SCH ×2 (08:39→17:07)
[2018-09-25] MEDS: CLOTRIMAZOLE 1% 15 GM TUBE TP SCH ×2 (08:41→17:18)
[2018-09-25] MEDS ORDERED: POTASSIUM CHLORIDE 20 MEQ TAB.PRT.SR PO SCH (10:30)
[2018-09-25 12:00] VITALS: BP 152/86
[2018-09-25 16:00] VITALS: BP 152/86
[2018-09-25] MEDS ORDERED: FLUCONAZOLE (100 MG) 100 MG TABLET PO SCH (18:00)
--- NOTE | 2018-09-25 18:23 | NUR ---
MS/RN CLOSING NOTE PATIENT IN BED IN STABLE CONDITION. A/OX 1. NO SIGNS OF ACUTE DISTRESS. NO COMPLAIN OF PAIN OR DISCOMFORT. ALL NEEDS ATTENDED TO. HOB ELEVATED AT ALL TIMES FOR ASPIRATION PRECAUTION. CALL LIGHT WITHIN REACH. WILL ENDORSE TO NEXT SHIFT FOR CONTINUITY OF CARE.
--- NOTE | 2018-09-25 19:50 | NUR ---
MSRN FULLY AWKAE, TRYING TO COMMUNICATE. COOPERATIVE, REPOSITIONED. KEPT COMFORTABLE. PRESEMT IVF TO INFUSE NO DUE MEDS OF THIS TIME. NO SOB. 02 MAINTAINED
[2018-09-25 20:24] VITALS: BP 155/88
--- NOTE | 2018-09-25 22:40 | NUR ---
MSRN AWAKE STILL, APPEARS COMFORTABLE.
[2018-09-26] MEDS: BLOOD SUGAR DIAGNOSTIC 1 EACH STRIP IN SCH ×3 (00:35→11:41)
[2018-09-26] MEDS: INSULIN REGULAR, HUMAN 100 UNIT/ML 3 ML VIAL SQ PRN ×2 (00:35→12:04)
--- NOTE | 2018-09-26 06:30 | NUR ---
DOUG BS 152. PRESENT IVF CONTINUED.
--- NOTE | 2018-09-26 07:05 | NUR ---
MSRN ENDORSED TO INCMOING RN FOR CONTINUITY OF CARE
[2018-09-26 07:36] LABS: BASOPHILS # (AUTO) 0.1 /CMM (0.0-0.2); EOSINOPHILS % (AUTO) 4.3 % (0.0-6.0); HEMATOCRIT 33 % (39-51); LYMPHOCYTES # (AUTO) 2.8 /CMM (0.8-4.8); LYMPHOCYTES % (AUTO) 39.2 % (20.0-44.0); MEAN CORPUSCULAR HGB CONC 34 g/dl (31.0-36.0); MEAN CORPUSCULAR VOLUME 90 fL (80-96); MONOCYTES # (AUTO) 0.6 /CMM (0.1-1.30); MONOCYTES % (AUTO) 8.8 % (2.0-12.0); NEUTROPHILS # (AUTO) 3.3 /CMM (1.8-8.9); NEUTROPHILS % (AUTO) 46.7 % (43.0-81.0); PLATELET COUNT (AUTO) 261 /CMM (150-450); RED BLOOD CELL COUNT(AUTO) 3.63 MIL/uL (4.5-6.0); WHITE BLOOD COUNT (AUTO) 7.1 K/uL (4.3-11.0)
[2018-09-26 07:42] LABS: CALCIUM, SERUM 8.8 mg/dL (8.5-10.1); CARBON DIOXIDE 29 mmol/L (21-32); CHLORIDE 107 mmol/L (98-107); CREATININE 0.9 mg/dL (0.6-1.3); GLUCOSE 158 mg/dL (74-106); MAGNESIUM 1.6 mg/dL (1.8-2.4); POTASSIUM 2.9 mmol/L (3.5-5.1); SODIUM SERUM 142 mmol/L (136-145); UREA NITROGEN, BLOOD 13 mg/dL (7-18)
[2018-09-26 08:00] VITALS: BP 131/72
[2018-09-26] MEDS ORDERED: POTASSIUM CHLORIDE 20 MEQ TAB.PRT.SR PO ONE (09:00)
[2018-09-26] MEDS: Magnesium 1GM/D5W 100ML PREMIX 100 ML IV SCH ×2 (09:56→10:54)
[2018-09-26] MEDS: CLOTRIMAZOLE 1% 15 GM TUBE TP SCH ×2 (09:56→17:35)
[2018-09-26] MEDS: FAMOTIDINE/PF INJ 20 MG/2 ML VIAL IV SCH ×2 (10:02→17:35)
--- NOTE | 2018-09-26 14:00 | NUR ---
f/c discontinued per Hair N.P.
[2018-09-26] MEDS ORDERED: FLUC100T8 PO (14:26)
--- NOTE | 2018-09-26 14:50 | NUR ---
Patient voided. Denies pain
[2018-09-26 16:00] VITALS: BP 135/59
--- NOTE | 2018-09-26 18:30 | NUR ---
patient cleared for d/c back to assisted living by . Patient a/o x1 , VS are stable, on O2 2l via NC. Discharge instructions, med recon and prescription provided to facility. D/C pictures taken and placed in the chart. IV assess removed, ID wrist band removed. Patient picked up by ambulance.
== END 2018-09-26 19:00 | DRG 871 ==
LOC: ER 18:37 → TELE 20:17 → MED 09-24 11:01
PROVIDERS: ADMIT Student in an Organized Health Care Education/Training Program; ATTEND Hospitalist
DX: A41.9 Sepsis, unspecified organism (principal); N17.0 Acute kidney failure with tubular necrosis; G92 Toxic encephalopathy; J69.0 Pneumonitis due to inhalation of food and vomit; E44.0 Moderate protein-calorie malnutrition; E87.0 Hyperosmolality and hypernatremia; I13.0 Hypertensive heart and chronic kidney disease with heart failure and stage 1 through stage 4 chronic kidney disease, or unspecified chronic kidney disease; R64 Cachexia; J98.11 Atelectasis; R65.20 Severe sepsis without septic shock; E11.22 Type 2 diabetes mellitus with diabetic chronic kidney disease; E11.65 Type 2 diabetes mellitus with hyperglycemia; D63.8 Anemia in other chronic diseases classified elsewhere; E78.5 Hyperlipidemia, unspecified; E83.42 Hypomagnesemia; F03.90 Unspecified dementia, unspecified severity, without behavioral disturbance, psychotic disturbance, mood disturbance, and anxiety; E87.6 Hypokalemia; N18.9 Chronic kidney disease, unspecified; I50.9 Heart failure, unspecified; Z79.4 Long term (current) use of insulin; Z79.82 Long term (current) use of aspirin; Z86.73 Personal history of transient ischemic attack (TIA), and cerebral infarction without residual deficits; Z79.899 Other long term (current) drug therapy; F90.9 Attention-deficit hyperactivity disorder, unspecified type; M62.84 Sarcopenia; Z87.81 Personal history of (healed) traumatic fracture; N40.1 Benign prostatic hyperplasia with lower urinary tract symptoms; R33.8 Other retention of urine; R56.9 Unspecified convulsions; B37.9 Candidiasis, unspecified
CPT/HCPCS: 36415; 70450-TC; 71045-TC; 80048-TC; 80076-TC; 80164-TC; 80202-TC; 81000-TC; 82962-TC; 83605-TC; 83735-TC; 84100-TC; 84443-TC; 84484-TC; 85025-TC; 85730-TC; 87040-TC; 87081-TC; 87086-TC; 92526; 92611-TC; 95819-TC; A4216; A6253; A6402; G0378; J0743; J1450; J1815; J2185; J3370; J3475; J3480; J3490; J7030; J7042; J7050; J7060

== ENCOUNTER 2018-10-29 14:35 | Inpatient (IN) | payer MEDICARE, BC ==
[~2018-10-29] VITALS: Ht 165.1 cm; Wt 82.6 kg
[~2018-10-29 14:35] MED LIST changes: +BISA10SU11 RC; +BLOO-668 IN; +DOCU-141 PO; +FLUC100T8 PO; +MAGN400O6 PO; -MENT3.5O TP; -MERO1VIA IV; +NA P133E RC
[2018-10-29 15:08] LABS: BASOPHILS % (AUTO) 0.3 % (0.0-2.0); EOSINOPHILS % (AUTO) 0.1 % (0.0-6.0); HEMATOCRIT 39 % (39-51); HEMOGLOBIN 12.5 g/dL (13.5-17.5); LYMPHOCYTES # (AUTO) 1.1 /CMM (0.8-4.8); LYMPHOCYTES % (AUTO) 7.1 % (20.0-44.0); MEAN CORPUSCULAR HGB CONC 33 g/dl (31.0-36.0); MEAN CORPUSCULAR VOLUME 92 fL (80-96); MONOCYTES # (AUTO) 2.1 /CMM (0.1-1.30); MONOCYTES % (AUTO) 13.3 % (2.0-12.0); NEUTROPHILS # (AUTO) 12.5 /CMM (1.8-8.9); NEUTROPHILS % (AUTO) 79.2 % (43.0-81.0); PLATELET COUNT (AUTO) 391 /CMM (150-450); RED BLOOD CELL COUNT(AUTO) 4.19 MIL/uL (4.5-6.0); WHITE BLOOD COUNT (AUTO) 15.7 K/uL (4.3-11.0)
[2018-10-29 15:10] LABS: APPEARANCE,URINE Cloudy (CLEAR); BILIRUBIN,URINE Negative (NEGATIVE); BLOOD, URINE Trace-intact Ery/uL (NEGATIVE); COLOR,URINE Yellow (YELLOW); KETONES,URINE Negative (NEGATIVE); LEUKOCYTE ESTERASE ,URINE Moderate (NEGATIVE); NITRITE, URINE Negative (NEGATIVE); PH,URINE 5.5 (5.0-8.0); PROTEIN,URINE 100 mg/dl (NEGATIVE); UGLUCOSE 100 MG/DL mg/dL (NEGATIVE); UROBILINOGEN,URINE 0.2 EU/dL (0.2)
--- NOTE | 2018-10-29 15:14 | NUR ---
73 YEAR OLD MALE BIB RA C/O ALTERED, FEBRILE, WITH LOW O2 SATURATION. ALERT TO TACTILE STIMULI. BREATHING LABORED IN DISTRESS, HIGH FLOW OXYGEN WAS PLACED ON PATIENT. NOTED WITH F/C POA. SKIN WARM TO TOUCH. AWAITNG TO BE SEEN BY
--- NOTE | 2018-10-29 15:15 | NUR ---
[employer] WEBSPHERE PORTAL DEVELOPER AT BEDSIDE
[2018-10-29 15:18] LABS: BACTERIA,URINE Moderate /HPF (None Seen); RBC,URINE 0-3 /HPF (0-2); SQUAMOUS EPITHELIAL CELL,UR Few /HPF (None Seen); WBC,URINE 80-100 /HPF (0-3)
[2018-10-29] MEDS ORDERED: FURO-145 PO (15:18)
[2018-10-29] MEDS ORDERED: METO50TA16 PO (15:18)
[2018-10-29] MEDS ORDERED: DULO30CA2 PO (15:18)
[2018-10-29 15:30] LABS: ALANINE AMINOTRANSFERASE 20 U/L (12-78); ALBUMIN 2.2 g/dL (3.4-5.0); ALKALINE PHOSPHATASE 67 U/L (46-116); ASPARTATE AMINOTRANSFERASE 39 U/L (15-37); BILIRUBIN,TOTAL 0.3 mg/dL (0.2-1.0); CALCIUM, SERUM 9.1 mg/dL (8.5-10.1); CARBON DIOXIDE 30 mmol/L (21-32); CHLORIDE 104 mmol/L (98-107); CREATININE 1.5 mg/dL (0.6-1.3); POTASSIUM 3.4 mmol/L (3.5-5.1); SODIUM SERUM 143 mmol/L (136-145); TOTAL PROTEIN, SERUM 7.2 g/dL (6.4-8.2); UREA NITROGEN, BLOOD 29 mg/dL (7-18)
[2018-10-29] MEDS ORDERED: ACETAMINOPHEN 650 MG/SUPP.RECT RC ONE ×2 (15:30→15:40)
[2018-10-29] MEDS ORDERED: PIPERACILLIN /TAZOBACTAM 3.375 G in IV D5W 50 ML IV ONE (15:30)
[2018-10-29] MEDS ORDERED: IV NS 0.9% 1,000 ML BAG IV ONE ×2 (15:30→16:00)
[2018-10-29 15:32] LABS: GLUCOSE 472 mg/dL (74-106)
--- NOTE | 2018-10-29 16:00 | NUR ---
PATIENT REMAINS STABLE WITH IV FLUIDS RUNNING ORDERED. AWAITING FOR INPATIENT BED
--- NOTE | 2018-10-29 17:01 | NUR ---
CALLED NURSING SUP. FOR DAISY BED
--- NOTE | 2018-10-29 17:30 | NUR ---
ROJAS FROM PATIENTS B&C PROVIDED CONTACT INFO [phone]
[2018-10-29] MEDS ORDERED: LORAZEPAM 0.5 MG TABLET ONE (17:33)
--- NOTE | 2018-10-29 17:40 | NUR ---
DAISY 103
--- NOTE | 2018-10-29 17:52 | NUR ---
REPORT GIVEN TO MARK IN DAISY TO JOHN CONTINUITY OF CARE
[2018-10-29] MEDS ORDERED: ONDANSETRON HCL/PF 4 MG/2 ML VIAL IVP PRN (18:00)
[2018-10-29] MEDS ORDERED: MAGNESIUM HYDROXIDE 30 ML UDC PO PRN (18:00)
[2018-10-29] MEDS ORDERED: DEXTROSE 50%-WATER 50 ML DISP.SYRIN IV PRN (18:00)
[2018-10-29] MEDS ORDERED: MAG HYDROX/AL HYDROX/SIMETH 30 ML UDC PO PRN (18:00)
--- NOTE | 2018-10-29 18:40 | NUR ---
DAISY RN NOTES PT RECEIVED IN BED, ROOM 103. ON NON REBREATHER MASK AT 94%. PT ALERT TO NAME ONLY, MOANING. PT BROUGHT INTO ER WITH FOURNIER CATH IN PLACE. R HAND #20, LFA #[address]. PT IS AFEBRILE AT THIS TIME. VS WNL. PLACED ON TELE MONITOR. ID BAND PLACED. WILL ENDORSE TO PM NURSE FOR REINIER
--- NOTE | 2018-10-29 19:34 | NUR ---
STAVE LOG RIPSAW OPERATOR NOTES RECEIVED PT ON BED. A/O X 1. ON NRB 15L @100 % NO RESPIRATORY DISTRESS NOTED. ON TELE MONITOR SR 66. FOURNIER CATH DRAINING TEA COLORED URINE. IV ACCESS ON RIGHT G20 AND LFA G20 PATENT AND INTACT WITH NS RUNNING @ 100CC/HR/ HEAD OF BED ELEVATED. SIDE RAILS UP. CALL LIGHT WITHIN REACH. BED ALARM ON. WILL CONTINUE TO MONITOR PT CLOSELY.
[2018-10-29 20:00] VITALS: BP 130/69
[2018-10-29] MEDS: IV NS 0.9% 1,000 ML IV PRN (20:01)
[2018-10-29] MEDS: risperiDONE 1 MG TABLET PO SCH (21:00)
[2018-10-29] MEDS: BLOOD SUGAR DIAGNOSTIC 1 EACH STRIP IN SCH (21:08)
[2018-10-29] MEDS: INSULIN GLARGINE, 100 UNIT/ML CARTRIDGE SQ SCH (21:09)
[2018-10-29] MEDS: INSULIN REGULAR, HUMAN 100 UNIT/ML 3 ML VIAL SQ PRN (21:12)
--- NOTE | 2018-10-29 21:31 | NUR ---
UNDERWRITING ANALYST NOTES PT NPO FOR NOW, ASPIRATION RISK. HOLDING LANTUS 20UNITS.
--- NOTE | 2018-10-29 21:45 | NUR ---
COORDINATE MEASURING EQUIPMENT OPERATOR NOTES PT PLACED ON NRB 15L DUE TO DESATURATION.
[2018-10-29] MEDS: PIPERACILLIN /TAZOBACTAM 2.25 G in IV D5W 50 ML IV SCH (22:02)
--- NOTE | 2018-10-29 22:26 | NUR ---
AIRSET MOLDER NOTES PAGED EPIC FOR ORDERS. PT DESATURATING. RT AT BEDSIDE.
--- NOTE | 2018-10-29 22:34 | NUR ---
LIVE GAMES DEALER NOTES PAGED [facility] INTERNET E COMMERCE SPECIALIST X2 FOR ORDERS. AWAITING CALL BACK.
[2018-10-29 22:36] LABS: ABG BASE EXCESS 4.4 mmol/L; ABG OXYGEN SATURATION 88.5 % (92.0-98.5); ABG PCO2 45.2 mmHg (35.0-45.0); AaDO2 609.8 mmHg; COHb 0.1 % (0.5-1.5); MetHb 0.7 % (0.0-1.5); O2Hb 87.8 % (94.0-97.0); SITE, ABG Left Radial; VENT MODE, BG NON REBREATHER
--- NOTE | 2018-10-29 22:45 | NUR ---
ORDER BUILDER LOADER NOTES PER TIMO. CHEST XRAY STAT, MONITOR FOR NOW.
--- NOTE | 2018-10-29 23:03 | NUR ---
POLITICAL RESEARCHER NOTES TIMO EDGE GLUE MACHINE TENDER AT BEDSIDE. MADE AWARE OF LACTIC 2.7. PER TIMO ANOTHER ABG IN AN HOUR.
[2018-10-30] VITALS (23 sets, daily range): BP systolic 95–154; BP diastolic 42–84
[2018-10-30 00:11] LABS: ABG OXYGEN SATURATION 98.7 % (92.0-98.5); ABG PCO2 44.7 mmHg (35.0-45.0); ABG PH 7.428 (7.350-7.450); ABG PO2 155.7 mmHg (75.0-100.0); AaDO2 512.6 mmHg; COHb 0.3 % (0.5-1.5); MetHb 0.7 % (0.0-1.5); O2Hb 97.7 % (94.0-97.0); SITE, ABG Left Radial
--- NOTE | 2018-10-30 00:36 | NUR ---
REAL ESTATE ANALYST NOTES CALLED RADIOLOGY FOR CXR RESULTS. AWAITING RESULTS.
--- NOTE | 2018-10-30 01:16 | NUR ---
METER MAINTENANCE PERSON NOTES RELATED TO TIMO ABG RESULTS AND CXR RESULT. PER TIMO TITRATE 10LPM SIMPLE FACE MASK AND ASTER IVF, RT MADE AWARE OF THE PLAN OF CARE.
--- NOTE | 2018-10-30 01:17 | NUR ---
DEVELOPER ADVISOR NOTES INFORMED TIMO REGARDING PT STILL ALTERED. TIMO MADE AWARE.
[2018-10-30] MEDS: PIPERACILLIN /TAZOBACTAM 2.25 G in IV D5W 50 ML IV SCH (04:04)
[2018-10-30] MEDS: IV NS 0.9% 1,000 ML IV PRN ×2 (05:29→14:06)
[2018-10-30 06:15] LABS: BASOPHILS % (AUTO) 0.3 % (0.0-2.0); HEMATOCRIT 35 % (39-51); HEMOGLOBIN 11.5 g/dL (13.5-17.5); LYMPHOCYTES # (AUTO) 1.3 /CMM (0.8-4.8); LYMPHOCYTES % (AUTO) 7.6 % (20.0-44.0); MEAN CORPUSCULAR HGB CONC 33 g/dl (31.0-36.0); MEAN CORPUSCULAR VOLUME 92 fL (80-96); MONOCYTES # (AUTO) 1.6 /CMM (0.1-1.30); MONOCYTES % (AUTO) 9.2 % (2.0-12.0); NEUTROPHILS # (AUTO) 14.3 /CMM (1.8-8.9); NEUTROPHILS % (AUTO) 82.9 % (43.0-81.0); PLATELET COUNT (AUTO) 300 /CMM (150-450); RED BLOOD CELL COUNT(AUTO) 3.87 MIL/uL (4.5-6.0); WHITE BLOOD COUNT (AUTO) 17.3 K/uL (4.3-11.0)
[2018-10-30 06:49] LABS: CALCIUM, SERUM 8.9 mg/dL (8.5-10.1); CARBON DIOXIDE 30 mmol/L (21-32); CHLORIDE 109 mmol/L (98-107); CREATININE 1.3 mg/dL (0.6-1.3); GLUCOSE 264 mg/dL (74-106); PHOSPHORUS 3.6 mg/dL (2.5-4.9); SODIUM SERUM 147 mmol/L (136-145); UREA NITROGEN, BLOOD 28 mg/dL (7-18)
--- NOTE | 2018-10-30 07:09 | NUR ---
DYEING MACHINE TENDER NOTES NO ACUTE CHANGES NOTED DURING THE SHIFT. PT MORE ALERT, UNABLE TO TOLERATE FACE MASK , PT ON NRB 15LPM SATURATING 100%. HEAD OF BED ELEVATED. SIDE RAILS UP. CALL LIGHT WITHIN REACH. BED ALARM ON. WILL CONTINUE TO MONITOR PT CLOSELY.
--- NOTE | 2018-10-30 07:10 | NUR ---
RN NOTES RECEIVED PT ON BED, LETHARGIC , OPENS EYES TO VERBAL STIMULI, NONVERBAL, ON NRB MASK , O2 SAT 98%, O2 DROPS TO 84% ON FACE MASK, PT LEFT ON NRB MASK PER MD ORDER, ON TELE SR HR IN 80'S , FOURNIER DRAINING TO GRAVITY, RIGHT AND LEFT FOREARM AND R WRIST IV SITES G 20 CLEAN, DRY AND INTACT, NS AT 100CC/HR RUNNING , SR UP x3, CALL LIGHT WITHIN EASY REACH, BED LOCKED AND IN LOWEST POSITION, CONTINUE TO MONITOR
[2018-10-30 07:24] LABS: CHOLESTEROL 167 mg/dL (<200); HDL CHOLESTEROL 30 mg/dL (40-60); LDL 110 mg/dL (0-99); TRIGLYCERIDES 111 mg/dL (30-150)
[2018-10-30] MEDS: PANTOPRAZOLE 40 MG TABLET.DR PO SCH ×2 (07:30→08:53)
--- NOTE | 2018-10-30 08:03 | NUR ---
WOUND CARE CONSULT: PT PRESENTS WITH STAGE 2 ULCER TO SACRUM AND INTACT DEEP TISSUE INJURIES TO RT LATERAL ANKLE AND RT HEEL, PRESENT ON ADMISSION. SHANTANU GUAN NOTED. PT IS IMMOBILE AND NONVERBAL. CURRENT ENOCH SCORE IS 11. RECOMMENDATIONS MADE FOR SKIN PROTECTION AND WOUND CARE. DISCUSSED WITH NURSING STAFF. FIRST STEP LOW AIRLOSS MATTRESS ORDERED. WILL SEE PRN. VENEGAS IN AGREEMENT WITH PLAN OF CARE. Addendum: 10/30/18 at 0806 by JOHNNY EDWARDS WNDNU Amended: Links added.
[2018-10-30] MEDS: FINASTERIDE (5 MG) 5 MG TABLET PO SCH ×2 (08:47→09:00)
[2018-10-30] MEDS: METOPROLOL TARTRATE 50 MG TABLET PO SCH ×3 (08:47→17:00)
[2018-10-30] MEDS: DULOXETINE HCL 30 MG CAPSULE.DR PO SCH ×3 (08:47→17:00)
[2018-10-30] MEDS: BENZTROPINE MESYLATE (1 MG) 1 MG TABLET PO SCH ×2 (08:48→09:00)
[2018-10-30] MEDS: BLOOD SUGAR DIAGNOSTIC 1 EACH STRIP IN SCH ×4 (08:48→22:38)
[2018-10-30] MEDS: DIVALPROEX SODIUM 250 MG TABLET.DR PO SCH ×4 (08:48→17:00)
[2018-10-30] MEDS: AMLODIPINE BESYLATE 5 MG TABLET PO SCH (08:50)
[2018-10-30] MEDS: hydrALAZINE HCL 25 MG TABLET PO SCH ×3 (08:52→17:00)
[2018-10-30 08:54] LABS: ABG BASE EXCESS 5.5 mmol/L; ABG PCO2 49.3 mmHg (35.0-45.0); ABG PH 7.416 (7.350-7.450); ABG PO2 208.6 mmHg (75.0-100.0); COHb 0.2 % (0.5-1.5); MetHb 0.7 % (0.0-1.5); O2Hb 98.1 % (94.0-97.0); SITE, ABG Right Radial
[2018-10-30] MEDS: risperiDONE 0.25 MG TABLET PO SCH ×2 (08:54→17:00)
[2018-10-30] MEDS: INSULIN REGULAR, HUMAN 100 UNIT/ML 3 ML VIAL SQ SCH ×2 (09:00→17:00)
[2018-10-30] MEDS: HYDROGEL DRESSING 90 GM TUBE TP PRN (09:13)
[2018-10-30] MEDS: HYDROGEL DRESSING 90 GM TUBE TP SCH (09:13)
[2018-10-30] MEDS: Z GUARD REMEDY 2 OZ OINT TP SCH (09:14)
--- NOTE | 2018-10-30 09:30 | NUR ---
RN NOTES PT SILL ON NRB MASK AND LETHARGIC, UNABLE TO TAKE MEDS , MORINING MEDS HELD , ORDER RECEIVED FROM DR WALTERS TO TRANSFER PT TO ICU FOR CLOSE OBSERVATION.
--- NOTE | 2018-10-30 10:10 | NUR ---
RN NOTES REPORT GIVEN TO MINAL CHOUDHURY ICU FOR CONTINUITY OF CARE .
[2018-10-30] MEDS: ENOXAPARIN SODIUM 30 MG/0.3 ML DISP.SYRIN SQ SCH (11:31)
[2018-10-30] MEDS: IPRATROPIUM NEB FS 0.5 MG/2.5 ML AMPUL.NEB NEB SCH ×4 (11:37→23:30)
[2018-10-30] MEDS: ALBUTEROL HALF STRENGTH 1.25 MG/3 ML VIAL.NEB NEB SCH ×4 (11:37→23:30)
[2018-10-30] MEDS: INSULIN REGULAR, HUMAN 100 UNIT/ML 3 ML VIAL SQ PRN ×2 (11:49→17:50)
[2018-10-30] MEDS ORDERED: POTASSIUM CHLORIDE 20 MEQ TAB.PRT.SR PO SCH (12:00)
[2018-10-30] MEDS ORDERED: FEE PK DOSING 1 MIN EA MC ONE (12:28)
[2018-10-30] MEDS: POTASSIUM CL. PREMIX PERIPHER. 50 ML IV SCH ×4 (12:39→15:57)
[2018-10-30] MEDS: PIPERACILLIN /TAZOBACTAM 3.375 G in IV D5W 100 ML IV SCH ×2 (12:39→21:25)
[2018-10-30] MEDS: VANCOMYCIN 1.25 GM in IV D5W 500 ML IV SCH (13:28)
--- NOTE | 2018-10-30 13:57 | NUR ---
QC MANAGER NOTE RCVD PT'S CARE ENDORSED FROM MACEY PINON. PT OPENS EYES, ABLE TO FOLLOW SOME COMMANDS INCONSISTENTLY, NON-VERBAL, APPEARS LETHARGIC. SR ON MONITOR, TOLERATING O2 VIA NRB MASK, FOURNIER CANISTER CHANGED, CHAD, CEMENT FINISHER HELPER IN UNIT INFORMED OF LOW K, HIGH Na AND NS INFUSING MAINTENANCE FLUIDS. REPLACEMENT FOR K RECOMMENDED, CONTINUE WITH NS. IV SITES C/D/I/PATENT, ALL FLUSHED NO SIGNS OF INFILTRATION/PHLEBITIS OBSERVED. WILL KEEP PT NPO AT THIS TIME DUE TO LETHARGY AND HOLD ON INSULIN COVERAGE PER CHAD. WILL CONTINUE TO MONITOR PT FOR SAFETY AND COMFORT, CALL LIGHT WITHIN REACH, HEAD OF BED ELEVATED AT 25 DEGREES ORDERED.
--- NOTE | 2018-10-30 18:29 | NUR ---
FINANCIAL FOUNDATIONS REPRESENTATIVE NOTE PT REMAINS STABLE, SHOWING NO SIGNS OF DISTRESS/PAIN, O2 VIA MASK TOLERATING WELL, ORAL CARE AND SUCTIONING, UNABLE TO CLEAR SECRETIONS INDEPENDENTLY, SR ON MONITOR WITH PERIODS OF ST WHEN AGITATED AND TACHYPNEIC. FOURNIER DRAINING CLOUDY, YELLOW URINE WITH SEDIMENT, REMAINS NPO. OK TO ADMINISTER COVERAGE FOR MILD INSULIN SCALE DUE TO HAVING ABX MIXED WITH D5W. CHAD, TRAVEL MONEY ADVISOR AWARE. PT'S CARE WILL BE ENDORSED TO CATERERS HELPER RN FOR CONTINUITY OF CARE, BED IN LOW AND LOCKED POSITION, CALL LIGHT WITHIN REACH, HEAD OF BED ELEVATED.
--- NOTE | 2018-10-30 19:00 | NUR ---
FLOORING SALESPERSON NOTES RECEIVED PATIENT LETHARGIC,NON VERBAL, HARD TO AROUSE,VERY DEEP SLEEP, BUT VITAL SIGNS STBALE,NOT IN NAY DISTRESS,SATURATING 100 %.. ON NRM 100%. WILL CLOSELY MONITOR NEURO AND RESPIRATORY STATUS.COMFORT CARE DONE.
--- NOTE | 2018-10-30 19:05 | NUR ---
VP OF PRODUCT NOTE PT'S CARE ENDORSED TO MACEY BRYANT. JAIME BONILLA AWARE OF PT'S DECREASED URINARY OUTPUT SINCE TRANSFERRED TO ICU.
[2018-10-30] MEDS: NEXIUM 40 MG VIAL IV SCH (22:00)
[2018-10-30] MEDS: INSULIN GLARGINE, 100 UNIT/ML CARTRIDGE SQ SCH (22:00)
--- NOTE | 2018-10-30 22:00 | NUR ---
UNABLE TO GIVE PO MEDS ,PATIENT VERY LETHARGIC. ASPIRATION PRECAUTION OBSERVED,MAINTAIN ON HIGH TREVIÑO'S POSITION.
[2018-10-30] MEDS: risperiDONE 1 MG TABLET PO SCH (22:31)
[2018-10-31] VITALS (30 sets, daily range): BP systolic 87–170; BP diastolic 46–124
--- NOTE | 2018-10-31 | NUR ---
MORE RESPONSIVE ,OPENS EYES ,MOVING UPPER EXTREMITIES, BUT NOT TALKING JUST MOANING ,NOT FOLLOWING COMMANDS.STILL ON NRM 100%,SATURATING WELL,NOT IN ANY DISTRESS BUT EASILY DESATURATES TO LOW 90'S WHEN FIO2 IS LOWER THAN THE NRM %( I.E WHEN RESPIRATORY TREATMENT IS BEING ADMINISTERED VIA MASK). WILL CONTINUE TO MONITOR RESPIRATORY STATUS.
[2018-10-31] MEDS: IV NS 0.9% 1,000 ML IV PRN ×3 (00:12→22:46)
--- NOTE | 2018-10-31 04:00 | NUR ---
REMAINS STABLE,AWAKE,ALERT BUT RESTLESS AND MOANING A LOT,DOES NOT SEEM TO BE IN PAIN.AM CARE DONE, COOPERATIVE. NOT IN NAY DISTRESS.
[2018-10-31] MEDS: IPRATROPIUM NEB FS 0.5 MG/2.5 ML AMPUL.NEB NEB SCH ×6 (04:08→23:02)
[2018-10-31] MEDS: ALBUTEROL HALF STRENGTH 1.25 MG/3 ML VIAL.NEB NEB SCH ×6 (04:08→23:02)
[2018-10-31] MEDS: PIPERACILLIN /TAZOBACTAM 3.375 G in IV D5W 100 ML IV SCH ×2 (04:18→11:37)
[2018-10-31 04:55] LABS: BASOPHILS % (AUTO) 0.2 % (0.0-2.0); EOSINOPHILS % (AUTO) 0.1 % (0.0-6.0); HEMATOCRIT 32 % (39-51); HEMOGLOBIN 10.5 g/dL (13.5-17.5); LYMPHOCYTES # (AUTO) 0.8 /CMM (0.8-4.8); LYMPHOCYTES % (AUTO) 4.5 % (20.0-44.0); MEAN CORPUSCULAR HGB CONC 33 g/dl (31.0-36.0); MEAN CORPUSCULAR VOLUME 93 fL (80-96); MONOCYTES # (AUTO) 1.5 /CMM (0.1-1.30); MONOCYTES % (AUTO) 8.2 % (2.0-12.0); NEUTROPHILS # (AUTO) 15.8 /CMM (1.8-8.9); PLATELET COUNT (AUTO) 300 /CMM (150-450); RED BLOOD CELL COUNT(AUTO) 3.42 MIL/uL (4.5-6.0); WHITE BLOOD COUNT (AUTO) 18.1 K/uL (4.3-11.0)
[2018-10-31 05:07] LABS: CALCIUM, SERUM 8.7 mg/dL (8.5-10.1); CARBON DIOXIDE 29 mmol/L (21-32); CHLORIDE 111 mmol/L (98-107); CREATININE 1.2 mg/dL (0.6-1.3); GLUCOSE 262 mg/dL (74-106); POTASSIUM 2.9 mmol/L (3.5-5.1); SODIUM SERUM 148 mmol/L (136-145); UREA NITROGEN, BLOOD 25 mg/dL (7-18)
[2018-10-31] MEDS: BLOOD SUGAR DIAGNOSTIC 1 EACH STRIP IN SCH ×4 (08:18→22:24)
[2018-10-31 08:51] LABS: ABG BASE EXCESS 3.1 mmol/L; ABG OXYGEN SATURATION 95.3 % (92.0-98.5); ABG PCO2 40.6 mmHg (35.0-45.0); ABG PH 7.447 (7.350-7.450); ABG PO2 77.3 mmHg (75.0-100.0); AaDO2 595.1 mmHg; COHb 0.1 % (0.5-1.5); MetHb 0.9 % (0.0-1.5); O2Hb 94.3 % (94.0-97.0); SITE, ABG Right Radial; VENT MODE, BG HFNC 60L 100%
[2018-10-31] MEDS: MUPIROCIN OINT 2% 22 GM TUBE SCH ×2 (09:03→21:30)
[2018-10-31] MEDS: AMLODIPINE BESYLATE 5 MG TABLET PO SCH (09:03)
[2018-10-31] MEDS: FINASTERIDE (5 MG) 5 MG TABLET PO SCH (09:04)
[2018-10-31] MEDS: DIVALPROEX SODIUM 250 MG TABLET.DR PO SCH ×4 (09:04→17:48)
[2018-10-31] MEDS: DULOXETINE HCL 30 MG CAPSULE.DR PO SCH ×3 (09:04→17:18)
[2018-10-31] MEDS: risperiDONE 0.25 MG TABLET PO SCH ×2 (09:05→17:19)
[2018-10-31] MEDS: hydrALAZINE HCL 25 MG TABLET PO SCH ×3 (09:05→17:18)
[2018-10-31] MEDS: BENZTROPINE MESYLATE (1 MG) 1 MG TABLET PO SCH (09:06)
[2018-10-31] MEDS: METOPROLOL TARTRATE 50 MG TABLET PO SCH ×3 (09:07→17:18)
[2018-10-31] MEDS: ENOXAPARIN SODIUM 30 MG/0.3 ML DISP.SYRIN SQ SCH (09:08)
[2018-10-31] MEDS: NEXIUM 40 MG VIAL IV SCH ×2 (09:51→21:32)
[2018-10-31] MEDS: INSULIN REGULAR, HUMAN 100 UNIT/ML 3 ML VIAL SQ SCH ×2 (09:55→19:00)
[2018-10-31] MEDS: Z GUARD REMEDY 2 OZ OINT TP SCH (09:56)
[2018-10-31] MEDS: HYDROGEL DRESSING 90 GM TUBE TP SCH (09:56)
[2018-10-31] MEDS: POTASSIUM CL. PREMIX PERIPHER. 50 ML IV SCH ×6 (11:37→17:05)
[2018-10-31] MEDS: VANCOMYCIN 1.25 GM in IV D5W 500 ML IV SCH (13:22)
[2018-10-31] MEDS: LACTOBACILLUS RHAMNOSUS GG 1 EACH CAP.SPRINK PO SCH ×2 (17:00→17:18)
[2018-10-31] MEDS ORDERED: MEROPENEM 500 MG in IV NS 0.9% 50 ML IV ONE (18:30)
--- NOTE | 2018-10-31 19:00 | NUR ---
HOME THEATER SPECIALIST NOTES RECEIVED PATIENT ASLEEP BUT EASILY AWAKENS,ALERT,NON VERBAL BUT FOLLOWS SIMPLE COMMANDS , WITH GOOD EYE CONTACT.MOVES BOTH UPPER EXTREMITIES,BUT WEAKER,BARELY MOVING LOWER EXTREMITIES. NOT IN ANY DISTRESS BUT ON HIGH FLOW O2, SATURATING 95-98%.COMFORT CARE DONE, ASPIRATION PRECAUTION OBSERVED,MAINTAINED ON HIGH TREVIÑO'S POSITION.
--- NOTE | 2018-10-31 19:36 | NUR ---
RN NOTES 0800-PATIENT AWAKE, SWALLOW EVAL DONE. PATIENT SEEN BY DR WALTERS, PATIENT PLACED ON HIGH FLOW O2.POSITIONED SAFELY. ASPIRATION PRECAUTIONS OBSERVED. 1200-ACCUCHECKS DONE, PATIENT REMAINS NPO. ASPIRATION PRECAUTIONS DONE, ORAL CARE DONE SAFELY. 1400-PATIENT REPOSITIONED SAFELY.ORAL CARE DONE. K BEING REPLETED ORDERED. 1800-CHAD, DNP NOTIFIED OF PATIENT UNSAFE TO SWALLOW FOOD/MEDS. PATIENT ON IVF. 1900-PATIENT RESTING, REPORT GIVEN TO INCOMING RN FOR FURTHER CARE
--- NOTE | 2018-10-31 21:30 | NUR ---
PO MED GIVEN , ASPIRATION PRECAUTION OBSERVED,MAINTAINED ON HIGH TREVIÑO'S POSITION. SWALLOWS VERY SLOWLY WITH MEDS GIVEN WITH APPLE SAUCE.
[2018-10-31] MEDS: risperiDONE 1 MG TABLET PO SCH (21:31)
[2018-10-31] MEDS: INSULIN GLARGINE, 100 UNIT/ML CARTRIDGE SQ SCH (22:00)
[2018-11-01] VITALS (27 sets, daily range): BP systolic 105–172; BP diastolic 46–104
--- NOTE | 2018-11-01 | NUR ---
STABLE ,NOT IN ANY DISTRESS,AWAKE,ALERT, NON VERBAL.COMFORT CARE DONE.
[2018-11-01] MEDS: ALBUTEROL HALF STRENGTH 1.25 MG/3 ML VIAL.NEB NEB SCH ×6 (02:40→23:21)
[2018-11-01] MEDS: IPRATROPIUM NEB FS 0.5 MG/2.5 ML AMPUL.NEB NEB SCH ×6 (02:40→23:21)
[2018-11-01] MEDS: MEROPENEM 500 MG in IV NS 0.9% 100 ML IV SCH ×3 (04:30→21:00)
[2018-11-01 05:00] LABS: CALCIUM, SERUM 9.1 mg/dL (8.5-10.1); CARBON DIOXIDE 31 mmol/L (21-32); CHLORIDE 110 mmol/L (98-107); GLUCOSE 254 mg/dL (74-106); POTASSIUM 3.2 mmol/L (3.5-5.1); SODIUM SERUM 148 mmol/L (136-145); UREA NITROGEN, BLOOD 16 mg/dL (7-18)
--- NOTE | 2018-11-01 07:00 | NUR ---
REMAINS STABLE,AWAKE,ALERT,NOT IN ANY DISTRESS.REPORT GIVEN TO DAYSHIFT RN.
[2018-11-01] MEDS: BLOOD SUGAR DIAGNOSTIC 1 EACH STRIP IN SCH ×4 (08:59→22:00)
[2018-11-01] MEDS: INSULIN REGULAR, HUMAN 100 UNIT/ML 3 ML VIAL SQ SCH ×2 (09:00→17:00)
[2018-11-01] MEDS: AMLODIPINE BESYLATE 5 MG TABLET PO SCH (09:03)
[2018-11-01] MEDS: METOPROLOL TARTRATE 50 MG TABLET PO SCH ×2 (09:03→17:00)
[2018-11-01] MEDS: FINASTERIDE (5 MG) 5 MG TABLET PO SCH (09:04)
[2018-11-01] MEDS: BENZTROPINE MESYLATE (1 MG) 1 MG TABLET PO SCH (09:04)
[2018-11-01] MEDS: DIVALPROEX SODIUM 250 MG TABLET.DR PO SCH ×3 (09:05→17:51)
[2018-11-01] MEDS: hydrALAZINE HCL 25 MG TABLET PO SCH ×2 (09:06→17:00)
[2018-11-01] MEDS: LACTOBACILLUS RHAMNOSUS GG 1 EACH CAP.SPRINK PO SCH ×2 (09:06→17:54)
[2018-11-01] MEDS: HYDROGEL DRESSING 90 GM TUBE TP PRN ×2 (09:07→09:16)
[2018-11-01] MEDS: Z GUARD REMEDY 2 OZ OINT TP SCH (09:08)
[2018-11-01] MEDS: MUPIROCIN OINT 2% 22 GM TUBE SCH ×2 (09:15→21:01)
[2018-11-01] MEDS: DULOXETINE HCL 30 MG CAPSULE.DR PO SCH ×2 (09:17→17:54)
[2018-11-01] MEDS: INSULIN REGULAR, HUMAN 100 UNIT/ML 3 ML VIAL SQ PRN (09:21)
[2018-11-01] MEDS: ENOXAPARIN SODIUM 30 MG/0.3 ML DISP.SYRIN SQ SCH (09:24)
[2018-11-01] MEDS: risperiDONE 0.25 MG TABLET PO SCH ×2 (09:30→17:56)
[2018-11-01] MEDS: NEXIUM 40 MG VIAL IV SCH ×2 (09:30→21:00)
[2018-11-01] MEDS: HYDROGEL DRESSING 90 GM TUBE TP SCH (09:32)
[2018-11-01] MEDS: POTASSIUM CHLORIDE 20 MEQ TAB.PRT.SR PO SCH ×2 (10:30→11:30)
[2018-11-01] MEDS: VANCOMYCIN 1.25 GM in IV D5W 500 ML IV SCH (13:55)
--- NOTE | 2018-11-01 16:00 | NUR ---
Patient alert slow to respond can answer yes /no questions appropriately. Was not able to receive any of his medication PO because of his inability to follow commands when asked to swallow, even with massaging his throat while asking him to swallow patient was not performing task. Order noted for NGT placement ,place in right nare and is now able to receive po medication via NGT. Addendum: 11/01/18 at 1741 by WILVER BUCKLEY RN Patient son called and states he would like to talk with MD about his Dad condition and his prognosis. States one of his fathers caregivers mentioned Hospice care to him but he would like to discuss with the care for his father with the MD. Will pass informatiom to AM nurse to make sure MD is aware of Sons desire to discuss his Dad plan of care with him Z
[2018-11-01] MEDS ORDERED: POTASSIUM CHLORIDE 20 MEQ POWDER PACKET GT ONE (17:30)
--- NOTE | 2018-11-01 17:41 | NUR ---
Potassium was not given this AM but was given now since patient has NGT.
[2018-11-01] MEDS: IV NS 0.9% 1,000 ML IV PRN (19:52)
--- NOTE | 2018-11-01 20:00 | NUR ---
CIRCUIT BREAKER ASSEMBLER - NOTES - RECEIVED PATIENT ASLEEP BUT EASILY AWAKENS, ALERT, ABLE TO ANSWER SIMPLE QUESTIONS AND FOLLOWS SIMPLE COMMANDS , WITH GOOD EYE CONTACT. MOVES BOTH UPPER EXTREMITIES, BUT BARELY MOVING LOWER EXTREMITIES. NOT IN ANY DISTRESS BUT ON HIGH FLOW O2, SATURATING 95-98%.COMFORT CARE DONE, ASPIRATION PRECAUTION OBSERVED,MAINTAINED ON HIGH TREVIÑO'S POSITION.
[2018-11-01] MEDS: risperiDONE 1 MG TABLET PO SCH (21:04)
[2018-11-01] MEDS: INSULIN GLARGINE, 100 UNIT/ML CARTRIDGE SQ SCH (22:00)
[2018-11-02] VITALS (25 sets, daily range): BP systolic 102–161; BP diastolic 56–90
[2018-11-02] MEDS: IPRATROPIUM NEB FS 0.5 MG/2.5 ML AMPUL.NEB NEB SCH ×6 (03:10→23:07)
[2018-11-02] MEDS: ALBUTEROL HALF STRENGTH 1.25 MG/3 ML VIAL.NEB NEB SCH ×6 (03:11→23:07)
[2018-11-02 05:12] LABS: BASOPHILS # (AUTO) 0.1 /CMM (0.0-0.2); BASOPHILS % (AUTO) 0.4 % (0.0-2.0); EOSINOPHILS % (AUTO) 0.4 % (0.0-6.0); HEMATOCRIT 30 % (39-51); HEMOGLOBIN 9.9 g/dL (13.5-17.5); LYMPHOCYTES % (AUTO) 6.6 % (20.0-44.0); MEAN CORPUSCULAR HGB CONC 33 g/dl (31.0-36.0); MEAN CORPUSCULAR VOLUME 93 fL (80-96); MONOCYTES # (AUTO) 1.2 /CMM (0.1-1.30); MONOCYTES % (AUTO) 7.7 % (2.0-12.0); NEUTROPHILS # (AUTO) 13.4 /CMM (1.8-8.9); NEUTROPHILS % (AUTO) 84.9 % (43.0-81.0); PLATELET COUNT (AUTO) 305 /CMM (150-450); RED BLOOD CELL COUNT(AUTO) 3.26 MIL/uL (4.5-6.0); WHITE BLOOD COUNT (AUTO) 15.8 K/uL (4.3-11.0)
[2018-11-02 05:36] LABS: CARBON DIOXIDE 28 mmol/L (21-32); CHLORIDE 110 mmol/L (98-107); CREATININE 0.8 mg/dL (0.6-1.3); GLUCOSE 226 mg/dL (74-106); POTASSIUM 2.9 mmol/L (3.5-5.1); SODIUM SERUM 147 mmol/L (136-145); UREA NITROGEN, BLOOD 16 mg/dL (7-18)
[2018-11-02 05:41] LABS: CALCIUM, SERUM 9.1 mg/dL (8.5-10.1)
[2018-11-02] MEDS: MEROPENEM 500 MG in IV NS 0.9% 100 ML IV SCH ×3 (05:42→21:40)
[2018-11-02] MEDS: IV NS 0.9% 1,000 ML IV PRN ×3 (05:46→23:11)
[2018-11-02] MEDS: VANCOMYCIN 1.25 GM in IV D5W 500 ML IV SCH (06:15)
--- NOTE | 2018-11-02 07:30 | NUR ---
INITIAL - RECEIVED PATIENT ASLEEP BUT EASILY AWAKENS, ALERT, WITH GOOD EYE CONTACT. MOVES BOTH UPPER EXTREMITIES, PT NS ON BLOCK OPERATOR WITH G-TUBE THROUGH LEFT NARE PT HAS THREE PIV'S 2 ON LFA AND 1 ON RIGHT FA ALL 20G NS @ 100 MLS/HR RUNNING ALL CLEAN DRY AND INTACT. NO DISTRESS NOTED ON HIGH FLOW O2, SATURATING 95-98%. @ 80%. COMFORT CARE DONE, ASPIRATION PRECAUTION OBSERVED,MAINTAINED ON HIGH TREVIÑO'S POSITION.WILL CONTINUE TO MONITOR
[2018-11-02] MEDS: LACTOBACILLUS RHAMNOSUS GG 1 EACH CAP.SPRINK PO SCH ×2 (08:35→16:57)
[2018-11-02] MEDS: hydrALAZINE HCL 25 MG TABLET PO SCH ×2 (08:35→17:04)
[2018-11-02] MEDS: METOPROLOL TARTRATE 50 MG TABLET PO SCH ×2 (08:35→17:03)
[2018-11-02] MEDS: NEXIUM 40 MG VIAL IV SCH ×2 (08:35→21:40)
[2018-11-02] MEDS: FINASTERIDE (5 MG) 5 MG TABLET PO SCH (08:36)
[2018-11-02] MEDS: risperiDONE 0.25 MG TABLET PO SCH ×2 (08:36→17:03)
[2018-11-02] MEDS: BENZTROPINE MESYLATE (1 MG) 1 MG TABLET PO SCH (08:36)
[2018-11-02] MEDS: AMLODIPINE BESYLATE 5 MG TABLET PO SCH (08:36)
[2018-11-02] MEDS: DULOXETINE HCL 30 MG CAPSULE.DR PO SCH ×2 (08:36→17:03)
[2018-11-02] MEDS: Z GUARD REMEDY 2 OZ OINT TP PRN ×3 (08:39→09:05)
[2018-11-02] MEDS: DIVALPROEX SODIUM 250 MG TABLET.DR PO SCH ×3 (08:39→17:12)
[2018-11-02] MEDS: HYDROGEL DRESSING 90 GM TUBE TP PRN ×2 (08:40→09:05)
[2018-11-02] MEDS: ENOXAPARIN SODIUM 30 MG/0.3 ML DISP.SYRIN SQ SCH (08:45)
[2018-11-02] MEDS: INSULIN REGULAR, HUMAN 100 UNIT/ML 3 ML VIAL SQ SCH (09:00)
[2018-11-02] MEDS: BLOOD SUGAR DIAGNOSTIC 1 EACH STRIP IN SCH ×3 (09:02→19:21)
[2018-11-02] MEDS: INSULIN REGULAR, HUMAN 100 UNIT/ML 3 ML VIAL SQ PRN ×3 (09:03→19:25)
[2018-11-02] MEDS: MUPIROCIN OINT 2% 22 GM TUBE SCH ×2 (09:03→21:40)
[2018-11-02] MEDS: HYDROGEL DRESSING 90 GM TUBE TP SCH (09:06)
[2018-11-02] MEDS: Z GUARD REMEDY 2 OZ OINT TP SCH (09:06)
[2018-11-02] MEDS: POTASSIUM CL. PREMIX PERIPHER. 50 ML IV SCH ×6 (09:42→17:11)
--- NOTE | 2018-11-02 11:00 | NUR ---
PT TAKEN OFF HIG FLOWW O2 SINCE 1024 NOW GRUNTING AND INCREASED RESPIRATIONS CHANGED BACK TO HIG FLOW.
[2018-11-02] MEDS ORDERED: DEXTROSE 50%-WATER 50 ML DISP.SYRIN IV PRN (11:30)
--- NOTE | 2018-11-02 17:53 | NUR ---
ORDERED CHEST X-RAY FOR NG-TUBE PLACEMENT
[2018-11-02] MEDS ORDERED: POTASSIUM CL. PREMIX PERIPHER. 50 ML IV SCH (18:00)
--- NOTE | 2018-11-02 19:54 | NUR ---
CLOSING PT REMAINS ON HIGH FLOW O2 AT 91% SEEN BY LEIDA PT REMAINS ORIENTED X 2 MOVES UPPER EXTREMITIES TURNED SIDE TO SIDE. BED IN LOW POSITION HOB ELEVATED X-RAY CONFIRN NG-TUBE PLACEMENT BED IN LOW POSITION. RN REPORT GIVEN TO PM SHIFT FOR CONTINUITY OF CARE.
[2018-11-02] MEDS: GLUCERNA 1.2 1,000 ML BOTTLE NG PRN (21:35)
[2018-11-02] MEDS: risperiDONE 1 MG TABLET PO SCH (21:40)
[2018-11-02] MEDS: ACETAMINOPHEN 325 MG TABLET PO PRN (21:56)
[2018-11-03] VITALS (24 sets, daily range): BP systolic 104–159; BP diastolic 53–91
[2018-11-03] MEDS: BLOOD SUGAR DIAGNOSTIC 1 EACH STRIP IN SCH ×5 (00:08→23:45)
[2018-11-03] MEDS: INSULIN REGULAR, HUMAN 100 UNIT/ML 3 ML VIAL SQ PRN ×5 (00:53→23:45)
[2018-11-03] MEDS: VANCOMYCIN 1.25 GM in IV D5W 500 ML IV SCH ×2 (01:17→18:19)
[2018-11-03] MEDS: ALBUTEROL HALF STRENGTH 1.25 MG/3 ML VIAL.NEB NEB SCH ×6 (02:59→22:52)
[2018-11-03] MEDS: IPRATROPIUM NEB FS 0.5 MG/2.5 ML AMPUL.NEB NEB SCH ×6 (02:59→22:52)
[2018-11-03] MEDS: MEROPENEM 500 MG in IV NS 0.9% 100 ML IV SCH ×3 (04:12→20:51)
--- NOTE | 2018-11-03 04:16 | NUR ---
ICU/BATCH PLANT OPERATOR FEEDING RESIDUALS IS 0, FEEDING INCREASED TO 30ML. WILL CONTINUE TO MONITOR THIS PT AND HIS RESIDUALS.
--- NOTE | 2018-11-03 04:25 | NUR ---
ICU/INSTRUCTIONAL LEADER RESUME CARE OF PT AND RECEIVED REPORT FROM NIGHT NURSE QING. PT WAS TUNED AND REPOSITIONED FOR COMFORT AND CARE.
--- NOTE | 2018-11-03 04:40 | NUR ---
CAR PINCHER NOTE GAVE REPORT TO NURSE FOR CONTINUITY OF CARE.
--- NOTE | 2018-11-03 05:00 | NUR ---
ICU/PROTEIN SPECIALIST PT WAS GIVEN AM CARE, ALONG WITH ORAL CARE. PT REMAINS ON CURRENT HIGH FLOW OXYGEN SETTINGS, WITH SATURATION AT 84-86%. PT WAS TURNED AND REPOSITIONED FOR COMFORT AND CARE. WILL CONTINUE TO MONITOR THIS PT. NO ACUTE DISTRESS SEEN AT THIS TIME, HOWEVER PT IS VERY RESTLESS AND AGITATED.
[2018-11-03 05:09] LABS: BASOPHILS # (AUTO) 0.1 /CMM (0.0-0.2); BASOPHILS % (AUTO) 0.4 % (0.0-2.0); HEMATOCRIT 33 % (39-51); HEMOGLOBIN 10.7 g/dL (13.5-17.5); LYMPHOCYTES # (AUTO) 1.9 /CMM (0.8-4.8); LYMPHOCYTES % (AUTO) 14.5 % (20.0-44.0); MEAN CORPUSCULAR HGB CONC 32 g/dl (31.0-36.0); MEAN CORPUSCULAR VOLUME 92 fL (80-96); MONOCYTES % (AUTO) 7.6 % (2.0-12.0); NEUTROPHILS # (AUTO) 9.9 /CMM (1.8-8.9); NEUTROPHILS % (AUTO) 75.5 % (43.0-81.0); PLATELET COUNT (AUTO) 308 /CMM (150-450); RED BLOOD CELL COUNT(AUTO) 3.62 MIL/uL (4.5-6.0); WHITE BLOOD COUNT (AUTO) 13.2 K/uL (4.3-11.0)
[2018-11-03 05:27] LABS: CALCIUM, SERUM 8.8 mg/dL (8.5-10.1); CARBON DIOXIDE 30 mmol/L (21-32); CHLORIDE 105 mmol/L (98-107); CREATININE 0.9 mg/dL (0.6-1.3); GLUCOSE 230 mg/dL (74-106); POTASSIUM 3.2 mmol/L (3.5-5.1); SODIUM SERUM 138 mmol/L (136-145); UREA NITROGEN, BLOOD 14 mg/dL (7-18)
[2018-11-03 05:31] LABS: THYROID STIMULATING HORMONE 1.251 uIU/mL (0.358-3.74)
[2018-11-03 05:32] LABS: BAND % (MANUAL) 2 % (0.0-5.0); EOSINOPHILS % (MANUAL) 1 % (0-4); LYMPHOCYTES % (MANUAL) 8 % (16-48); MONOCYTES % (MANUAL) 5 % (0-11.0); NEUTROPHILS % (MANUAL) 84 (42-76)
[2018-11-03] MEDS: ACETAMINOPHEN 325 MG TABLET PO PRN ×2 (06:07→23:46)
--- NOTE | 2018-11-03 06:10 | NUR ---
ICU/BURLAP MAN PT IS AGITATED, SATURATION FELL. CALLED RT WHO WAS ABLE TO VERIFY THAT THIS IS SOMETHING PT DOES. PT WAS GIVEN TYLENOL 650MG VIA G/TUBE
--- NOTE | 2018-11-03 07:15 | NUR ---
RN INITIAL NOTES RECEIVED PT AWAKE,A/0X1. RESPONDS TO VERBAL AND TACTILE STIMULI. ONHI FLOW 02. HOB ELEVATED. NO SOB NOTED. NO SIGNS OF PAIN NOTED. NGT IN PLACE. TOLERATING GTF WELL. IV LINES IN PLACE. IVF INFUSING. FC IN PLACE. NO HEMATURIA NOTED. BLE ELEVATED. REPOSITIONED. WILL CONTINUE TO MONITOR.
[2018-11-03 08:09] LABS: ABG BASE EXCESS 2.1 mmol/L; ABG OXYGEN SATURATION 95.1 % (92.0-98.5); ABG PCO2 35.8 mmHg (35.0-45.0); ABG PH 7.472 (7.350-7.450); ABG PO2 78.3 mmHg (75.0-100.0); AaDO2 598.9 mmHg; COHb 0.3 % (0.5-1.5); MetHb 0.6 % (0.0-1.5); O2Hb 94.2 % (94.0-97.0); SITE, ABG Right Radial; VENT MODE, BG HF 60L 100%
[2018-11-03] MEDS: ENOXAPARIN SODIUM 30 MG/0.3 ML DISP.SYRIN SQ SCH (08:16)
[2018-11-03] MEDS: NEXIUM 40 MG VIAL IV SCH ×2 (08:18→21:02)
[2018-11-03] MEDS: AMLODIPINE BESYLATE 5 MG TABLET PO SCH (08:18)
[2018-11-03] MEDS: FINASTERIDE (5 MG) 5 MG TABLET PO SCH (08:18)
[2018-11-03] MEDS: METOPROLOL TARTRATE 50 MG TABLET PO SCH ×2 (08:19→16:31)
[2018-11-03] MEDS: DIVALPROEX SODIUM 250 MG TABLET.DR PO SCH ×3 (08:19→16:35)
[2018-11-03] MEDS: risperiDONE 0.25 MG TABLET PO SCH ×2 (08:19→16:30)
[2018-11-03] MEDS: MUPIROCIN OINT 2% 22 GM TUBE SCH ×2 (08:19→21:15)
[2018-11-03] MEDS: hydrALAZINE HCL 25 MG TABLET PO SCH ×2 (08:19→16:31)
[2018-11-03] MEDS: BENZTROPINE MESYLATE (1 MG) 1 MG TABLET PO SCH (08:19)
[2018-11-03] MEDS: LACTOBACILLUS RHAMNOSUS GG 1 EACH CAP.SPRINK PO SCH ×2 (08:19→16:31)
[2018-11-03] MEDS: DULOXETINE HCL 30 MG CAPSULE.DR PO SCH ×2 (08:19→16:31)
[2018-11-03] MEDS: Z GUARD REMEDY 2 OZ OINT TP SCH (08:20)
[2018-11-03] MEDS: HYDROGEL DRESSING 90 GM TUBE TP SCH (08:20)
[2018-11-03] MEDS: IV NS 0.9% 1,000 ML IV PRN (09:27)
[2018-11-03] MEDS ORDERED: POTASSIUM CHLORIDE 20 MEQ POWDER PACKET GT ONE (11:00)
--- NOTE | 2018-11-03 11:00 | NUR ---
RN NOTES 1030 SEEN AND EXAMINED BY DR BEST. PT ON HI-FLOW 01. AWARE OF ABG RESULT. NO CHANGES MADE. WILL CLOSELY MONITOR. 1100 SEEN AND EXAMINED BY CHAD SPEAR NP. PT A/OX1. ON HI-FLOW 02. HOB ELEVATED. NO SOB NOTED. NO RESPIRATORY DISTRESS NOTED. AWARE OF LAB VALUES AND CXR RESULT. WILL CONTINUE TO MONITOR
[2018-11-03] MEDS ORDERED: DEXTROSE 50%-WATER 50 ML DISP.SYRIN IV PRN (11:30)
[2018-11-03 12:53] LABS: ABG BASE EXCESS 4.6 mmol/L; ABG OXYGEN SATURATION 77.1 % (92.0-98.5); ABG PCO2 36.6 mmHg (35.0-45.0); ABG PO2 39.3 mmHg (75.0-100.0); AaDO2 637.1 mmHg; COHb 0.3 % (0.5-1.5); MetHb 0.4 % (0.0-1.5); O2Hb 76.6 % (94.0-97.0); SITE, ABG Right Radial; VENT MODE, BG HF 60L 100%
--- NOTE | 2018-11-03 13:14 | NUR ---
AT 1240 RT CALLED S/P PT SPO2<80%. HR STABLE, RR > 30, ACCESSORY MUSCLE USE NOTED. PULSE OX PROBE PLACEMENT CHANGED, SPO2 REMAINED <80% IN VARIOUS LOCATION. ABG ORDERED, DONE AND REPORTED. PT SX'ED AND LAVAGED TO COPIUS AMOUNTS OF THICK YELLOW/ALMENDAREZ SECRETIONS. SATURATION INSTANTLY IMPROVED, PT MORE COMFORTABLE. SPO2 CURRENTLY AT 100% ON HF 60LPM 100%. VENT AND BIPAP AVAILABLE AT BEDSIDE.
--- NOTE | 2018-11-03 16:30 | NUR ---
HYDRAULIC MECHANIC NOTE RECEIVED REPORT FROM MACEY REINOSO
--- NOTE | 2018-11-03 17:00 | NUR ---
BARBER STYLIST NOTE PATIENT SON AND DAUGHTER CAME TO VISIT, WANTED TO SPEAK WITH MD REGARDING PATIENTS STATUS. CHIEF OF PRODUCTION CHAD CAME TO SPEAK WITH FAMILY. AND FAMILY CHANGED CODE STATUS TO DNR/DNI. STATED ITS PATIENTS WISH ACCORDING TO ADVANCED DIRECTIVE. COPY LEFT IN CHART.
--- NOTE | 2018-11-03 19:25 | NUR ---
ICU/LITHOGRAPHIC PHOTOGRAPHER RECEIVED REPORT FROM DAY NURSE. SEE FLOWSHEET FOR ASSESSMENT, ALONG WITH SKIN ISSUES THAT PT MAY HAVE ALONG WITH THE INTERVENTIONS TO EACH OF THESE. PT WAS TURNED AND REPOSITIONED FOR COMFORT AND CARE. WILL CONTINUE TO MONITOR THIS PT. NO ACUTE DISTRESS SEEN AT THIS TIME. CALL LIGHT WITHIN REACH.
--- NOTE | 2018-11-03 19:32 | NUR ---
SYSTEM CONFIGURATION SPECIALIST CLOSING NOTE NO SIGNIFICANT CHANGES OVERNIGHT. PATIENT IN STABLE CONDITION AT THIS TIME. NO DISTRESS NOTED. TOLERATED GTF. F/C PATENT, INTACT, DRAINING BY GRAVITY. CONTINUITY OF CARE ENDORSED TO PM NURSE.
[2018-11-03] MEDS: risperiDONE 1 MG TABLET PO SCH (21:15)
--- NOTE | 2018-11-03 21:20 | NUR ---
ICU/CLIENT SUCCESS MANAGER PT WAS GIVEN PM CARE, ALONG WITH ORAL CARE. PT REMAINS ON CURRENT COOL AIR AEROSOL SETTINGS, WITH SATURATION AT 98-100%. PT WAS TURNED AND REPOSITIONED FOR COMFORT AND CARE. WILL CONTINUE TO MONITOR THIS PT. NO ACUTE DISTRESS SEEN AT THIS TIME
--- NOTE | 2018-11-03 23:30 | NUR ---
ICU/BACK HAND PT IS AGITATED AND COMPLAINED OF PAIN. PT WAS GIVEN TYLENOL 650MG VIA G/TUBE THEN TURNED AND REPOSITIONED FOR COMFORT AND CARE.
[2018-11-04] VITALS (24 sets, daily range): BP systolic 103–158; BP diastolic 58–89
--- NOTE | 2018-11-04 02:10 | NUR ---
ICU/RAIL CAR PAINTER/SANDBLASTER PT WAS GIVEN AM CARE, ALONG WITH ORAL CARE. PT REMAINS ON CURRENT COOL AIR AEROSOL SETTINGS, WITH SATURATION AT 98-100%. PT WAS TURNED AND REPOSITIONED FOR COMFORT AND CARE. WILL CONTINUE TO MONITOR THIS PT. NO ACUTE DISTRESS SEEN AT THIS TIME
[2018-11-04] MEDS: IPRATROPIUM NEB FS 0.5 MG/2.5 ML AMPUL.NEB NEB SCH ×5 (02:45→20:11)
[2018-11-04] MEDS: ALBUTEROL HALF STRENGTH 1.25 MG/3 ML VIAL.NEB NEB SCH ×5 (02:45→20:11)
[2018-11-04 04:52] LABS: BASOPHILS # (AUTO) 0.1 /CMM (0.0-0.2); BASOPHILS % (AUTO) 0.5 % (0.0-2.0); EOSINOPHILS % (AUTO) 3.7 % (0.0-6.0); HEMATOCRIT 31 % (39-51); HEMOGLOBIN 10.2 g/dL (13.5-17.5); LYMPHOCYTES % (AUTO) 15.2 % (20.0-44.0); MEAN CORPUSCULAR HGB CONC 33 g/dl (31.0-36.0); MEAN CORPUSCULAR VOLUME 90 fL (80-96); MONOCYTES # (AUTO) 1.2 /CMM (0.1-1.30); MONOCYTES % (AUTO) 9.3 % (2.0-12.0); NEUTROPHILS # (AUTO) 9.4 /CMM (1.8-8.9); NEUTROPHILS % (AUTO) 71.3 % (43.0-81.0); PLATELET COUNT (AUTO) 341 /CMM (150-450); RED BLOOD CELL COUNT(AUTO) 3.39 MIL/uL (4.5-6.0); WHITE BLOOD COUNT (AUTO) 13.2 K/uL (4.3-11.0)
[2018-11-04 04:58] LABS: CALCIUM, SERUM 8.8 mg/dL (8.5-10.1); CARBON DIOXIDE 31 mmol/L (21-32); CHLORIDE 105 mmol/L (98-107); CREATININE 0.9 mg/dL (0.6-1.3); GLUCOSE 165 mg/dL (74-106); POTASSIUM 3.2 mmol/L (3.5-5.1); SODIUM SERUM 141 mmol/L (136-145); UREA NITROGEN, BLOOD 11 mg/dL (7-18)
[2018-11-04] MEDS: MEROPENEM 500 MG in IV NS 0.9% 100 ML IV SCH ×3 (05:35→21:20)
[2018-11-04] MEDS: BLOOD SUGAR DIAGNOSTIC 1 EACH STRIP IN SCH ×3 (05:58→17:40)
[2018-11-04 05:59] LABS: BAND % (MANUAL) 2 % (0.0-5.0); EOSINOPHILS % (MANUAL) 2 % (0-4); LYMPHOCYTES % (MANUAL) 25 % (16-48); MONOCYTES % (MANUAL) 3 % (0-11.0); NEUTROPHILS % (MANUAL) 68 (42-76)
[2018-11-04] MEDS: ACETAMINOPHEN 325 MG TABLET PO PRN ×2 (06:00→11:47)
[2018-11-04] MEDS: INSULIN REGULAR, HUMAN 100 UNIT/ML 3 ML VIAL SQ PRN ×3 (06:00→17:42)
--- NOTE | 2018-11-04 06:25 | NUR ---
ICU/PARTS COUNTER SALESPERSON PT IS AGITATED AND COMPLAINED OF PAIN. PT WAS GIVEN TYLENOL 650MG VIA G/TUBE THEN TURNED AND REPOSITIONED FOR COMFORT AND CARE. WILL CONTINUE TO MONITOR THIS PT AND HIS PAIN LEVEL.
--- NOTE | 2018-11-04 07:00 | NUR ---
RN NOTES RECEIVED PT ON BED, A/OX2, ANSWERS TO YES OR NO QUESTIONS , ON HIGH FLOW O2 , O2 SAT 100%, AT THIS TIME, ON TELE SR HR IN 60'S , FOURNIER DRAINING TO GRAVITY WITH YELLOW URINE,L FA IV G 20 AND R FA IV G 20 SITES , CLEAN, DRY AND INTACT, GLUCERNA RUNNING VIA NGT AT 30CC/HR , TOLERATING WELL, NO RESIDUAL NOTED,SR UP x3, CALL LIGHT WITHIN EASY REACH, BED LOCKED AND IN LOWEST POSITION, CONTINUE TO MONITOR.
[2018-11-04] MEDS: DIVALPROEX SODIUM 250 MG TABLET.DR PO SCH ×3 (08:29→16:24)
[2018-11-04] MEDS: AMLODIPINE BESYLATE 5 MG TABLET PO SCH ×2 (08:30→11:36)
[2018-11-04] MEDS: DULOXETINE HCL 30 MG CAPSULE.DR PO SCH ×2 (08:30→16:24)
[2018-11-04] MEDS: BENZTROPINE MESYLATE (1 MG) 1 MG TABLET PO SCH (08:30)
[2018-11-04] MEDS: LACTOBACILLUS RHAMNOSUS GG 1 EACH CAP.SPRINK PO SCH ×2 (08:30→16:23)
[2018-11-04] MEDS: FINASTERIDE (5 MG) 5 MG TABLET PO SCH (08:31)
[2018-11-04] MEDS: hydrALAZINE HCL 25 MG TABLET PO SCH ×2 (08:31→16:24)
[2018-11-04] MEDS: ENOXAPARIN SODIUM 30 MG/0.3 ML DISP.SYRIN SQ SCH (08:32)
[2018-11-04] MEDS: risperiDONE 0.25 MG TABLET PO SCH (08:33)
[2018-11-04] MEDS: NEXIUM 40 MG VIAL IV SCH ×2 (08:34→21:17)
[2018-11-04] MEDS: MUPIROCIN OINT 2% 22 GM TUBE SCH ×2 (08:35→21:18)
[2018-11-04] MEDS: METOPROLOL TARTRATE 50 MG TABLET PO SCH ×2 (08:35→16:24)
[2018-11-04] MEDS: Z GUARD REMEDY 2 OZ OINT TP SCH (08:37)
[2018-11-04] MEDS: HYDROGEL DRESSING 90 GM TUBE TP SCH (08:38)
--- NOTE | 2018-11-04 11:00 | NUR ---
RN NOTES PT STABLE, CONTINUE TO MONITOR.
[2018-11-04] MEDS: POTASSIUM CHLORIDE 20 MEQ POWDER PACKET NG SCH ×2 (11:48→12:44)
[2018-11-04] MEDS: VANCOMYCIN 1.25 GM in IV D5W 500 ML IV SCH (13:24)
--- NOTE | 2018-11-04 14:07 | NUR ---
ICU/ICE HANDLER OF CARE PT ENDORSED BY ICU NURSE SARAH TO CONTINUE CARE. RECEIVED PT ASLEEP COMFORTABLY, ON HIGH FLOW RATES SET PRESCRIBED, SATURATING WELL @ 100%, RESPIRATIONS EVEN & UNLABORED. SINUS ALIZA, HR 59. WITH ON GOING IV INFUSION OF VANCOMYCIN AND MERREM, IV SITES PATENT WITH NO S/S OF INFECTION. NGT ON LEFT NARE INTACT FEEDING ON GOING @ 30CC/HR, NO GASTRIC RESIDUAL NOTED. FOURNIER CATHETER INTACT WITH YELLOW URINE OUTPUT. RIGHT HAND MITTEN IN PLACED, DVT SLEEVES IN PLACED. CL WITHIN REACHED, SAFETY MAINTAINED AND ISOLATION OBSERVED. ON GOING MONITORING.
--- NOTE | 2018-11-04 14:11 | NUR ---
RN NOTES REPORT GIVEN TO CECILIA CHOUDHURY FOR CONTINUITY OF CARE .
[2018-11-04] MEDS: ACETYLCYSTEINE 10% SOLN 400 MG/4 ML VIAL NEB SCH (15:29)
--- NOTE | 2018-11-04 15:45 | NUR ---
ICU/RN ROUNDS - JAIME SPEAR PT SEEN & EXAMINED BY JAIME SPEAR AT BEDSIDE WITH PT'S SON PRESENT, UPDATING PT'S CONDITION. NO NEW ORDER RECEIVED AT THIS TIME.
--- NOTE | 2018-11-04 17:30 | NUR ---
ICU/RN AFTERNOON ROUNDS PM CARE PROVIDED, PT INTERMITTENTLY AWAKE, ANSWERS QUESTIONS APPROPRIATELY, CALM. NO ACUTE RESPIRATORY DISTRESS NOTED. ON GOING MONITORING.
--- NOTE | 2018-11-04 17:35 | NUR ---
ICU/RN ROUNDS - JAIME MONIQUE UPDATED PT'S CONDITION. PT SEEN & EXAMINED BY JAIME MONIQUE, NO NEW ORDER RECEIVED AT THIS TIME. MONITORING CONTINUED.
--- NOTE | 2018-11-04 19:07 | NUR ---
ICU/RN AM SHIFT END NOTES NO ACUTE CHANGE OF CONDITION NOTED SINCE CARE WAS ENDORSED THIS AFTERNOON, ALL NEEDS MET. PT ENDORSED TO PM NURSE TO CONTINUE CARE. CL WITHIN REACHED, SAFETY MAINTAINED AND ISOLATION OBSERVED.
[2018-11-04] MEDS: risperiDONE 1 MG TABLET PO SCH (21:17)
[2018-11-05] VITALS (24 sets, daily range): BP systolic 110–152; BP diastolic 55–84
[2018-11-05] MEDS: ALBUTEROL HALF STRENGTH 1.25 MG/3 ML VIAL.NEB NEB SCH ×7 (00:18→23:22)
[2018-11-05] MEDS: ACETYLCYSTEINE 10% SOLN 400 MG/4 ML VIAL NEB SCH ×4 (00:18→23:22)
[2018-11-05] MEDS: IPRATROPIUM NEB FS 0.5 MG/2.5 ML AMPUL.NEB NEB SCH ×7 (00:18→23:22)
[2018-11-05] MEDS: BLOOD SUGAR DIAGNOSTIC 1 EACH STRIP IN SCH ×5 (00:31→23:26)
[2018-11-05] MEDS: INSULIN REGULAR, HUMAN 100 UNIT/ML 3 ML VIAL SQ PRN ×5 (00:53→23:27)
[2018-11-05] MEDS: ACETAMINOPHEN 325 MG TABLET PO PRN (02:36)
--- NOTE | 2018-11-05 02:40 | NUR ---
STERILE PROCESS TECH PT NOTED TO BE IN PAIN; TYLENOL ADMINISTERED NEEDED. CONTINUE TO MONITOR.
[2018-11-05] MEDS: MEROPENEM 500 MG in IV NS 0.9% 100 ML IV SCH ×3 (04:00→21:01)
[2018-11-05 05:11] LABS: CALCIUM, SERUM 8.9 mg/dL (8.5-10.1); CARBON DIOXIDE 34 mmol/L (21-32); CHLORIDE 101 mmol/L (98-107); CREATININE 0.8 mg/dL (0.6-1.3); GLUCOSE 186 mg/dL (74-106); POTASSIUM 3.4 mmol/L (3.5-5.1); SODIUM SERUM 140 mmol/L (136-145); UREA NITROGEN, BLOOD 12 mg/dL (7-18)
--- NOTE | 2018-11-05 06:33 | NUR ---
BUCKLE STAPLER ATTEMPTED TO REDUCE HI FLOW THERAPY BUT PT NOTED IN DISTRESS READJUSTED TO 90%. WOUND CARE DONE ORDERED. CONTINUE TO MONITOR.
[2018-11-05 08:03] LABS: BASOPHILS # (AUTO) 0.1 /CMM (0.0-0.2); BASOPHILS % (AUTO) 0.6 % (0.0-2.0); EOSINOPHILS % (AUTO) 3.6 % (0.0-6.0); HEMATOCRIT 30 % (39-51); HEMOGLOBIN 9.8 g/dL (13.5-17.5); LYMPHOCYTES # (AUTO) 1.8 /CMM (0.8-4.8); LYMPHOCYTES % (AUTO) 13.8 % (20.0-44.0); MEAN CORPUSCULAR HGB CONC 33 g/dl (31.0-36.0); MEAN CORPUSCULAR VOLUME 91 fL (80-96); MONOCYTES # (AUTO) 1.2 /CMM (0.1-1.30); MONOCYTES % (AUTO) 9.2 % (2.0-12.0); NEUTROPHILS # (AUTO) 9.6 /CMM (1.8-8.9); NEUTROPHILS % (AUTO) 72.8 % (43.0-81.0); PLATELET COUNT (AUTO) 346 /CMM (150-450); RED BLOOD CELL COUNT(AUTO) 3.26 MIL/uL (4.5-6.0); WHITE BLOOD COUNT (AUTO) 13.2 K/uL (4.3-11.0)
[2018-11-05] MEDS: LACTOBACILLUS RHAMNOSUS GG 1 EACH CAP.SPRINK PO SCH ×2 (08:11→16:15)
[2018-11-05] MEDS: hydrALAZINE HCL 25 MG TABLET PO SCH ×2 (08:11→16:15)
[2018-11-05] MEDS: DULOXETINE HCL 30 MG CAPSULE.DR PO SCH ×2 (08:11→16:14)
[2018-11-05] MEDS: FINASTERIDE (5 MG) 5 MG TABLET PO SCH (08:11)
[2018-11-05] MEDS: DIVALPROEX SODIUM 250 MG TABLET.DR PO SCH (08:11)
[2018-11-05] MEDS: VANCOMYCIN 1.25 GM in IV D5W 500 ML IV SCH (08:11)
[2018-11-05] MEDS: BENZTROPINE MESYLATE (1 MG) 1 MG TABLET PO SCH (08:12)
[2018-11-05] MEDS: METOPROLOL TARTRATE 50 MG TABLET PO SCH ×2 (08:12→16:17)
[2018-11-05] MEDS: AMLODIPINE BESYLATE 5 MG TABLET PO SCH (08:13)
[2018-11-05] MEDS: Z GUARD REMEDY 2 OZ OINT TP SCH (08:14)
[2018-11-05] MEDS: ENOXAPARIN SODIUM 30 MG/0.3 ML DISP.SYRIN SQ SCH (08:14)
[2018-11-05] MEDS: HYDROGEL DRESSING 90 GM TUBE TP SCH (08:15)
[2018-11-05 08:24] LABS: BAND % (MANUAL) 3 % (0.0-5.0); EOSINOPHILS % (MANUAL) 3 % (0-4); LYMPHOCYTES % (MANUAL) 12 % (16-48); METAMYELOCYTES % 2 % (0-0); MONOCYTES % (MANUAL) 12 % (0-11.0); NEUTROPHILS % (MANUAL) 68 (42-76)
[2018-11-05] MEDS: NEXIUM 40 MG VIAL IV SCH ×2 (08:24→20:57)
[2018-11-05] MEDS: MUPIROCIN OINT 2% 22 GM TUBE SCH ×2 (08:24→20:57)
--- NOTE | 2018-11-05 10:00 | NUR ---
ICU/RN: S/B Jose J Wolfe, updated on pt status. No distress. Orders noted and carried out.
[2018-11-05] MEDS ORDERED: POTASSIUM CHLORIDE 20 MEQ POWDER PACKET GT SCH (10:30)
[2018-11-05] MEDS: DIVALPROEX SODIUM 125 MG CAP.SPRINK PO SCH ×2 (12:08→16:15)
[2018-11-05] MEDS: GLUCERNA 1.2 1,000 ML BOTTLE NG PRN (12:18)
--- NOTE | 2018-11-05 15:00 | NUR ---
ICU/RN: S/B Dr Hernandez. Orders noted and carried out. Pt to receive CPT.
--- NOTE | 2018-11-05 15:30 | NUR ---
ICU/RN: Bed bath, wound care rendered. Large brown BM noted. Tolerated well.
[2018-11-05] MEDS: SPIRONOLACTONE 25 MG TABLET PO SCH (16:15)
--- NOTE | 2018-11-05 18:30 | NUR ---
ICU/RN: Pt comfortable in bed, no distress. On high flow O2; 60L/min, 70% FiO2. Tolerating TF well. FC draining to gravity. SB to SR 60's on monitor.
--- NOTE | 2018-11-05 20:00 | NUR ---
Received patient awake and follows simple commands.Appears comfortable in bed on HI Flow O2 60L,FIO2 70% with SPO2 99%.Respiration even and unlabored.SB's hi 50's/ SR 60's.VS stable.Hemodynamically stable.Denies pain or any discomfort.L NGT feeding in progress with HOB elevated 45%.NGT placement verified with residual 30 ml.FC to gravity.Contact isolation precaution observed.Will turn and repositioned Q 2 HRS.
[2018-11-05] MEDS: risperiDONE 1 MG TABLET PO SCH (21:53)
[2018-11-06] VITALS (24 sets, daily range): BP systolic 115–155; BP diastolic 57–86
[2018-11-06] MEDS: VANCOMYCIN 1.25 GM in IV D5W 500 ML IV SCH ×2 (01:01→18:05)
[2018-11-06] MEDS: ALBUTEROL HALF STRENGTH 1.25 MG/3 ML VIAL.NEB NEB SCH ×5 (02:47→20:05)
[2018-11-06] MEDS: IPRATROPIUM NEB FS 0.5 MG/2.5 ML AMPUL.NEB NEB SCH ×5 (02:47→20:05)
[2018-11-06 04:36] LABS: BASOPHILS % (AUTO) 0.4 % (0.0-2.0); EOSINOPHILS % (AUTO) 3.3 % (0.0-6.0); HEMATOCRIT 29 % (39-51); HEMOGLOBIN 9.8 g/dL (13.5-17.5); LYMPHOCYTES # (AUTO) 2.1 /CMM (0.8-4.8); LYMPHOCYTES % (AUTO) 19.8 % (20.0-44.0); MEAN CORPUSCULAR HGB CONC 34 g/dl (31.0-36.0); MEAN CORPUSCULAR VOLUME 91 fL (80-96); MONOCYTES # (AUTO) 1.2 /CMM (0.1-1.30); MONOCYTES % (AUTO) 10.7 % (2.0-12.0); NEUTROPHILS # (AUTO) 7.1 /CMM (1.8-8.9); NEUTROPHILS % (AUTO) 65.8 % (43.0-81.0); PLATELET COUNT (AUTO) 352 /CMM (150-450); RED BLOOD CELL COUNT(AUTO) 3.22 MIL/uL (4.5-6.0); WHITE BLOOD COUNT (AUTO) 10.8 K/uL (4.3-11.0)
[2018-11-06 04:51] LABS: CALCIUM, SERUM 8.8 mg/dL (8.5-10.1); CARBON DIOXIDE 34 mmol/L (21-32); CHLORIDE 98 mmol/L (98-107); CREATININE 0.9 mg/dL (0.6-1.3); GLUCOSE 235 mg/dL (74-106); MAGNESIUM 1.6 mg/dL (1.8-2.4); POTASSIUM 3.6 mmol/L (3.5-5.1); SODIUM SERUM 137 mmol/L (136-145); UREA NITROGEN, BLOOD 13 mg/dL (7-18)
[2018-11-06] MEDS: MEROPENEM 500 MG in IV NS 0.9% 100 ML IV SCH ×3 (05:00→21:10)
[2018-11-06] MEDS: BLOOD SUGAR DIAGNOSTIC 1 EACH STRIP IN SCH ×3 (05:56→17:19)
[2018-11-06] MEDS: INSULIN REGULAR, HUMAN 100 UNIT/ML 3 ML VIAL SQ PRN ×3 (05:58→17:21)
--- NOTE | 2018-11-06 06:00 | NUR ---
Patient resting appears comfortable.VS remains stable.SR/SB.Tolerating feeding well with adequate urine output.Bathed and complete linens changed.Turned and repositioned.All due medications administered.All needs anticipated and met.No significant change noted all throughout the shift.Family wants to be called by MAC OPERATOR,Jose J Wolfe when he is here. Will endorse to day shift for continuity of care.
[2018-11-06] MEDS: ACETYLCYSTEINE 10% SOLN 400 MG/4 ML VIAL NEB SCH ×2 (07:35→15:28)
[2018-11-06] MEDS: hydrALAZINE HCL 25 MG TABLET PO SCH ×2 (08:17→16:36)
[2018-11-06] MEDS: FINASTERIDE (5 MG) 5 MG TABLET PO SCH (08:17)
[2018-11-06] MEDS: DULOXETINE HCL 30 MG CAPSULE.DR PO SCH ×2 (08:17→16:36)
[2018-11-06] MEDS: LACTOBACILLUS RHAMNOSUS GG 1 EACH CAP.SPRINK PO SCH ×2 (08:17→16:36)
[2018-11-06] MEDS: NEXIUM 40 MG VIAL IV SCH ×2 (08:17→21:11)
[2018-11-06] MEDS: AMLODIPINE BESYLATE 5 MG TABLET PO SCH (08:18)
[2018-11-06] MEDS: SPIRONOLACTONE 25 MG TABLET PO SCH (08:18)
[2018-11-06] MEDS: METOPROLOL TARTRATE 50 MG TABLET PO SCH ×2 (08:18→16:23)
[2018-11-06] MEDS: DIVALPROEX SODIUM 125 MG CAP.SPRINK PO SCH ×3 (08:18→16:36)
[2018-11-06] MEDS: BENZTROPINE MESYLATE (1 MG) 1 MG TABLET PO SCH (08:18)
[2018-11-06] MEDS: MUPIROCIN OINT 2% 22 GM TUBE SCH ×2 (08:19→21:16)
[2018-11-06] MEDS: Z GUARD REMEDY 2 OZ OINT TP SCH (08:19)
[2018-11-06] MEDS: HYDROGEL DRESSING 90 GM TUBE TP SCH (08:19)
[2018-11-06] MEDS: ENOXAPARIN SODIUM 30 MG/0.3 ML DISP.SYRIN SQ SCH (08:25)
[2018-11-06] MEDS: Magnesium 1GM/D5W 100ML PREMIX 100 ML IV SCH ×2 (09:34→10:39)
--- NOTE | 2018-11-06 10:10 | NUR ---
RN NOTE 0715: Received patient awake, able to follow commands. With left NGT intact, GT feeding tolerated well, on 45mL/hr. With PIVs intact. Bone cath intact, noted with clear pale yellow urine drained to BSD. With On high flow cannula @ 70% FIO2. 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 Bilateral mittens on for safety, with episode of trying to pull out tubings at times, will continue to monitor. 0845: S/E by Dr. Hernandez, titrated FIO2 to 60% at this time. Made RT aware. 1010: No any significant changes noted at this time. Kept clean, warm and dry. Needs attended.
[2018-11-06] MEDS: GLUCERNA 1.2 1,000 ML BOTTLE NG PRN (10:42)
--- NOTE | 2018-11-06 19:25 | NUR ---
ICU/TRAIN RESERVATION CLERK RECEIVED REPORT FROM DAY NURSE. SEE FLOWSHEET FOR ASSESSMENT, ALONG WITH SKIN ISSUES THAT PT MAY HAVE ALONG WITH THE INTERVENTIONS TO EACH OF THESE. PT WAS TURNED AND REPOSITIONED FOR COMFORT AND CARE. WILL CONTINUE TO MONITOR THIS PT. NO ACUTE DISTRESS SEEN AT THIS TIME.
--- NOTE | 2018-11-06 20:45 | NUR ---
ICU/SALES OFFICE MANAGER UPON COMPLETING THE BREATHING TREATMENT, CPT WAS DONE TO THE LEFT SIDE OF THE CHEST DUE TO XRAY DONE ON NOVEMBER 05 WHICH SHOWED WHITE OUT.
[2018-11-06] MEDS: risperiDONE 1 MG TABLET PO SCH (21:15)
[2018-11-06] MEDS: DOXYCYCLINE HYCLATE (100 MG) 100 MG TABLET PO SCH (21:15)
--- NOTE | 2018-11-06 22:00 | NUR ---
ICU/STREET OPENINGS INSPECTOR PT GIVEN PM CARE, ALONG WITH ORAL CARE. PT REMAINS ON CURRENT COOL AIR AEROSOL SETTINGS, WITH SATURATION AT 98-99%. PT WAS TURNED AND REPOSITIONED FOR COMFORT AND CARE, PT WILL DESAT WHEN POSITIONED ON LEFT SIDE DUE TO WHITEOUT OF LEFT LUNG. WILL CONTINUE TO MONITOR THIS PT. NO ACUTE DISTRESS SEEN AT THIS TIME
--- NOTE | 2018-11-06 23:30 | NUR ---
ICU/VIDEO CONFERENCE SPECIALIST PT'S MIDNIGHT BLOOD SUGAR IS 217, THIS WAS COVERED WITH THE SLIDING SCALE ORDERED BY MD AND HOSPITAL PROTOCOL. WILL CONTINUE TO MONITOR THIS PT'S SUGAR. PT WAS TUNED AND REPOSITIONED FOR COMFORT AND CARE. NO ACUTE DISTRESS SEEN AT THIS TIME.
[2018-11-07] VITALS (23 sets, daily range): BP systolic 98–162; BP diastolic 47–78
[2018-11-07] MEDS: BLOOD SUGAR DIAGNOSTIC 1 EACH STRIP IN SCH ×4 (00:30→17:03)
[2018-11-07] MEDS: INSULIN REGULAR, HUMAN 100 UNIT/ML 3 ML VIAL SQ PRN ×4 (00:31→17:45)
[2018-11-07] MEDS: ACETAMINOPHEN 325 MG TABLET PO PRN ×2 (00:32→08:23)
--- NOTE | 2018-11-07 00:45 | NUR ---
ICU/OPTICAL COATING TECHNICIAN PT COMPLAINED OF PAIN. PT WAS GIVEN TYLENOL 650MG VIA G/TUBE THEN TURNED AND REPOSITIONED FOR COMFORT AND CARE. WILL CONTINUE TO MONITOR THIS PT.
[2018-11-07] MEDS: ALBUTEROL HALF STRENGTH 1.25 MG/3 ML VIAL.NEB NEB SCH ×7 (00:54→23:34)
[2018-11-07] MEDS: ACETYLCYSTEINE 10% SOLN 400 MG/4 ML VIAL NEB SCH ×4 (00:54→23:34)
[2018-11-07] MEDS: IPRATROPIUM NEB FS 0.5 MG/2.5 ML AMPUL.NEB NEB SCH ×7 (00:54→23:34)
--- NOTE | 2018-11-07 02:08 | NUR ---
ICU/GAS SINGER PT GIVEN AM CARE, ALONG WITH ORAL CARE. PT REMAINS ON CURRENT COOL AIR AEROSOL SETTINGS, WITH SATURATION AT 98-99%. PT WAS TURNED AND REPOSITIONED FOR COMFORT AND CARE, PT WILL DESAT WHEN POSITIONED ON LEFT SIDE DUE TO WHITEOUT OF LEFT LUNG. WILL CONTINUE TO MONITOR THIS PT. NO ACUTE DISTRESS SEEN AT THIS TIME
--- NOTE | 2018-11-07 04:20 | NUR ---
ICU/ASSET SPECIALIST AM LABS WERE DONE, AWAIT FOR ANY ABNORMAL RESULTS.
[2018-11-07 05:03] LABS: CALCIUM, SERUM 8.8 mg/dL (8.5-10.1); CARBON DIOXIDE 35 mmol/L (21-32); CHLORIDE 101 mmol/L (98-107); CREATININE 0.9 mg/dL (0.6-1.3); GLUCOSE 164 mg/dL (74-106); MAGNESIUM 1.9 mg/dL (1.8-2.4); POTASSIUM 3.6 mmol/L (3.5-5.1); SODIUM SERUM 138 mmol/L (136-145); UREA NITROGEN, BLOOD 14 mg/dL (7-18)
[2018-11-07] MEDS: MEROPENEM 500 MG in IV NS 0.9% 100 ML IV SCH ×3 (05:10→22:02)
--- NOTE | 2018-11-07 06:10 | NUR ---
ICU/BUSINESS INVESTOR PT'S MIDNIGHT BLOOD SUGAR IS 165, THIS WAS COVERED WITH THE SLIDING SCALE ORDERED BY MD AND HOSPITAL PROTOCOL. WILL CONTINUE TO MONITOR THIS PT'S SUGAR. PT WAS TUNED AND REPOSITIONED FOR COMFORT AND CARE. NO ACUTE DISTRESS SEEN AT THIS TIME.
--- NOTE | 2018-11-07 07:30 | NUR ---
RECEIVED PATIENT FROM ORTHODONTISTKaty OLIVEIRA. PATIENT AWAKE, CONFUSED, SAYS YES/NO TO SIMPLE QUESTIONS AND AT TIMES FOLLOWS COMMANDS. PATIENT ON HIGH FLOW NC TOLERATING WELL WITHOUT SOB OR DIFFICULTY BREATHING. PATIENT WITH FOURNIER CATH TO GRAVITY PATENT. IV SITES C/D/I/P. SKIN, SAFETY, ASPIRATION, AND ISOLATION PRECAUTIONS IN PLACE AND WILL MONITOR.
[2018-11-07] MEDS: NEXIUM 40 MG VIAL IV SCH ×2 (08:13→22:26)
[2018-11-07] MEDS: FINASTERIDE (5 MG) 5 MG TABLET PO SCH (08:13)
[2018-11-07] MEDS: DULOXETINE HCL 30 MG CAPSULE.DR PO SCH ×2 (08:14→17:02)
[2018-11-07] MEDS: LACTOBACILLUS RHAMNOSUS GG 1 EACH CAP.SPRINK PO SCH ×2 (08:14→17:02)
[2018-11-07] MEDS: SPIRONOLACTONE 25 MG TABLET PO SCH (08:14)
[2018-11-07] MEDS: DIVALPROEX SODIUM 125 MG CAP.SPRINK PO SCH ×3 (08:14→17:02)
[2018-11-07] MEDS: METOPROLOL TARTRATE 50 MG TABLET PO SCH ×2 (08:15→17:56)
[2018-11-07] MEDS: DOXYCYCLINE HYCLATE (100 MG) 100 MG TABLET PO SCH ×2 (08:15→22:25)
[2018-11-07] MEDS: BENZTROPINE MESYLATE (1 MG) 1 MG TABLET PO SCH (08:15)
[2018-11-07] MEDS: AMLODIPINE BESYLATE 5 MG TABLET PO SCH (08:17)
[2018-11-07] MEDS: hydrALAZINE HCL 25 MG TABLET PO SCH ×2 (08:17→17:02)
[2018-11-07] MEDS: Z GUARD REMEDY 2 OZ OINT TP SCH (08:17)
[2018-11-07] MEDS: HYDROGEL DRESSING 90 GM TUBE TP SCH (08:18)
[2018-11-07] MEDS: ENOXAPARIN SODIUM 30 MG/0.3 ML DISP.SYRIN SQ SCH (08:19)
[2018-11-07] MEDS: MUPIROCIN OINT 2% 22 GM TUBE SCH ×3 (08:20→22:26)
[2018-11-07] MEDS: GLUCERNA 1.2 1,000 ML BOTTLE NG PRN (08:24)
--- NOTE | 2018-11-07 08:25 | NUR ---
PRN TYLENOL GIVEN PATIENT APPEARS UNCOMFORTABLE. GRIMACING AND MOANING WITH ANY MOVEMENT AND REPOSITIONING WITH INCREASED RR
--- NOTE | 2018-11-07 10:10 | NUR ---
DR MCKAY AT BEDSIDE. UPDATED ON PATIENT CONDITION. NO NEW ORDERS AT THIS TIME
--- NOTE | 2018-11-07 12:00 | NUR ---
patient awake and alert. denies pain or sob. tolerating nasal cannula without complications noted.
[2018-11-07] MEDS: Z GUARD REMEDY 2 OZ OINT TP PRN ×2 (12:06→17:03)
--- NOTE | 2018-11-07 15:06 | NUR ---
patient more alert today. speaking sentences. cough and gag reflex present and able to hold his head up. speech therapy at bedside to try another swallow eval.
--- NOTE | 2018-11-07 15:32 | NUR ---
notified dr daniels patient passed swallow eval. per recc okay for pureed and nectar thick diet. ok to order per
--- NOTE | 2018-11-07 18:24 | NUR ---
report given to ty perez for opal bed 102 Addendum: 11/07/18 at 1825 by SABINO KAISER RN patient ate 100% of dinner without difficulty
--- NOTE | 2018-11-07 18:26 | NUR ---
per Dr. Shore continue tube feeding order clinton
--- NOTE | 2018-11-07 18:45 | NUR ---
nole rn notes pt transferred to room 102 from icu. pt belongings brought with pt. pt oriented to name. pt on 4l nc o2 sat wnl. no s/sx of resp distress. on kci mattress. ngt in place. feeding running at 60ml/hr. r hand mitten in place. iv site lac/rac in place/patent. on tele sb 50's. fc in place draining clear yellow urine. bed in locked/low position. call light in reach. will endorse to pm nurse for florencia.
--- NOTE | 2018-11-07 18:57 | NUR ---
patient transferred to bed 102 in stable condition care endorsed to chris crawford for florencia. all due meds given and all needs met. patient a/ox1 conversive and speaking full sentences. tolerating low flow nc without distress. osorio cath to gravity. iv sites c/d/i/p. skin, safety, aspiration, and isolation precautions all in place and monitored throughout the day.
--- NOTE | 2018-11-07 19:05 | NUR ---
DAISY RN INITIAL NOTES RECEIVED PATIENT AWAKE, A/OX1. ON TELE MONITOR SINUS CANDICE WITH HR 56. ON OXYGEN 4L VIA NC, NO RESPIRATORY OR CARDIAC DISTRESS NOTED. ON KCI MATTRESS. NGT IN PLACE, FEEDING RUNNING AT 60ML/HR. R HAND MITTEN NOTED AND IN PLACE, PER REPORT PATIENT PULLS OUT TUBES. ALSO PER REPORT, PATIENT PASSED SWALLOW EVAL AND ON PUREED HONEY THICK DIABETIC DIET AND PT SWALLOWS SLOW. IV SITE LEFT AC AND RIGHT AC IN PLACE, BOTH FLUSHING AND INTACT. FC IN PLACE AND OFF THE FLOOR, DRAINING WELL. SAFETY MEASURES IN PLACE; HOB ELEVATED, CALL LIGHT WITHIN REACH, BED LOCKED AND IN LOW POSITION. WILL CONT TO MONITOR PT CLOSELY. 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
[2018-11-07] MEDS: risperiDONE 1 MG TABLET PO SCH (22:25)
[2018-11-08] VITALS: BP 130/61
[2018-11-08] MEDS: BLOOD SUGAR DIAGNOSTIC 1 EACH STRIP IN SCH ×3 (00:45→12:20)
[2018-11-08] MEDS: INSULIN REGULAR, HUMAN 100 UNIT/ML 3 ML VIAL SQ PRN ×3 (01:24→12:28)
[2018-11-08] MEDS: ALBUTEROL HALF STRENGTH 1.25 MG/3 ML VIAL.NEB NEB SCH ×3 (03:56→11:03)
[2018-11-08] MEDS: IPRATROPIUM NEB FS 0.5 MG/2.5 ML AMPUL.NEB NEB SCH ×3 (03:56→11:03)
[2018-11-08 04:00] VITALS: BP 139/66
[2018-11-08] MEDS: GLUCERNA 1.2 1,000 ML BOTTLE NG PRN (04:23)
[2018-11-08] MEDS: ACETAMINOPHEN 325 MG TABLET PO PRN (05:01)
[2018-11-08] MEDS: MEROPENEM 500 MG in IV NS 0.9% 100 ML IV SCH ×2 (05:02→12:20)
[2018-11-08 06:25] LABS: BASOPHILS # (AUTO) 0.1 /CMM (0.0-0.2); BASOPHILS % (AUTO) 0.7 % (0.0-2.0); HEMATOCRIT 27 % (39-51); HEMOGLOBIN 9.1 g/dL (13.5-17.5); LYMPHOCYTES # (AUTO) 2.2 /CMM (0.8-4.8); LYMPHOCYTES % (AUTO) 23.2 % (20.0-44.0); MEAN CORPUSCULAR HGB CONC 34 g/dl (31.0-36.0); MEAN CORPUSCULAR VOLUME 90 fL (80-96); MONOCYTES # (AUTO) 0.9 /CMM (0.1-1.30); MONOCYTES % (AUTO) 8.9 % (2.0-12.0); NEUTROPHILS % (AUTO) 62.2 % (43.0-81.0); PLATELET COUNT (AUTO) 385 /CMM (150-450); RED BLOOD CELL COUNT(AUTO) 3.01 MIL/uL (4.5-6.0); WHITE BLOOD COUNT (AUTO) 9.7 K/uL (4.3-11.0)
[2018-11-08 06:53] LABS: CARBON DIOXIDE 33 mmol/L (21-32); CHLORIDE 101 mmol/L (98-107); CREATININE 0.9 mg/dL (0.6-1.3); GLUCOSE 173 mg/dL (74-106); POTASSIUM 3.8 mmol/L (3.5-5.1); SODIUM SERUM 141 mmol/L (136-145); UREA NITROGEN, BLOOD 15 mg/dL (7-18)
[2018-11-08] MEDS: ACETYLCYSTEINE 10% SOLN 400 MG/4 ML VIAL NEB SCH (07:09)
--- NOTE | 2018-11-08 07:15 | NUR ---
DAISY RN CLOSING NOTES PATIENT SLEEPING, BUT EASY TO AROUSE; A/OX1. ON TELE MONITOR SR WITH HR 60. ON OXYGEN 4L VIA NC, NO RESPIRATORY OR CARDIAC DISTRESS NOTED. SATURATION 97%. ON KCI MATTRESS. NGT IN PLACE, FEEDING RUNNING AT 60ML/HR. R HAND MITTEN NOTED AND IN PLACE FOR PATIENT SAFETY. IV SITE LEFT AC AND RIGHT AC IN PLACE, BOTH FLUSHING AND INTACT. FC IN PLACE AND OFF THE FLOOR, DRAINING WELL. SAFETY MEASURES IN PLACE; HOB ELEVATED, CALL LIGHT WITHIN REACH, BED LOCKED AND IN LOW POSITION. TURNED AND REPOSITIONED Q2H. ALL MD ORDERS ATTENDED, ALL NEEDS ANTICIPATED AND MET. ENDORSED TO AM RN FOR REINIER.
[2018-11-08 08:00] VITALS: BP 119/62
[2018-11-08 08:00] LABS: EOSINOPHILS % (MANUAL) 4 % (0-4); LYMPHOCYTES % (MANUAL) 24 % (16-48); MONOCYTES % (MANUAL) 11 % (0-11.0); NEUTROPHILS % (MANUAL) 61 (42-76)
[2018-11-08] MEDS: DIVALPROEX SODIUM 125 MG CAP.SPRINK PO SCH ×2 (08:57→12:20)
[2018-11-08] MEDS: LACTOBACILLUS RHAMNOSUS GG 1 EACH CAP.SPRINK PO SCH (08:57)
[2018-11-08] MEDS: DOXYCYCLINE HYCLATE (100 MG) 100 MG TABLET PO SCH (08:57)
[2018-11-08] MEDS: DULOXETINE HCL 30 MG CAPSULE.DR PO SCH (08:57)
[2018-11-08] MEDS: FINASTERIDE (5 MG) 5 MG TABLET PO SCH (08:57)
[2018-11-08] MEDS: hydrALAZINE HCL 25 MG TABLET PO SCH (08:58)
[2018-11-08] MEDS: METOPROLOL TARTRATE 50 MG TABLET PO SCH (08:59)
[2018-11-08] MEDS: AMLODIPINE BESYLATE 5 MG TABLET PO SCH (08:59)
[2018-11-08] MEDS: ENOXAPARIN SODIUM 30 MG/0.3 ML DISP.SYRIN SQ SCH (09:00)
[2018-11-08] MEDS: HYDROGEL DRESSING 90 GM TUBE TP SCH (09:01)
[2018-11-08] MEDS: Z GUARD REMEDY 2 OZ OINT TP SCH (09:01)
[2018-11-08] MEDS: MUPIROCIN OINT 2% 22 GM TUBE SCH (09:02)
[2018-11-08] MEDS: SPIRONOLACTONE 25 MG TABLET PO SCH (09:02)
[2018-11-08] MEDS: NEXIUM 40 MG VIAL IV SCH (09:04)
[2018-11-08] MEDS: BENZTROPINE MESYLATE (1 MG) 1 MG TABLET PO SCH (09:05)
--- NOTE | 2018-11-08 09:34 | NUR ---
received pt from table games shift manager, alert x1, follows simple commands, SR, SB, on 4L 02 sat well, lungs partially congested, some edema, NG to feeding, tolerates well, f/c good output, mitten on R hand, v/s stable, no pain, pt turned and repositioned.
[2018-11-08] MEDS ORDERED: DOXY100T2 PO (09:55)
[2018-11-08] MEDS ORDERED: SPIR25TA PO (09:55)
[2018-11-08] MEDS ORDERED: MERO500V IV (09:55)
[2018-11-08 12:00] VITALS: BP 138/71
--- NOTE | 2018-11-08 15:40 | NUR ---
pt transferred to [facility] by paramedics, v/s stable, no pain, packaged with all pt's information and D/C instructions given to paramedics.
== END 2018-11-08 15:35 | DRG 871 ==
LOC: ER 14:38 → TELE-TD 17:43 → TELE1 20:51 → ICU 10-30 10:07 → TELE-TD 11-07 18:45 → TELE1 11-08 11:10
PROVIDERS: ADMIT Nurse Practitioner Acute Care; ATTEND Family Medicine
DX: A41.9 Sepsis, unspecified organism (principal); N17.0 Acute kidney failure with tubular necrosis; G92 Toxic encephalopathy; J96.01 Acute respiratory failure with hypoxia; J15.9 Unspecified bacterial pneumonia; N39.0 Urinary tract infection, site not specified; E87.2 Acidosis; E44.0 Moderate protein-calorie malnutrition; D68.59 Other primary thrombophilia; J98.11 Atelectasis; Z86.73 Personal history of transient ischemic attack (TIA), and cerebral infarction without residual deficits; I10 Essential (primary) hypertension; F03.90 Unspecified dementia, unspecified severity, without behavioral disturbance, psychotic disturbance, mood disturbance, and anxiety; B96.20 Unspecified Escherichia coli [E. coli] as the cause of diseases classified elsewhere; E87.6 Hypokalemia; E86.0 Dehydration; N40.0 Benign prostatic hyperplasia without lower urinary tract symptoms; Z66 Do not resuscitate; Z87.891 Personal history of nicotine dependence; Z87.440 Personal history of urinary (tract) infections; D63.8 Anemia in other chronic diseases classified elsewhere; R65.20 Severe sepsis without septic shock; Z79.4 Long term (current) use of insulin; E11.65 Type 2 diabetes mellitus with hyperglycemia; E88.09 Other disorders of plasma-protein metabolism, not elsewhere classified; M62.50 Muscle wasting and atrophy, not elsewhere classified, unspecified site; Z16.12 Extended spectrum beta lactamase (ESBL) resistance; Z68.30 Body mass index [BMI] 30.0-30.9, adult; Z22.322 Carrier or suspected carrier of Methicillin resistant Staphylococcus aureus; T17.990A Other foreign object in respiratory tract, part unspecified in causing asphyxiation, initial encounter; X58.XXXA Exposure to other specified factors, initial encounter; Y93.9 Activity, unspecified; Y92.129 Unspecified place in nursing home as the place of occurrence of the external cause; R13.10 Dysphagia, unspecified
CPT/HCPCS: 31720; 36415; 36600; 71045-TC; 80048-TC; 80061-TC; 80076-TC; 80202-TC; 81000-TC; 82140-TC; 82803-TC; 82962-TC; 83605-TC; 83735-TC; 84100-TC; 84443-TC; 84484-TC; 85025-TC; 85730-TC; 87040-TC; 87081-TC; 87086-TC; 87186-TC; 92526; 92611-TC; 94667-TC; 94668-TC; 94799-TC; A4216; A6248; G0378; J1650; J1815; J2185; J2543; J3370; J3475; J3480; J7030; J7050; J7060

== ENCOUNTER 2018-11-30 23:49 | Inpatient (IN) | payer MEDICARE, BC ==
[~2018-11-30] VITALS: Ht 177.8 cm; Wt 80.7 kg
[~2018-11-30 23:49] MED LIST changes: -ASPI-605 PO; -ATOR10TA PO; -BISA10SU11 RC; -DOCU-141 PO; +DOXY100T2 PO; -FLUC100T8 PO; -MAGN400O6 PO; +MERO500V IV; -NA P133E RC; +SPIR25TA PO; -TAMS0.4C34 PO
[2018-12-01] VITALS (58 sets, daily range): BP systolic 102–163; BP diastolic 52–93
--- NOTE | 2018-12-01 00:02 | NUR ---
"[id number] C/O LOW O2 SAT 78% AND HYPOTENSION X 30 MIN.BASELINE AOX1." PT NON VERBAL, PT TO BED 5, PT ON 15LPM NONRBR O2 SAT AROUND 86%. MD AT BEDSIDE FOR EVAL
[2018-12-01] MEDS ORDERED: PIPERACILLIN /TAZOBACTAM 3.375 G VIAL IV ONE (00:20)
[2018-12-01] MEDS ORDERED: ACETAMINOPHEN 650 MG/SUPP.RECT RC ONE ×2 (00:21→00:30)
[2018-12-01 00:26] LABS: BASOPHILS % (AUTO) 0.3 % (0.0-2.0); HEMATOCRIT 36 % (39-51); LYMPHOCYTES # (AUTO) 0.7 /CMM (0.8-4.8); LYMPHOCYTES % (AUTO) 8.9 % (20.0-44.0); MEAN CORPUSCULAR HGB CONC 34 g/dl (31.0-36.0); MEAN CORPUSCULAR VOLUME 91 fL (80-96); MONOCYTES # (AUTO) 0.7 /CMM (0.1-1.30); MONOCYTES % (AUTO) 8.4 % (2.0-12.0); NEUTROPHILS # (AUTO) 6.9 /CMM (1.8-8.9); NEUTROPHILS % (AUTO) 82.4 % (43.0-81.0); PLATELET COUNT (AUTO) 248 /CMM (150-450); RED BLOOD CELL COUNT(AUTO) 3.91 MIL/uL (4.5-6.0); WHITE BLOOD COUNT (AUTO) 8.4 K/uL (4.3-11.0)
[2018-12-01] MEDS ORDERED: PIPERACILLIN /TAZOBACTAM 3.375 G in IV D5W 50 ML IV ONE (00:30)
[2018-12-01] MEDS ORDERED: IV NS 0.9% 1,000 ML BAG IV ONE (00:30)
[2018-12-01] MEDS ORDERED: VANCOMYCIN 1 GM in IV D5W 250 ML IV ONE (00:30)
[2018-12-01 00:45] LABS: ALANINE AMINOTRANSFERASE 11 U/L (12-78); ALBUMIN 1.9 g/dL (3.4-5.0); ALKALINE PHOSPHATASE 79 U/L (46-116); ASPARTATE AMINOTRANSFERASE 8 U/L (15-37); BILIRUBIN,DIRECT 0.2 mg/dL (0.0-0.2); BILIRUBIN,TOTAL 0.5 mg/dL (0.2-1.0); CALCIUM, SERUM 9.3 mg/dL (8.5-10.1); CARBON DIOXIDE 29 mmol/L (21-32); CHLORIDE 102 mmol/L (98-107); CREATININE 4.5 mg/dL (0.6-1.3); GLUCOSE 165 mg/dL (74-106); POTASSIUM 4.9 mmol/L (3.5-5.1); SODIUM SERUM 140 mmol/L (136-145); TOTAL PROTEIN, SERUM 6.8 g/dL (6.4-8.2)
--- NOTE | 2018-12-01 00:48 | NUR ---
pt rec'd on NRB mask 15lpm. pt showed tachypnea, diaphoresis, and spo2 desaturation. crackles heard bilaterally throughout all lung ariza pt nasotracheal suction for large thick amt of yellow sputum. pt placed on bipap per md orders on noted settings as charted. abg to taken 30 minutes prior to placing pt on bipap per md orders. alarms are set and audible. bipap plugged into red outlet. ambu bag bedside. will continue to monitor closely. Addendum: 12/01/18 at 0052 by MARY العلي RT Amended: Links added.
[2018-12-01 00:59] LABS: APPEARANCE,URINE TURBID (CLEAR); BLOOD, URINE 3+ Ery/uL (NEGATIVE); COLOR,URINE Light yellow (YELLOW); PROTEIN,URINE 4+ mg/dl (NEGATIVE); UGLUCOSE NEGATIVE (NEGATIVE)
[2018-12-01 01:00] LABS: BILIRUBIN,URINE NEGATIVE (NEGATIVE); KETONES,URINE 1+ (NEGATIVE); LEUKOCYTE ESTERASE ,URINE 3+ (NEGATIVE); NITRITE, URINE NEGATIVE (NEGATIVE); UROBILINOGEN,URINE 0.2 EU/dL (0.2)
[2018-12-01] MEDS ORDERED: ACETAMINOPHEN 325 MG TABLET PO PRN (01:00)
[2018-12-01] MEDS ORDERED: ONDANSETRON HCL/PF 4 MG/2 ML VIAL IVP PRN (01:00)
[2018-12-01 01:04] LABS: WBC,URINE TOO NUMEROUS TO COUN /HPF (0-3)
[2018-12-01 01:05] LABS: BACTERIA,URINE Moderate /HPF (None Seen); SQUAMOUS EPITHELIAL CELL,UR Rare /HPF (None Seen)
[2018-12-01 01:07] LABS: UREA NITROGEN, BLOOD 54 mg/dL (7-18)
[2018-12-01] MEDS ORDERED: VANCOMYCIN 1 GM VIAL ONE (01:18)
[2018-12-01 01:20] LABS: ABG BASE EXCESS -1.7 mmol/L; ABG PCO2 32.2 mmHg (35.0-45.0); ABG PH 7.447 (7.350-7.450); ABG PO2 252.5 mmHg (75.0-100.0); AaDO2 428.3 mmHg; COHb 0.1 % (0.5-1.5); MetHb 0.5 % (0.0-1.5); O2Hb 98.4 % (94.0-97.0); SITE, ABG Right Radial; VENT MODE, BG ST 15/5 RR16 100%
[2018-12-01] MEDS ORDERED: NOREPINEPHRINE 4 MG/4 ML AMPUL IV ONE ×2 (02:08→02:36)
--- NOTE | 2018-12-01 02:26 | NUR ---
REPORT GIVEN RACHEL CHOUDHURY FOR REINIER;PT WILL BE TRANSPORTED TO ICU VIA ACLS PROTOCOL
[2018-12-01] MEDS ORDERED: NOREPINEPHRINE 16 MG in IV D5W 500 ML IV PRN (02:30)
[2018-12-01] MEDS: ENOXAPARIN SODIUM 30 MG/0.3 ML DISP.SYRIN SQ SCH ×2 (02:57→22:19)
[2018-12-01] MEDS ORDERED: IV NS 0.9% 500 ML IV ONE (03:00)
[2018-12-01] MEDS: IV NS 0.9% 1,000 ML IV SCH ×3 (03:58→15:50)
--- NOTE | 2018-12-01 04:38 | NUR ---
SCHEDULING ASSISTANT. ADMISSION. RECEIVED THE PT FROM CAROL VIA CHUYITA. PT IS OBTUNDED. OPEN EYES. DOES NOT FOLLOW COMMANDS.ITOR SHOWING AFIB, PT ON BIPAP. SETTINGS 15/5. RATE IS 16,FIO2 60%. SAT 98%. NO ACUTE DISTRESS NOTED. FOURNIER CATHETER REMVED AND NEW REPLACED WITH OUT DIFFICULT. PUS DRAINING. ON CA;LL MADE AWARE, HOB ELEVATED, IV LT HAND 18G. LEVOPHED 10MCG/MIN, IVF NS 125 ML/H. LT FOOT DTI AND SACRAL REDNESS AND EXCORIATION NOTED, PICTURE TAKEN. MEPILEX APPLIED.WILL CONTINUE TO MONITOR VITALS.
[2018-12-01] MEDS: BLOOD SUGAR DIAGNOSTIC 1 EACH STRIP IN SCH ×3 (05:57→17:33)
[2018-12-01] MEDS ORDERED: PIPERACILLIN /TAZOBACTAM 2.25 G VIAL IV ONE (06:31)
[2018-12-01] MEDS: PIPERACILLIN /TAZOBACTAM 2.25 G in IV D5W 50 ML IV SCH ×2 (06:46→13:03)
[2018-12-01] MEDS ORDERED: FEE PK DOSING 1 MIN EA MC ONE (07:45)
--- NOTE | 2018-12-01 08:00 | NUR ---
received pt from date night sitter, s/p septic shock, on levo at 8mcg, alert/drowsy, does not follow commands, SR, on bipap at 60% fio2, sat well, NPO, OK urine output, v/s stable, no pain, pt turned and repositioned.
[2018-12-01] MEDS ORDERED: FLUC100T PO (08:31)
[2018-12-01] MEDS ORDERED: DOCU-141 PO (08:31)
[2018-12-01] MEDS ORDERED: BISA10SU11 RC (08:31)
[2018-12-01] MEDS ORDERED: SPIR25TA6 PO (08:31)
[2018-12-01] MEDS ORDERED: MAGN400O6 PO (08:31)
[2018-12-01] MEDS ORDERED: NA P133E RC (08:31)
[2018-12-01] MEDS ORDERED: PANTOPRAZOLE 40 MG VIAL IV SCH (09:00)
[2018-12-01] MEDS: NEXIUM 40 MG VIAL IV SCH (09:33)
--- NOTE | 2018-12-01 16:56 | NUR ---
pt is resting in the bed, lethargic, SR, off of levo since 1600, very low urine output, MD aware, on Venturi mask at 35% fi02, sat well, v/s stable, no pain, pt cleaned, changed and repositioned q2hrs.
[2018-12-01] MEDS ORDERED: MEROPENEM 500 MG in IV NS 0.9% 50 ML IV SCH (18:00)
--- NOTE | 2018-12-01 20:00 | NUR ---
RN NOTES Received Patient's report from am RN. pt is resting in the bed, lethargic, SR on entry rep, very low with sediments urine output, MD aware, on Venturi mask at 35% fi02, sat well, v/s stable, no pain noted at this time, no complaint of SOB, respiration is even. IV line are patient and intact with IVF as ordered.All safety measures are in place, bed in low, locked position, call light in reach. will continue to monitor patient closely.
[2018-12-01] MEDS: MEROPENEM 500 MG in IV NS 0.9% 50 ML IV SCH (20:18)
[2018-12-02] VITALS (28 sets, daily range): BP systolic 103–177; BP diastolic 54–126
[2018-12-02] MEDS: BLOOD SUGAR DIAGNOSTIC 1 EACH STRIP IN SCH ×4 (00:35→17:27)
[2018-12-02] MEDS: IV NS 0.9% 1,000 ML IV SCH ×3 (00:36→18:03)
[2018-12-02 04:50] LABS: BASOPHILS % (AUTO) 0.3 % (0.0-2.0); EOSINOPHILS % (AUTO) 1.6 % (0.0-6.0); HEMATOCRIT 32 % (39-51); HEMOGLOBIN 10.5 g/dL (13.5-17.5); LYMPHOCYTES # (AUTO) 0.7 /CMM (0.8-4.8); LYMPHOCYTES % (AUTO) 7.4 % (20.0-44.0); MEAN CORPUSCULAR HGB CONC 33 g/dl (31.0-36.0); MEAN CORPUSCULAR VOLUME 91 fL (80-96); MONOCYTES # (AUTO) 0.9 /CMM (0.1-1.30); MONOCYTES % (AUTO) 9.1 % (2.0-12.0); NEUTROPHILS # (AUTO) 8.1 /CMM (1.8-8.9); NEUTROPHILS % (AUTO) 81.6 % (43.0-81.0); PLATELET COUNT (AUTO) 227 /CMM (150-450)
[2018-12-02 05:03] LABS: ALBUMIN 1.7 g/dL (3.4-5.0); BILIRUBIN,TOTAL 0.3 mg/dL (0.2-1.0); CHLORIDE 106 mmol/L (98-107); GLUCOSE 119 mg/dL (74-106); MAGNESIUM 1.7 mg/dL (1.8-2.4); PHOSPHORUS 3.7 mg/dL (2.5-4.9); POTASSIUM 4.1 mmol/L (3.5-5.1); SODIUM SERUM 142 mmol/L (136-145); TOTAL PROTEIN, SERUM 6.3 g/dL (6.4-8.2)
[2018-12-02 05:25] LABS: CALCIUM, SERUM 8.8 mg/dL (8.5-10.1); CARBON DIOXIDE 26 mmol/L (21-32); CREATININE 3.5 mg/dL (0.6-1.3); UREA NITROGEN, BLOOD 55 mg/dL (7-18)
[2018-12-02 05:26] LABS: ALANINE AMINOTRANSFERASE 12 U/L (12-78); ALKALINE PHOSPHATASE 77 U/L (46-116); ASPARTATE AMINOTRANSFERASE 11 U/L (15-37)
[2018-12-02 06:17] LABS: BAND % (MANUAL) 2 % (0.0-5.0); EOSINOPHILS % (MANUAL) 2 % (0-4); LYMPHOCYTES % (MANUAL) 8 % (16-48); MONOCYTES % (MANUAL) 9 % (0-11.0); NEUTROPHILS % (MANUAL) 79 (42-76)
--- NOTE | 2018-12-02 07:05 | NUR ---
RN NOTES RECEIVED PT ON BED, OPENS EYES TO VERBAL STIMULI, FOLLOW SIMPLE COMMAND, ON VENTI MASK AT 10L , O2 SAT WNL, NO SOB NOTED, ON TELE SR- ST , FOURNIER DRAINING TO GRAVITY, PT IS NPO AT THIS TIME, NS AT 125CC/HR RUNNING VIA L UPPER ARM MIDLINE, SITE CLEAN, DRY AND INTACT, SR UPx3, CALL LIGHT WITHIN EASY REACH, BED LOCKED AND IN LOWEST POSITION, CONTINUE TO MONITOR
[2018-12-02] MEDS: MEROPENEM 500 MG in IV NS 0.9% 50 ML IV SCH ×2 (07:50→21:00)
--- NOTE | 2018-12-02 07:55 | NUR ---
RN NOTES Pt is resting in the bed, lethargic, SR on monitor technician, still very low with sediments urine output,on Venturi mask at 35% fi02, sat well, v/s stable, no pain noted at this time, no complaint of SOB, respiration is even. IV line are patient and intact with IVF as ordered.All safety measures are in place, bed in low, locked position, call light in reach. patient report is given to ty Malin for POLICY ISSUE CLERK.
[2018-12-02] MEDS ORDERED: VANCOMYCIN 1 GM in IV D5W 250 ML IV SCH (08:00)
[2018-12-02] MEDS: NEXIUM 40 MG VIAL IV SCH (08:03)
[2018-12-02] MEDS ORDERED: Magnesium 1GM/D5W 100ML PREMIX 100 ML IV SCH (08:30)
--- NOTE | 2018-12-02 08:45 | NUR ---
RN NOTES REPORT GIVEN TO CECILIA CHOUDHURY FOR CONTINUITY OF CARE .
--- NOTE | 2018-12-02 08:45 | NUR ---
ICU/CAFETERIA CASHIER OF CARE REPORT GIVEN BY NURSE SMITH. PT RECEIVED LETHARGIC, OPEN EYES SPONTANEOUSLY, NO ACUTE CHANGE OF CONDITION NOTED. ON NPO STATUS. ON VENTURI MASK SATURATING @ 96%, LUNG SOUNDS CLEAR, RESPIRATIONS EVEN AND UNLABORED, SINUS RHYTHM, HR 89. WITH ON GOING IV INFUSION OF VANCOMYCIN, IV SITES PATENT WITH NO S/S OF INFECTION. FOURNIER CATHETER INTACT NOTED WITH FOUL ODOR, YELLOW CLOUDY URINE OUTPUT. PT IS COMFORTABLE, CARE CONTINUED. CL WITHIN REACHED AND SAFETY MAINTAINED. ON GOING MONITORING.
--- NOTE | 2018-12-02 12:12 | NUR ---
ICU/RN ROUNDS - DR. RANDHAWA UPDATED PT'S CONDITION. PT SEEN & EXAMINED BY DR. RANDHAWA, NO NEW ORDERS RECEIVED AT THIS TIME, MONITORING CONTINUED.
--- NOTE | 2018-12-02 17:00 | NUR ---
ICU/RN AFTERNOON ROUNDS PM CARE PROVIDED, NO ACUTE CHANGE OF CONDITION. MONITORING CONTINUED.
--- NOTE | 2018-12-02 19:13 | NUR ---
ICU/RN AM SHIFT END NOTES ALL NEEDS MET. NO ACUTE CHANGE OF CONDITION NOTED DURING THE SHIFT. PT ENDORSED TO PM NURSE TO CONTINUE CARE. CL WITHIN REACHED AND SAFETY MAINTAINED.
--- NOTE | 2018-12-02 19:30 | NUR ---
SCALER NOTE RECEIVED PT AWAKE AND FOLLOWS SIMPLE COMMANDS. ON VENTURI MASK AND SATURATING WELL. HOB ELEVATED AND ASPIRATION PRECAUTIONS. TELE- SR. SRIDEVI MIDLINE PATENT WITH FLUIDS INFUSING. FOURNIER CATHETER IN PLACE AND DRAINING YELLOW, CLOUDY URINE FILLED WITH SEDIMENT. BED ALARM ENABLED. CALL LIGHT WITHIN REACH. WILL MONITOR.
[2018-12-02] MEDS: FAMOTIDINE/PF INJ 20 MG/2 ML VIAL IV SCH (21:35)
[2018-12-02] MEDS: ENOXAPARIN SODIUM 30 MG/0.3 ML DISP.SYRIN SQ SCH (21:35)
[2018-12-03] VITALS (31 sets, daily range): BP systolic 110–188; BP diastolic 50–114
[2018-12-03] MEDS: BLOOD SUGAR DIAGNOSTIC 1 EACH STRIP IN SCH ×4 (00:37→17:36)
[2018-12-03] MEDS: IV NS 0.9% 1,000 ML IV SCH (02:40)
[2018-12-03 04:30] LABS: BASOPHILS % (AUTO) 0.3 % (0.0-2.0); EOSINOPHILS % (AUTO) 1.8 % (0.0-6.0); HEMATOCRIT 28 % (39-51); HEMOGLOBIN 9.4 g/dL (13.5-17.5); LYMPHOCYTES % (AUTO) 14.5 % (20.0-44.0); MEAN CORPUSCULAR HGB CONC 34 g/dl (31.0-36.0); MEAN CORPUSCULAR VOLUME 92 fL (80-96); MONOCYTES # (AUTO) 1.2 /CMM (0.1-1.30); MONOCYTES % (AUTO) 16.9 % (2.0-12.0); NEUTROPHILS # (AUTO) 4.7 /CMM (1.8-8.9); NEUTROPHILS % (AUTO) 66.5 % (43.0-81.0); PLATELET COUNT (AUTO) 224 /CMM (150-450); RED BLOOD CELL COUNT(AUTO) 3.03 MIL/uL (4.5-6.0); WHITE BLOOD COUNT (AUTO) 7.1 K/uL (4.3-11.0)
[2018-12-03 04:36] LABS: CALCIUM, SERUM 8.9 mg/dL (8.5-10.1); CARBON DIOXIDE 26 mmol/L (21-32); CHLORIDE 110 mmol/L (98-107); CREATININE 2.2 mg/dL (0.6-1.3); GLUCOSE 112 mg/dL (74-106); POTASSIUM 3.9 mmol/L (3.5-5.1); SODIUM SERUM 145 mmol/L (136-145); UREA NITROGEN, BLOOD 43 mg/dL (7-18)
[2018-12-03 05:24] LABS: EOSINOPHILS % (MANUAL) 2 % (0-4); LYMPHOCYTES % (MANUAL) 14 % (16-48); MONOCYTES % (MANUAL) 10 % (0-11.0); NEUTROPHILS % (MANUAL) 74 (42-76)
--- NOTE | 2018-12-03 07:35 | NUR ---
LOGISTICS ASSISTANT NOTE PT REMAINED STABLE DURING SHIFT. NO DISCOMFORT NOTED. ORAL CARE PERFORMED. SUCTIONED NEEDED. ALL NEEDS ATTENDED TO PROMPTLY. KEPT CLEAN AND DRY. REPOSITIONED Q2H. WILL ENDORSE TO NEXT SHIFT FOR CONTINUITY OF CARE.
--- NOTE | 2018-12-03 07:38 | NUR ---
ICU/RN AM SHIFT INITIAL NOTES RECEIVED PT AWAKE IN BED, ALERT FOLLOWS SIMPLE COMMANDS, RESPONSIVE, NO ACUTE DISTRESS OR CHANGE OF CONDITION NOTED. ON VENTURI MASK WITH 11L OF O2, 35% FIO2. SATURATING @ 96%, RESPIRATIONS EVEN AND UNLABORED, LUNG SOUNDS CLEAR, ON TELE MONITORING, HR 76. ON GOING IV INFUSION OF NS @ 125CC/HR, MIDLINE PATENT WITH NO S/S OF INFECTION. FOURNIER CATHETER INTACT WITH CLOUDY URINE, SEDIMENTS AND MUCUS-LIKE OUTPUT. PT ON NPO STATUS AT THIS TIME. PT IS COMFORTABLE, WILL CONTINUE CARE. CL WITHIN REACHED AND SAFETY MAINTAINED. ON GOING MONITORING.
[2018-12-03] MEDS: MEROPENEM 500 MG in IV NS 0.9% 50 ML IV SCH (07:57)
[2018-12-03] MEDS: VANCOMYCIN 1 GM in IV D5W 250 ML IV SCH (07:57)
[2018-12-03] MEDS ORDERED: Z GUARD REMEDY 2 OZ OINT TP PRN (08:00)
[2018-12-03] MEDS: FAMOTIDINE/PF INJ 20 MG/2 ML VIAL IV SCH ×2 (08:12→20:19)
--- NOTE | 2018-12-03 08:13 | NUR ---
ICU/RN ROUNDS - DR. FERGUSON UPDATED PT'S CONDITION, PT SEEN & EXAMINED BY DR. FERGUSON. PT NOTED WITH INCREASED BP, WITH VERBAL ORDER RECEIVED FOR PRN HYDRALAZINE 10MG IVP Q4HRS FOR SBP ABOVE 160. ORDER NOTED AND CARRIED OUT. MONITORING CONTINUED.
[2018-12-03] MEDS: hydrALAZINE HCL IV 20 MG VIAL IV PRN (08:26)
--- NOTE | 2018-12-03 11:21 | NUR ---
WOUND CARE CONSULT: PT PRESENTS WITH RT HEEL INTACT DEEP TISSUE INJURY AND RT LATERAL ANKLE FRAGILE HEALED AREA, BLANCHABLE REDNESS TO SACRAL/BUTTOCKS AREA WITH HARD MOVEABLE LUMP UNDER SKIN AT RT BUTTOCK, PRESENT ON ADMISSION. DEFER TO MD FOR HARD LUMP FELT AT RT BUTTOCK. RECOMMENDAITONS MADE FOR SKIN PROTECTION AND CARE. DISCUSSED WITH NURSING STAFF. PT ON FIRST STEP [facility]. WILL SEE PRN. VENEGAS IN AGREEMENT WITH PLAN OF CARE. Addendum: 12/03/18 at 1126 by JOHNNY EDWARDS WNDNU Amended: Links added.
--- NOTE | 2018-12-03 12:00 | NUR ---
ICU/RN NOON ROUNDS NO CHANGE OF CONDITION. MONITORING CONTINUED.
[2018-12-03] MEDS: IV NS 0.9% 1,000 ML IV PRN ×2 (12:22→20:17)
--- NOTE | 2018-12-03 17:00 | NUR ---
ICU/RN AFTERNOON ROUNDS NO CHANGE OF CONDITION. PM CARE PROVIDED. MONITORING CONTINUED.
--- NOTE | 2018-12-03 19:14 | NUR ---
ICU/RN AM SHIFT END NOTES ALL NEEDS MET, NO ACUTE CHANGE OF CONDITION NOTED DURING THE SHIFT. PT ON VENTURI MASK, WITH ON GOING IV INFUSION OF NS @ 125CC/HR MIDLINE PATENT WITH NO S/S INFECTION. FOURNIER CATHETER INTACT. SAFETY MAINTAINED THROUGHOUT THE SHIFT, PT ENDORSED TO PM NURSE TO CONTINUE CARE.
--- NOTE | 2018-12-03 19:30 | NUR ---
TESTING AND REGULATING TECHNICIAN INITIAL SHIFT NOTES RECEIVED PATIENT IN BED, AWAKE, ALERT AND ORIENTED X 1-2 ABLE TO VERBALIZE NEEDS, MENTAL STATUS IMPROVING. ON O2 VIA VENTURI MASK @ 35% FIO2, TOLERATING WELL, SPO2 WNL, NO RESPIRATORY DISTRESS NOTED. BEDSIDE SNOUT PULLER READING SINUS TACHYCARDIA, HR = 101 BPM AT THIS TIME. LEFT UPPER ARM MIDLINE PATENT AND INTACT, ONGOING IV FLUIDS OF NS @ 125ML/HR. FOURNIER CATHETER PATENT AND INTACT, DRAINING CLOUDY YELLOW URINE WITH SEDIMENTS VIA GRAVITY. CALL LIGHT LEFT WITHIN EASY REACH, BE DIN LOWEST AND LOCKED POSITION. WILL CONTINUE TO CLOSELY MONITOR THE PATIENT
--- NOTE | 2018-12-03 20:00 | NUR ---
LOCK MAINTENANCE SUPERVISOR. PT FACE WAS RED, TEMPERATURE RECTAL AND AXILLARY IS 99.7. MD CHILDREN'S LIBRARIAN ORDERED BENADRYL 25MG IVQ6 AND PRN.
[2018-12-03] MEDS: MEROPENEM 1 G in IV NS 0.9% 100 ML IV SCH (20:19)
[2018-12-03] MEDS: diphenhydrAMINE HCL 50 MG/ML VIAL IV PRN (21:02)
[2018-12-03] MEDS: ENOXAPARIN SODIUM 30 MG/0.3 ML DISP.SYRIN SQ SCH (22:41)
--- NOTE | 2018-12-03 22:51 | NUR ---
MODEL AND DYE PERSON. PT FACE STILL REDNESS NOT SLEEPING TEMPERATURE IS 99.6. CALLED TRIM TECHNICIAN ANDERSON . PER PT DAUGHTER STATED WHEN PT GET ANXIOUS FACE BECOME RED, MD BARRON ORDERED ONE TIME AMBIEN . WILL CONTINUE TO MONITOR.
[2018-12-03] MEDS ORDERED: ZOLPIDEM TARTRATE 5 MG TABLET PO ONE (23:00)
[2018-12-03] MEDS ORDERED: ACETAMINOPHEN 650 MG/SUPP.RECT RC PRN (23:30)
--- NOTE | 2018-12-03 23:31 | NUR ---
RN NOTES: DR. BARRON ON FLOOR. INFORMED HER THAT PT IS COMING TO TELE FLOOR AND THAT PT HAS RECTAL TEMP OF 99.6 PER REPORT; GOT PRN ORDER FOR TYLENOL 650MG SUPP Q6HR PRN PAIN/FEVER.
--- NOTE | 2018-12-03 23:40 | NUR ---
HEAD START TEACHER OPENING NOTES: RECEIVED PT FROM WAREHOUSE INSULATION WORKER, TANNER ALMARAZ. PT APPEARS TO BE NONVERBAL AND FLUSHED. PT IS A/OX1. PT ON 11LPM VIA VENTURI MASK. PT TO BE PLACED ON HYDRO PLANT TECHNICIAN. PT HAS FOURNIER CATH AND IS ATTACHED TO DRAINAGE BAG WITH URINE DRAINING. PT HAS IV ON SRIDEVI MIDLINE AND IS BEING INFUSED WITH IV NS AT 125ML/HR. PT NPO AT THIS TIME AND PENDING SWALLOW EVAL. BED KEPT IN LOW, LOCKED POSITION, AND SIDE RAILS X 2UP. BED ALARM ACTIVATED. WILL CONTINUE TO MONITOR.
--- NOTE | 2018-12-03 23:45 | NUR ---
TRAFFIC REPORTER NOTES PATIENT TRANSFERRED TO TELEMETRY FLOOR, ROOM 326-2, VIA ACLS PROTOCOL.
[2018-12-04 00:01] VITALS: BP 157/85
[2018-12-04] MEDS: BLOOD SUGAR DIAGNOSTIC 1 EACH STRIP IN SCH ×4 (00:07→17:37)
--- NOTE | 2018-12-04 00:12 | NUR ---
SURGICAL ASSISTANT CERTIFIED NOTES: TELE READING ST 108.
--- NOTE | 2018-12-04 00:40 | NUR ---
SERVICE COUNTER CASHIER NOTES: DR. BARRON ON FLOOR. INFORMED HER THAT LATEST BLOOD SUGAR WAS 119, PT IS NPO, AND PT HAS HX OF DIABETES. NO NEW ORDER. KEEP PT ON NS AT 125ML/HR. ALSO, INFORMED HER THAT MED RECON HAS NOT BEEN DONE. ENDORSEMENT FOR TOMORROW PT IS NPO AND PENDING FOR CHRISTO SCOTT.
[2018-12-04] MEDS: IV NS 0.9% 1,000 ML IV PRN ×2 (03:41→17:37)
[2018-12-04 04:00] VITALS: BP 156/82
--- NOTE | 2018-12-04 04:17 | NUR ---
CATERING MANAGER NOTES: ICE PACKS PLACED UNDER BOTH ARMS FOR COOLING MEASURES. WILL CONTINUE TO MONITOR TEMP.
[2018-12-04 06:34] LABS: CALCIUM, SERUM 8.7 mg/dL (8.5-10.1); CARBON DIOXIDE 23 mmol/L (21-32); CHLORIDE 113 mmol/L (98-107); CREATININE 1.8 mg/dL (0.6-1.3); GLUCOSE 139 mg/dL (74-106); POTASSIUM 3.6 mmol/L (3.5-5.1); SODIUM SERUM 147 mmol/L (136-145); UREA NITROGEN, BLOOD 33 mg/dL (7-18)
--- NOTE | 2018-12-04 07:08 | NUR ---
COATING MIXER TENDER CLOSING NOTES: ALL NEEDS WERE ATTENDED AND ANTICIPATED FOR. TITRATED OXYGEN TO 8LPM VIA VENTURI MASK. PT REMAINS NONVERBAL AND GRUNTS FROM TIME TO TIME. NO SOB NOTED. NO S/S OF DISTRESS. PT ON TELE MONITOR AND READING SHOWS ST 101. PT HAS FOURNIER CATH AND IS ATTACHED TO DRAINAGE BAG WITH URINE DRAINING. OUTPUT WAS 540ML. BED KEPT IN LOW, LOCKED POSITION, AND SIDE RAILS X 2 UP. PT TURNED AND REPOSITIONED Q 2HRS. BED ALARM ACTIVATED. WILL ENDORSE TO AM NURSE FOR REINIER.
[2018-12-04] MEDS: VANCOMYCIN 1 GM in IV D5W 250 ML IV SCH (07:40)
[2018-12-04 07:58] LABS: ABG OXYGEN SATURATION 96.2 % (92.0-98.5); ABG PH 7.433 (7.350-7.450); ABG PO2 92.5 mmHg (75.0-100.0); AaDO2 107.7 mmHg; COHb 0.3 % (0.5-1.5); MetHb 1.1 % (0.0-1.5); O2Hb 94.9 % (94.0-97.0); SITE, ABG Right Radial; VENT MODE, BG VENTIMASK 35%
[2018-12-04 08:00] VITALS: BP 148/78
[2018-12-04] MEDS: MEROPENEM 1 G in IV NS 0.9% 100 ML IV SCH ×2 (08:41→21:36)
[2018-12-04] MEDS: FAMOTIDINE/PF INJ 20 MG/2 ML VIAL IV SCH ×2 (09:13→21:37)
--- NOTE | 2018-12-04 09:38 | NUR ---
PER DR. WALTERS PATIENT PLACED ON 8L NS . WILL MONITOR
[2018-12-04] MEDS ORDERED: NA PHOS,M-B/NA PHOS,DI-BA 1 EA ENEMA RC PRN (10:30)
[2018-12-04] MEDS ORDERED: DEXTROSE 50%-WATER 50 ML DISP.SYRIN IV PRN (10:30)
[2018-12-04] MEDS ORDERED: BISACODYL SUPP (10 MG) 10 MG/SUPP.RECT SUPP.RECT RC PRN (10:30)
[2018-12-04] MEDS: DIVALPROEX SODIUM 250 MG TABLET.DR PO SCH ×2 (13:00→17:00)
[2018-12-04 16:00] VITALS: BP 179/98
--- NOTE | 2018-12-04 16:20 | NUR ---
PATIENT ON 5L VIA NS TOLERATING WELL , SATURATION 97%
[2018-12-04] MEDS: METOPROLOL TARTRATE 50 MG TABLET PO SCH (17:00)
[2018-12-04] MEDS: DULOXETINE HCL 30 MG CAPSULE.DR PO SCH (17:00)
[2018-12-04] MEDS: hydrALAZINE HCL 25 MG TABLET PO SCH (17:00)
--- NOTE | 2018-12-04 17:00 | NUR ---
PLACED ORDER FOR SWALLOW EVALUATION PER CHAD SPEAR
--- NOTE | 2018-12-04 19:09 | NUR ---
PATIENT NON-VERBAL, NPO . PATIENT REMAIN STABLE ON 5L VIA NC. VS WITHIN BASELINE, AFEBRILE. ALL NEEDS ATTENDED AND MET. PATIENT KEPT CLEAN AND REPOSITIONED Q2HR. F/C OUTPUT 1300 ML. CENTRAL LINE INTACT AND PATENT . ONGOING FLUID ORDERED. HOB ELEVATED. SAFETY PRECAUTIONS IN PLACE AND CALL LIGHT WITHIN REACH. WILL ENDORSE TO NEXT SHIFT FOR REINIER.
--- NOTE | 2018-12-04 19:40 | NUR ---
MS RN NOTE: PATIENT RESTING IN BED, NO ACUTE DISTRESS NOTED. BREATHING EVEN AND UNLABORED, NO SOB NOTED. MIDLINE IN PLACE, INFUSING NS AT 125ML/HR.. FOURNIER CATHETER IN PLACE, EMPTY AT THIS TIME. BED LOCKED AND IN LOWEST POSITION, CALL LIGHT IN REACH. WILL CONTINUE TO MONITOR.
[2018-12-04 20:00] VITALS: BP 150/73
[2018-12-04] MEDS: ENOXAPARIN SODIUM 30 MG/0.3 ML DISP.SYRIN SQ SCH (21:39)
[2018-12-04] MEDS: diphenhydrAMINE HCL 50 MG/ML VIAL IV PRN (21:46)
[2018-12-05] VITALS: BP 123/74
[2018-12-05] MEDS: BLOOD SUGAR DIAGNOSTIC 1 EACH STRIP IN SCH ×4 (00:51→17:35)
--- NOTE | 2018-12-05 00:55 | NUR ---
MS CHOUDHURY NOTE: PATIENT BLOOD SUGAR LEVEL 112MG/DL, NO S/S OF HYPOGLYCEMIA. WILL CONTINUE TO MONITOR. Addendum: 12/05/18 at 0138 by VIVIANE KARIMI RN NO INSULIN NEEDED PER SLIDING SCALE.
--- NOTE | 2018-12-05 06:15 | NUR ---
MS RN NOTE: PATIENT RESTING IN BED, NO ACUTE DISTRESS NOTED. BREATHING EVEN AND UNLABORED, NO SOB NOTED. MIDLINE IN PLACE, INFUSING NS AT 125ML/HR. FOURNIER CATHETER IN PLACE. PATIENT BLOOD SUGAR LEVEL 146MG/DL, NO INSULIN GIVEN SINCE PATIENT IS NPO, PENDING SWALLOW EVAL. BED LOCKED AND IN LOWEST POSITION, CALL LIGHT IN REACH. WILL ENDORSE TO DAY NURSE TO CONTINUE WITH PLAN OF CARE.
[2018-12-05 06:43] LABS: CARBON DIOXIDE 26 mmol/L (21-32); CHLORIDE 113 mmol/L (98-107); CREATININE 1.7 mg/dL (0.6-1.3); GLUCOSE 140 mg/dL (74-106); POTASSIUM 3.5 mmol/L (3.5-5.1); SODIUM SERUM 149 mmol/L (136-145); UREA NITROGEN, BLOOD 26 mg/dL (7-18)
--- NOTE | 2018-12-05 07:40 | NUR ---
MS RN OPENING NOTE PATIENT IN BED RESTING COMFORTABLY. PATIENT IN NO ACUTE DISTRESS. NO SOB NOTED. PATIENT BREATHING IS EVEN AND UNLABORED. PATIENT BREATHING ON OXYGEN NC AT 6L. NO FACIAL GRIMACING NOTED. PATIENT FOURNIER CATHETER HANGING TO GRAVITY. PATIENT HOB IS ELEVATED. PATIENT BED IS LOCKED AND IN LOWEST POSITION. CALL LIGHT WITHIN REACH. SAFETY PRECAUTIONS IN PLACE. WILL CONTINUE TO MONITOR.
[2018-12-05 08:00] VITALS: BP 138/84
[2018-12-05] MEDS: VANCOMYCIN 1 GM in IV D5W 250 ML IV SCH (08:14)
[2018-12-05] MEDS: DIVALPROEX SODIUM 250 MG TABLET.DR PO SCH ×3 (09:00→17:34)
[2018-12-05] MEDS: hydrALAZINE HCL 25 MG TABLET PO SCH ×2 (09:00→17:35)
[2018-12-05] MEDS: METOPROLOL TARTRATE 50 MG TABLET PO SCH ×2 (09:00→17:34)
[2018-12-05] MEDS: AMLODIPINE BESYLATE 5 MG TABLET PO SCH (09:00)
[2018-12-05] MEDS: FINASTERIDE (5 MG) 5 MG TABLET PO SCH (09:00)
[2018-12-05] MEDS: DULOXETINE HCL 30 MG CAPSULE.DR PO SCH ×2 (09:00→17:34)
[2018-12-05] MEDS: MEROPENEM 1 G in IV NS 0.9% 100 ML IV SCH ×2 (09:32→20:39)
[2018-12-05] MEDS: FAMOTIDINE/PF INJ 20 MG/2 ML VIAL IV SCH ×2 (09:33→20:37)
--- NOTE | 2018-12-05 10:10 | NUR ---
MS RN NOTE WORKED WITH SPEECH THERAPIST FOR SWALLOW EVAL. CRUSHED MEDICATIONS TO PREPARE BUT PATIENT CAN NOT TOLERATE HONEY THICK LIQUIDS. PER SPEECH THERAPIST HOLD PO MEDICATIONS. PATIENT UNABLE TO SWALLOW. MD MADE AWARE. PATIENT IN NO ACUTE DISTRESS. HOB IS ELEVATED. WILL CONTINUE TO MONITOR.
--- NOTE | 2018-12-05 11:33 | NUR ---
MS RN NOTE PATIENT BLOOD SUGAR 157, SINCE PATIENT IS NPO NO INSULIN GIVEN. PATIENT IN NO APPARENT DISTRESS. NO SOB. WILL CONTINUE TO MONITOR.
--- NOTE | 2018-12-05 12:54 | NUR ---
MS RN NOTE ORDERS FOR NG TUBE INSERTION. PATIENT TOLERATED NG TUBE INSERTION WELL. ORDER FOR STAT CHEST XRAY FOR PROPER TUBE PLACEMENT. PATIENT IN NO ACUTE DISTRESS. WILL CONTINUE TO MONITOR.
--- NOTE | 2018-12-05 14:39 | NUR ---
MS RN NOTE PATIENT NG TUBE VERIFIED WITH CHEST XRAY. REVIEWED WITH CHARGE NURSE. PER CHARGE NURSE TO INSERT A LITTLE MORE NG TUBE PROJECTS OVER STOMACH PER CHEST XRAY. NO CHEST XRAY NEEDED AGAIN PER CHARGE NURSE. VERIFIED BY AUSCULTATION AND GASTRIC CONTENT WELL BY MYSELF AND STACIA CHOUDHURY. PATIENT IN NO ACUTE DISTRESS. NO SOB NOTED. WILL CONTINUE TO MONITOR.
[2018-12-05] MEDS: IV NS 0.9% 1,000 ML IV PRN (14:56)
[2018-12-05 16:00] VITALS: BP 145/83
--- NOTE | 2018-12-05 17:30 | NUR ---
MS RN NOTE PATIENT BLOOD SUGAR 136. NO INSULIN GIVEN DUE TO PATIENT NPO AND WITH NG TUBE FEEDING YET TO BE STARTED. PATIENT IN NO ACUTE DISTRESS. WILL CONTINUE TO MONITOR.
[2018-12-05] MEDS: GLUCERNA 1.2 1,000 ML BOTTLE NG PRN (18:10)
--- NOTE | 2018-12-05 18:21 | NUR ---
MS RN NOTE PATIENT STARTED ON GLUCERNA 1.2 BY NG TUBE FEEDING. ORDERED TO START AT 20 ML/HR AND ADVANCE BY 10 ML EVERY 10-12 HOURS TO GOAL RATE OF 70 ML/HR, TO PROVIDE (2016 CALORIES AND 101 GRAM PROTEIN). PATIENT TOLERATING WELL. PATIENT IN NO ACUTE DISTRESS. WILL CONTINUE TO MONITOR.
--- NOTE | 2018-12-05 19:00 | NUR ---
MS RN CLOSING NOTE PATIENT IN BED RESTING COMFORTABLY, WITH PATIENT FAMILY AT THE BEDSIDE. PATIENT IN NO ACUTE DISTRESS. NO SOB NOTED. PATIENT BREATHING ON OXYGEN SATURATING >95 SPO2 WITH NC AT 6L. PATIENT HEAD OF BED IS ELEVATED. PATIENT KEPT CLEAN, DRY, REPOSITIONED, AND EXTREMITIES OFFLOADED THROUGHOUT SHIFT. WOUND CARE ORDERS PROVIDED AND COVERED WITH MEPILEX. PATIENT TOLERATING NG TUBE FEEDING WELL. CHECKED FOR GASTRIC CONTENT AND BY AUSCULTATION FOR PLACEMENT. ALL NURSING NEEDS MET. SAFETY PRECAUTIONS IN PLACE. PATIENT BED IS LOCKED AND IN LOWEST POSITION. CALL LIGHT WITHIN REACH. ENDORSED CARE TO PM SHIFT FOR REINIER.
[2018-12-05 20:00] VITALS: BP 159/88
--- NOTE | 2018-12-05 20:00 | NUR ---
MS RN OPENING NOTE RECEIVED PATIENT IN BED. A/O X1. PATIENT ON OXYGEN RUNNING AT 6L/MIN. RESPIRATIONS ARE EVEN AND UNLABORED. DENIES PAIN AT THIS TIME. NG-TUBE IS PRESENT AND RUNNING GLUCERNIA AT 20ML/HR. FOURNIER IS PRESENT AND DRAINING. IV ACCESS LEFT UA MIDLINE AND LAC GAUGE 18. IN NO APPARENT DISTRESS AT THIS TIME. BED IS LOW AND LOCKED. HOB ELEVATED, SIDE RAILS UP X2. CALL LIGHT WITHIN REACH. FAMILY AT BEDSIDE. WILL CONTINUE TO MONITOR. Addendum: 12/05/18 at 2157 by BHUPENDRA ROLAND RN MS RN NOTE CONTINUED FOURNIER CATHETER PRESENT AND HANGING TO GRAVITY WITH YELLOW CLOUDY URINE. CHECKED NG-TUBE PLACEMENT AND CONTINUED RUNNING GLUCERNA AT 20ML/HR.
[2018-12-05] MEDS: ENOXAPARIN SODIUM 30 MG/0.3 ML DISP.SYRIN SQ SCH (21:14)
--- NOTE | 2018-12-06 00:10 | NUR ---
MS RN NOTE 0000 ACCUCHECK PATIENTS BLOOD SUGAR WAS 132. PATIENT DENIES INSULIN PER SLIDING SCALE. PATIENT RECENTLY STARTED GLUCERNA @20ML/HR AT 1830.
[2018-12-06] MEDS: BLOOD SUGAR DIAGNOSTIC 1 EACH STRIP IN SCH ×5 (00:30→23:42)
[2018-12-06] MEDS: IV NS 0.9% 1,000 ML IV PRN (00:31)
--- NOTE | 2018-12-06 02:07 | NUR ---
RN NOTES CHECKED NG-TUBE PLACEMENT AGAIN WITH ANOTHER NURSE
[2018-12-06] MEDS: INSULIN REGULAR, HUMAN 100 UNIT/ML 3 ML VIAL SQ PRN ×4 (06:08→23:43)
--- NOTE | 2018-12-06 06:41 | NUR ---
MS RN CLOSING NOTE PATIENT IS RESTING IN BED. A/O X1. PATIENT ON OXYGEN 6L/MIN VIA NASAL CANNULA. RESPIRATIONS EVEN AND UNLABORED. IN NO APPARENT DISTRESS AT THIS TIME. NO SIGNS OF MANIFESTATION OF PAIN DURING SHIFT. KEPT SKIN CLEAN AND DRY. OFF LOADED THE PATIENT Q2 HOURS. IV ACCESS LAC GAUGE 20 RUNNING NS@125ML/HR. NG-TUBE PRESENT, PLACEMENT CHECKED, RUNNING GLUCERNA @30ML/HR. FOURNIER CATHETER IS PRESENT, GRAINING TO GRAVITY, URINE IS YELLOW AND CLOUDY, URINE OUTPUT IS 800ML. BED IS IN LOWEST POSITION AND LOCKED, HOB ELEVATED, SIDE RAILS UP X2. CALL LIGHT WITHIN REACH. WILL ENDORSE TO DAY SHIFT FOR REINIER.
--- NOTE | 2018-12-06 06:51 | NUR ---
RN NOTE CORRECTION: SRIDEVI MIDLINE RUNNING NS@125ML/HR.
--- NOTE | 2018-12-06 07:08 | NUR ---
MS RN OPENING NOTES RECEIVED PATIENT AWAKE IN BED IN NO ACUTE SIGNS OF DISTRESS. A/O X1. NON-VERBAL. SEEMS COMFORTABLE WITH NO S/S OF PAIN NOTED AT THIS TIME. PT IS DNR/DNI. ON 02 VIA N/C AT 6LPM, RESPIRATIONS EVEN AND UNLABORED. CONTACT PRECAUTIONS FOR ESBL OF URINE MAINTAINED. NG-TUBE IN PLACE AND PATENT WITH GLUCERNA 1.2 FEEDING IN PROGRESS @ 30ML/HR, TOLERATING WELL. ASPIRATION PRECAUTIONS MAINTAINED. FOURNIER IN PLACE AND DRAINING SLIGHTLY CLOUDY YELLOW URINE TO URINARY BEDSIDE BAG. SRIDEVI MIDLINE G#18 INTACT AND PATENT. SAFETY MEASURES IN PLACE. BED IN LOW LOCKED POSITION W/ SR UP X2. CALL LIGHT WITHIN REACH. WILL CONTINUE TO MONITOR.
[2018-12-06 07:21] LABS: CALCIUM, SERUM 9.2 mg/dL (8.5-10.1); CARBON DIOXIDE 26 mmol/L (21-32); CHLORIDE 111 mmol/L (98-107); GLUCOSE 163 mg/dL (74-106); POTASSIUM 3.3 mmol/L (3.5-5.1); SODIUM SERUM 149 mmol/L (136-145); UREA NITROGEN, BLOOD 26 mg/dL (7-18)
[2018-12-06 08:00] VITALS: BP 172/100
[2018-12-06] MEDS: VANCOMYCIN 1 GM in IV D5W 250 ML IV SCH (08:00)
[2018-12-06] MEDS: DIVALPROEX SODIUM 250 MG TABLET.DR PO SCH ×3 (08:29→16:24)
[2018-12-06] MEDS: FAMOTIDINE/PF INJ 20 MG/2 ML VIAL IV SCH ×2 (08:29→20:19)
[2018-12-06] MEDS: DULOXETINE HCL 30 MG CAPSULE.DR PO SCH ×2 (08:29→16:24)
[2018-12-06] MEDS: METOPROLOL TARTRATE 50 MG TABLET PO SCH ×2 (08:29→16:24)
[2018-12-06] MEDS: AMLODIPINE BESYLATE 5 MG TABLET PO SCH (08:30)
[2018-12-06] MEDS: hydrALAZINE HCL 25 MG TABLET PO SCH ×2 (08:30→16:23)
[2018-12-06] MEDS: FINASTERIDE (5 MG) 5 MG TABLET PO SCH (08:30)
[2018-12-06] MEDS: MEROPENEM 1 G in IV NS 0.9% 100 ML IV SCH ×2 (08:31→20:19)
[2018-12-06] MEDS ORDERED: POTASSIUM CHLORIDE 20 MEQ POWDER PACKET GT ONE (09:00)
[2018-12-06] MEDS: IV D5W 1,000 ML IV PRN (11:08)
[2018-12-06] MEDS: GLUCERNA 1.2 1,000 ML BOTTLE NG PRN (18:04)
--- NOTE | 2018-12-06 18:42 | NUR ---
MS RN CLOSING NOTES PATIENT AWAKE AND LYING AT MODERATE HIGH BACKREST POSITION. A/O X1. NON-VERBAL. DNR/DNI STATUS MAINTAINED. ON 02 VIA N/C AT 6LPM, TOLERATING WELL WITH NO SOB NOTED. CONTACT PRECAUTIONS FOR ESBL OF URINE MAINTAINED. SRIDEVI MIDLINE AND PIV ON LAC G #18 BOTH INTACT AND PATENT, IVF OF D5W @80ML/HR INFUSING WELL. NG-TUBE IN PLACE AND PATENT WITH GLUCERNA 1.2 FEEDING IN PROGRESS @ 40ML/HR AT THIS TIME, TOLERATING WELL. ASPIRATION PRECAUTIONS MAINTAINED. FOURNIER IN PLACE AND DRAINING SLIGHTLY CLOUDY YELLOW URINE WIT SEDIMENTS TO URINARY BEDSIDE BAG, FOURNIER CARE DONE. PT TURNED FROM Q 2HRS AND PRN. KEEP CLEAN, DRY AND COMFORTABLE. ALL NEEDS AND CARE PROVIDED WELL. SAFETY MEASURES IN PLACE. BED IN LOW LOCKED POSITION W/ SR UP X2. CALL LIGHT WITHIN REACH. WILL ENDORSE TO HOSPITAL MEDICINE DIRECTOR NURSE FOR REINIER.
--- NOTE | 2018-12-06 19:30 | NUR ---
MS RN OPENING NOTE RECEIVED PATIENT IN BED. A/O X1. PATIENT IS NONVERBAL. PATIENT IS ON OXYGEN AT 6L/MIN VIA NASAL CANNULA. NO SOB NOTED. NO SIGN OF MANIFESTATIONS OF PAIN AT THIS TIME. IV ACCESS SRIDEVI MIDLINE RUNNING D5W@80ML/HR. ANOTHER IV ACCESS IN LAC GAUGE 18 PATENT AND SALINE LOCKED. FOURNIER IS PRESENT. DRAINING TO GRAVITY, URINE IS YELLOW AND CLOUDY. NG-TUBE IS PRESENT, PLACEMENT IS CHECKED AND FEEDING OF GLUCERNA 1.2 @40ML/HR CONTINUED. BED IS LOW AND LOCKED. CALL LIGHT WITHIN REACH. WILL CONTINUE TO MONITOR.
[2018-12-06 20:00] VITALS: BP 157/95
[2018-12-06] MEDS: ENOXAPARIN SODIUM 30 MG/0.3 ML DISP.SYRIN SQ SCH (21:07)
[2018-12-06] MEDS ORDERED: VANCOMYCIN 0.75 GM in IV D5W 250 ML IV SCH (22:00)
--- NOTE | 2018-12-07 05:40 | NUR ---
MS RN NOTE 2546 ACCUCHECK READ 146 BLOOD SUGAR. NO INSULIN COVERAGE GIVEN DUE TO STOPPED NG-TUBE FEEDING.
[2018-12-07] MEDS: IV D5W 1,000 ML IV PRN (05:47)
--- NOTE | 2018-12-07 05:54 | NUR ---
RN NOTES PT. IS CONGESTED.. GOT AN ORDER FROM DR. EDDY TO STOPPED THE FEEDING FOR NOW AND CHEST XRAY AM,, ORDER NOTED AND CARRIED OUT
[2018-12-07] MEDS: BLOOD SUGAR DIAGNOSTIC 1 EACH STRIP IN SCH ×4 (06:06→23:58)
[2018-12-07 06:29] LABS: BASOPHILS % (AUTO) 0.2 % (0.0-2.0); EOSINOPHILS % (AUTO) 0.3 % (0.0-6.0); HEMATOCRIT 33 % (39-51); LYMPHOCYTES # (AUTO) 2.2 /CMM (0.8-4.8); LYMPHOCYTES % (AUTO) 13.4 % (20.0-44.0); MEAN CORPUSCULAR HGB CONC 33 g/dl (31.0-36.0); MEAN CORPUSCULAR VOLUME 90 fL (80-96); MONOCYTES # (AUTO) 1.5 /CMM (0.1-1.30); MONOCYTES % (AUTO) 9.3 % (2.0-12.0); NEUTROPHILS # (AUTO) 12.4 /CMM (1.8-8.9); NEUTROPHILS % (AUTO) 76.8 % (43.0-81.0); PLATELET COUNT (AUTO) 467 /CMM (150-450); RED BLOOD CELL COUNT(AUTO) 3.72 MIL/uL (4.5-6.0); WHITE BLOOD COUNT (AUTO) 16.1 K/uL (4.3-11.0)
--- NOTE | 2018-12-07 06:35 | NUR ---
MS RN CLOSING NOTE PATIENT IS RESTING IN BED. A/O X1, NONVERBAL. PATIENT IS ON 6L/MIN OF OXYGEN VIA NASAL CANNULA WITH O2 SAT OF 96%. RESPIRATIONS ARE EVEN AND UNLABORED. PATIENT SOUNDS CONGESTED. REPOSITIONING, SUCTION WELL HOLDING IVF AND NG-TUBE FEEDING. IV ACCESS IN LAC GAUGE 18 PATENT AND SALINE LOCKED. IV ACCES IN SRIDEVI MIDLINE WITH FLUIDS D5W@80ML/HR, CURRENTLY NOT RUNNING. NG-TUBE PRESENT, PLACEMENT CHECKED, WITH FEEDING OF GLUCERNA 1.2 @40ML/HR, CURRENTLY NOT RUNNING. PER DOCTORS ORDER FEEDING IS ON HOLD. NO SIGNS OF MANIFESTATION OF PAIN NOTED THROUGHOUT SHIFT. FOURNIER CATHETER PRESENT AND DRAINING TO GRAVITY. URINE IS YELLOW AND CLOUDY, OUTPUT IS 400.SKIN WAS KEPT CLEAN AND DRY. PATIENT WAS OFFLOADED AND TURNED Q2HRS. BED IS LOW AND LOCKED. HOB MAINTAINED ELEVATED, SIDE RAILS UP X2. ALL NURSING NEEDS MET. CALL LIGHT WITHIN REACH. WILL ENDORSE TO DAY SHIFT FOR REINIER.
--- NOTE | 2018-12-07 07:31 | NUR ---
MS RN OPENING NOTES RECEIVED PATIENT RESTING IN BED COMFORTABLY IN MODERATE HIGH BACK REST. A/O X1, NONVERBAL. PATIENT IS ON 6L/MIN OF OXYGEN VIA NASAL CANNULA. RESPIRATIONS ARE EVEN AND UNLABORED. IV ACCESS ON SRIDEVI MIDLINE AND LAC #18, SL. PATENT AND INTACT, IV FLUIDS WAS DISCONTINUED DUE TO CONGESTION. NG-TUBE PRESENT, PLACEMENT CHECKED, WITH FEEDING OF GLUCERNA 1.2 @40ML/HR. PER DOCTORS ORDER FEEDING IS ON HOLD. FOURNIER CATHETER PRESENT AND DRAINING TO GRAVITY. URINE IS YELLOW. SAFETY MEASURES IN PLACED, BED IN LOW LOCKED POSITION, SIDE RAILS UP X 2. HOB MAINTAINED ELEVATED. CALL LIGHT WITHIN REACH. WILL CONTINUE TO MONITOR.
--- NOTE | 2018-12-07 07:36 | NUR ---
RN NOTES SPOKE TO DR. SPEAR ABOUT PT. IS HAVING CONGESTION. GOT AN ORDER TO STOP THE IV FLUID, ORDER NOTED AND CARRIED OUT
[2018-12-07 08:00] VITALS: BP 157/81
[2018-12-07] MEDS: AMLODIPINE BESYLATE 5 MG TABLET PO SCH (08:43)
[2018-12-07] MEDS: DULOXETINE HCL 30 MG CAPSULE.DR PO SCH ×2 (08:43→16:21)
[2018-12-07] MEDS: FINASTERIDE (5 MG) 5 MG TABLET PO SCH (08:43)
[2018-12-07] MEDS: DIVALPROEX SODIUM 250 MG TABLET.DR PO SCH ×3 (08:43→16:21)
[2018-12-07] MEDS: FAMOTIDINE/PF INJ 20 MG/2 ML VIAL IV SCH ×2 (08:43→20:49)
[2018-12-07] MEDS: METOPROLOL TARTRATE 50 MG TABLET PO SCH ×2 (08:44→16:21)
[2018-12-07] MEDS: hydrALAZINE HCL 25 MG TABLET PO SCH ×2 (08:44→16:22)
[2018-12-07] MEDS: MEROPENEM 1 G in IV NS 0.9% 100 ML IV SCH ×2 (08:50→20:45)
[2018-12-07 09:06] LABS: CALCIUM, SERUM 9.3 mg/dL (8.5-10.1); CARBON DIOXIDE 23 mmol/L (21-32); CHLORIDE 111 mmol/L (98-107); CREATININE 2.4 mg/dL (0.6-1.3); GLUCOSE 151 mg/dL (74-106); POTASSIUM 3.7 mmol/L (3.5-5.1); SODIUM SERUM 149 mmol/L (136-145); UREA NITROGEN, BLOOD 30 mg/dL (7-18)
[2018-12-07] MEDS ORDERED: POTASSIUM CHLORIDE 20 MEQ TAB.PRT.SR PO SCH (10:00)
[2018-12-07] MEDS: INSULIN REGULAR, HUMAN 100 UNIT/ML 3 ML VIAL SQ PRN ×2 (11:33→17:06)
[2018-12-07 16:00] VITALS: BP 154/87
[2018-12-07] MEDS: GLUCERNA 1.2 1,000 ML BOTTLE NG PRN (16:01)
--- NOTE | 2018-12-07 18:53 | NUR ---
MS RN CLOSING NOTES PATIENT RESTING IN BED COMFORTABLY IN MODERATE HIGH BACK REST. A/O X1, NONVERBAL. ON OXYGEN 6L/MIN OF OXYGEN VIA NASAL CANNULA. RESPIRATIONS ARE EVEN AND UNLABORED. IV ACCESS ON SRIDEVI MIDLINE AND LAC #18, SL. PATENT AND INTACT. NG-TUBE PRESENT, PLACEMENT CHECKED, WITH FEEDING OF GLUCERNA 1.2 @40ML/HR. FOURNIER CATHETER PRESENT AND DRAINING TO GRAVITY. URINE IS YELLOW AND CLOUDY WITH 350 CC OUTPUT. SAFETY MEASURES IN PLACED, BED IN LOW LOCKED POSITION, SIDE RAILS UP X 2. HOB MAINTAINED ELEVATED. CALL LIGHT WITHIN REACH. WILL ENDORSED TO PROJECT MANAGER NURSE FOR REINIER.
--- NOTE | 2018-12-07 19:34 | NUR ---
RN OPENING NOTES RECEIVED PATIENT IN BED. PATIENT IS A/O X 1. PATIENT IS NONVERBAL. PATIENT IS ON O2 AT 6L/MIN VIA NASAL CANNULA. NO SIGNS OF RESPIRATORY DISTRESS NOTED. NO SOB NOTED. NO SIGNS OF FACIAL GRIMACING OR DISCOMFORT INDICATING PAIN AT THIS TIME. IV ACCESS SRIDEVI INTACT AND PATENT. LAC G#18 PATENT AND INTACT, SL. FOURNIER CATH PRESENT, DRAINING WELL TO GRAVITY. NG-TUBE PRESENT. GLUCERNA 1.2, RUNNING AT THIS TIME. SAFETY PRECAUTIONS IMPLEMENTED; CALL LIGHT WITHIN REACH, BED LOWEST POSITION, BED LOCKED, SIDE RAILS UP X2. WILL CONTINUE TO MONITOR.
[2018-12-07 20:00] VITALS: BP 176/86
[2018-12-07] MEDS: hydrALAZINE HCL IV 20 MG VIAL IV PRN (20:16)
[2018-12-07] MEDS: ENOXAPARIN SODIUM 30 MG/0.3 ML DISP.SYRIN SQ SCH (21:59)
[2018-12-07 22:49] VITALS: BP 157/77
[2018-12-08] MEDS: BLOOD SUGAR DIAGNOSTIC 1 EACH STRIP IN SCH ×3 (06:11→18:10)
[2018-12-08 06:22] LABS: BASOPHILS % (AUTO) 0.3 % (0.0-2.0); EOSINOPHILS % (AUTO) 0.2 % (0.0-6.0); HEMATOCRIT 34 % (39-51); HEMOGLOBIN 11.1 g/dL (13.5-17.5); LYMPHOCYTES % (AUTO) 12.3 % (20.0-44.0); MEAN CORPUSCULAR HGB CONC 33 g/dl (31.0-36.0); MEAN CORPUSCULAR VOLUME 90 fL (80-96); MONOCYTES # (AUTO) 1.2 /CMM (0.1-1.30); MONOCYTES % (AUTO) 7.5 % (2.0-12.0); NEUTROPHILS % (AUTO) 79.7 % (43.0-81.0); PLATELET COUNT (AUTO) 459 /CMM (150-450); RED BLOOD CELL COUNT(AUTO) 3.77 MIL/uL (4.5-6.0); WHITE BLOOD COUNT (AUTO) 16.4 K/uL (4.3-11.0)
[2018-12-08] MEDS: INSULIN REGULAR, HUMAN 100 UNIT/ML 3 ML VIAL SQ PRN ×4 (06:32→18:22)
[2018-12-08 06:51] LABS: CALCIUM, SERUM 9.4 mg/dL (8.5-10.1); CARBON DIOXIDE 24 mmol/L (21-32); CHLORIDE 112 mmol/L (98-107); CREATININE 2.7 mg/dL (0.6-1.3); GLUCOSE 219 mg/dL (74-106); MAGNESIUM 1.7 mg/dL (1.8-2.4); POTASSIUM 3.6 mmol/L (3.5-5.1); SODIUM SERUM 148 mmol/L (136-145); UREA NITROGEN, BLOOD 36 mg/dL (7-18)
--- NOTE | 2018-12-08 07:05 | NUR ---
RN CLOSING NOTES PATIENT IS RESTING IN BED, COMFORTABLY. PATIENT IS A/O X1, NONVERBAL. PATIENT IS ON 6L/MIN O2 VIA NASAL CANNULA, WITH SATURATION OF 95%. RESPIRATIONS EVEN AND UNLABORED. IV ACCESS ON LAC #18 PATENT, INTACT, SALINE LOCKED. IV ACCESS SRIDEVI MIDLINE, PATENT, INTACT, SALINE LOCKED. NG TUBE TUBE PRESENT, PLACEMENT CHECKED, GLUCERNA FEEDING. FOURNIER CATHETER PRESENT AND DRAINING WELL, URINE IS YELLOW AND CLOUDY. PATIENT KEPT CLEAN, DRY AND COMFORTABLE. PATIENT TURNED EVERY 2 HOURS. SAFETY PRECAUTIONS IMPLEMENTED; CALL LIGHT WITHIN REACH, BED LOCKED, SIDE RAILS UP X2, BED LOWEST POSITION. HOB MAINTAINED ELEVATED. WILL ENDORSE TO DAY RN FOR CONTINUITY OF CARE AT BED SIDE.
--- NOTE | 2018-12-08 07:40 | NUR ---
MS RN OPENING NOTES RECEIVED PT LAYING IN BED WITH HOB ELEVATED. PT IS ALERT TO NAME, BUT NONVERBAL AND ABLE TO OPEN EYES. RESPIRATIONS ARE EVEN AND UNLABORED, NOT IN ANY ACUTE DISTRESS NOTED. IV SITE TO LAC INTACT, MIDLINE TO SRIDEVI INTACT, DRESSING KEPT CLEAN AND DRY. FOURNIER CATH FREE ON KINKS, DRAINING LITTLE YELLOW URINE. WILL CONTINUE TO MONITOR. SAFETY MEASURES ARE IN PLACE. NGT FEEDING ON AT 40ML/HR, NO RESIDUAL NOTED. CALL LIGHT IS LEFT WITHIN REACH. WILL MONITOR THROUGHOUT SHIFT FOR CONTINUITY OF CARE.
[2018-12-08 08:00] VITALS: BP 121/73
[2018-12-08] MEDS: FAMOTIDINE/PF INJ 20 MG/2 ML VIAL IV SCH ×2 (08:54→21:19)
[2018-12-08] MEDS: DULOXETINE HCL 30 MG CAPSULE.DR PO SCH ×2 (08:54→16:40)
[2018-12-08] MEDS: MEROPENEM 1 G in IV NS 0.9% 100 ML IV SCH ×2 (08:54→21:19)
[2018-12-08] MEDS: FINASTERIDE (5 MG) 5 MG TABLET PO SCH (08:54)
[2018-12-08] MEDS: DIVALPROEX SODIUM 250 MG TABLET.DR PO SCH ×3 (08:55→16:40)
[2018-12-08] MEDS: AMLODIPINE BESYLATE 5 MG TABLET PO SCH (08:55)
[2018-12-08] MEDS: METOPROLOL TARTRATE 50 MG TABLET PO SCH ×2 (08:55→16:41)
[2018-12-08] MEDS: hydrALAZINE HCL 25 MG TABLET PO SCH ×2 (08:56→16:41)
[2018-12-08 09:27] LABS: BAND % (MANUAL) 1 % (0.0-5.0); LYMPHOCYTES % (MANUAL) 15 % (16-48); MONOCYTES % (MANUAL) 5 % (0-11.0); MYELOCYTES % 1 % (0-0); NEUTROPHILS % (MANUAL) 78 (42-76)
[2018-12-08 12:38] LABS: ABG BASE EXCESS 0.9 mmol/L; ABG OXYGEN SATURATION 97.7 % (92.0-98.5); ABG PH 7.444 (7.350-7.450); ABG PO2 117.3 mmHg (75.0-100.0); AaDO2 161.5 mmHg; COHb 0.3 % (0.5-1.5); MetHb 0.6 % (0.0-1.5); O2Hb 96.8 % (94.0-97.0); SITE, ABG Left Radial; VENT MODE, BG nasal cannula
--- NOTE | 2018-12-08 12:50 | NUR ---
PT. DECREASED FROM 6 LPM O2 FLOW TO 5 LPM O2 FLOW VIA NASAL CANNULA WITH HUMIDIFIER DUE TO SPO2 100% AND PAO2 117 mmHg. Addendum: 12/08/18 at 1252 by CHARISSE SAHU RT Amended: Links added.
[2018-12-08 13:44] LABS: CREATININE, URINE 50.3 MG/DL (30.0-125.0); URINE TOTAL PROTEIN 110.7 mg/dL (0-11.9)
[2018-12-08 14:07] LABS: APPEARANCE,URINE CLOUDY (CLEAR); BILIRUBIN,URINE NEGATIVE (NEGATIVE); BLOOD, URINE 1+ Ery/uL (NEGATIVE); COLOR,URINE YELLOW (YELLOW); KETONES,URINE NEGATIVE (NEGATIVE); LEUKOCYTE ESTERASE ,URINE 3+ (NEGATIVE); NITRITE, URINE NEGATIVE (NEGATIVE); PROTEIN,URINE 2+ mg/dl (NEGATIVE); UGLUCOSE NEGATIVE (NEGATIVE); UROBILINOGEN,URINE 0.2 EU/dL (0.2)
[2018-12-08] MEDS ORDERED: LIDOCAINE VISCOUS 2% UD 15 ML UDC MM STA (14:17)
[2018-12-08 14:24] LABS: BACTERIA,URINE Few /HPF (None Seen); SQUAMOUS EPITHELIAL CELL,UR Few /HPF (None Seen); WBC,URINE TOO NUMEROUS TO COUN /HPF (0-3)
[2018-12-08] MEDS ORDERED: LIDOCAINE 2% JEL UROJET 10 ML MM ONE (14:30)
--- NOTE | 2018-12-08 15:15 | NUR ---
MS RN NOTES-- PT WAS SEEN AND EXAMINED BY DR. GOLDSTEIN. DR. GOLDSTEIN REVIEWED US KIDNEY RESULTS W/ ORDERS FOR VISCOUS LIDOCANE JELLY AND ADVANCE OF FOURNIER CATH. ORDERS READ BACK AND VERIFIED. DR. GOLDSTEIN AT BEDSIDE, ADMINISTERED VISCOUS LIDOCAINE AND ADVANCED FOURNIER CATH WITH URINE OUTPUT OF 750CC. WILL CONTINUE TO MONITOR.
[2018-12-08 15:39] LABS: EOSINOPHIL,URINE Few
[2018-12-08 16:00] VITALS: BP 118/70
[2018-12-08] MEDS: GLUCERNA 1.2 1,000 ML BOTTLE NG PRN (18:09)
--- NOTE | 2018-12-08 18:32 | NUR ---
MS RN CLOSING NOTES ALL DUE MEDS GIVEN, NEEDS MET AND RENDERED. PT IS ALERT TO NAME, AFEBRILE. RESPIRATIONS ARE EVEN AND UNLABORED, NOT IN ANY ACUTE DISTRESS NOTED. NO FACIAL GRIMACING OR MOANING NOTED. MIDLINE TO RAFFI INTACT, NO INFILTRATION NOTED. DRESSING KEPT CLEAN AND DRY. SAFETY MEASURES ARE IN PLACE. NGT INTACT, TOLERATING TUBE FEEDING RATE AT 60ML/HR, NO RESIDUAL NOTED. CALL LIGHT IS LEFT WITHIN REACH. REPOSITIONED Q2H. WILL ENDORSE TO NEXT SHIFT FOR CONTINUITY OF CARE. Addendum: 12/08/18 at 1833 by INESSA TERAN RN CORRECTION: SRIDEVI MIDLINE.
--- NOTE | 2018-12-08 19:30 | NUR ---
RN OPEN NOTES RECEIVED PATIENT RESTING IN BED, EASILY AROUSABLE . A/OX1. NO SIGNS OF DISTRESS OR DISCOMFORT. BREATHING EVEN AND UNLABORED. ON 5LPM NC WITH HUMIDIFIER. IV ACCESS IN LAC AND SRIDEVI MIDLINE, PATENT AND INTACT, NO SIGNS OF REDNESS OR INFILTRATION. HAS NGT INTACT WITH FEEDING RUNNING, PT TOLERATING WELL WITH NO RESIDUAL NOTED AT THIS TIME. HAS F/C INTACT DRAINING CLOUDY YELLOW FLUID WITH PINKISH SEDIMENT TO GRAVITY. HOB ELEVATED. BED IN LOW LOCKED POSITION WITH SIDE RAILS X3. CALL LIGHT WITHIN REACH. WILL CONTINUE TO MONITOR.
[2018-12-08 20:00] VITALS: BP 133/77
[2018-12-08] MEDS: ENOXAPARIN SODIUM 30 MG/0.3 ML DISP.SYRIN SQ SCH (21:20)
[2018-12-09] MEDS: BLOOD SUGAR DIAGNOSTIC 1 EACH STRIP IN SCH ×3 (00:57→11:59)
[2018-12-09] MEDS: INSULIN REGULAR, HUMAN 100 UNIT/ML 3 ML VIAL SQ PRN ×3 (00:59→12:09)
--- NOTE | 2018-12-09 06:00 | NUR ---
RN NOTES INCREASED TUBE FEEDING TO 70ML/HR ORDERED, PATIENT TOLERATING WELL NO RESIDUAL NOTED. WILL CONTINUE TO MONITOR.
--- NOTE | 2018-12-09 07:06 | NUR ---
RN CLOSING NOTES PATIENT RESTING IN BED, EASILY AROUSABLE . A/OX1. NO SIGNS OF DISTRESS OR DISCOMFORT. BREATHING EVEN AND UNLABORED. ON 5LPM NC WITH HUMIDIFIER. IV ACCESS IN LAC AND SRIDEVI MIDLINE, PATENT AND INTACT, NO SIGNS OF REDNESS OR INFILTRATION. HAS NGT INTACT WITH FEEDING RUNNING, PT TOLERATING WELL WITH NO RESIDUAL NOTED THROUGHOUT SHIFT. HAS F/C INTACT DRAINING CLOUDY YELLOW FLUID WITH PINKISH SEDIMENT TO GRAVITY. HOB ELEVATED. ALL NEEDS MET. NO SIGNIFICANT CHANGES THROUGH THE NIGHT. PATIENT REPOSITIONED Q2H AND PRN. BED IN LOW LOCKED POSITION WITH SIDE RAILS X3. CALL LIGHT WITHIN REACH. ENDORSED TO AM SHIFT FOR REINIER.
--- NOTE | 2018-12-09 07:34 | NUR ---
RN MS OPENING NOTES Patient received on 5L nasal cannula with humidifier, no sob noted, no s/s of pain at this time. Patient remains a/o x1. Bone remains patent and is draining, LAC #18 and SRIDEVI Mid line remains patient at this time. Bed at the lowest setting, call light within reach, side rails up x2.
[2018-12-09 08:00] VITALS: BP 131/69
[2018-12-09 08:01] LABS: BASOPHILS # (AUTO) 0.1 /CMM (0.0-0.2); BASOPHILS % (AUTO) 0.4 % (0.0-2.0); EOSINOPHILS % (AUTO) 0.7 % (0.0-6.0); HEMATOCRIT 30 % (39-51); HEMOGLOBIN 9.8 g/dL (13.5-17.5); LYMPHOCYTES # (AUTO) 2.4 /CMM (0.8-4.8); LYMPHOCYTES % (AUTO) 21.1 % (20.0-44.0); MEAN CORPUSCULAR HGB CONC 33 g/dl (31.0-36.0); MEAN CORPUSCULAR VOLUME 89 fL (80-96); MONOCYTES # (AUTO) 0.8 /CMM (0.1-1.30); MONOCYTES % (AUTO) 7.3 % (2.0-12.0); NEUTROPHILS # (AUTO) 8.1 /CMM (1.8-8.9); NEUTROPHILS % (AUTO) 70.5 % (43.0-81.0); PLATELET COUNT (AUTO) 403 /CMM (150-450); RED BLOOD CELL COUNT(AUTO) 3.31 MIL/uL (4.5-6.0); WHITE BLOOD COUNT (AUTO) 11.4 K/uL (4.3-11.0)
[2018-12-09 08:21] LABS: ALANINE AMINOTRANSFERASE 9 U/L (12-78); ALBUMIN 1.9 g/dL (3.4-5.0); ALKALINE PHOSPHATASE 64 U/L (46-116); ASPARTATE AMINOTRANSFERASE 7 U/L (15-37); BILIRUBIN,TOTAL 0.2 mg/dL (0.2-1.0); CALCIUM, SERUM 9.2 mg/dL (8.5-10.1); CARBON DIOXIDE 32 mmol/L (21-32); CHLORIDE 112 mmol/L (98-107); CREATININE 1.9 mg/dL (0.6-1.3); GLUCOSE 199 mg/dL (74-106); MAGNESIUM 1.6 mg/dL (1.8-2.4); PHOSPHORUS 4.1 mg/dL (2.5-4.9); POTASSIUM 3.7 mmol/L (3.5-5.1); SODIUM SERUM 150 mmol/L (136-145); TOTAL PROTEIN, SERUM 6.4 g/dL (6.4-8.2); UREA NITROGEN, BLOOD 38 mg/dL (7-18)
[2018-12-09] MEDS: FINASTERIDE (5 MG) 5 MG TABLET PO SCH (08:34)
[2018-12-09] MEDS: METOPROLOL TARTRATE 50 MG TABLET PO SCH (08:34)
[2018-12-09] MEDS: DULOXETINE HCL 30 MG CAPSULE.DR PO SCH (08:34)
[2018-12-09] MEDS: DIVALPROEX SODIUM 250 MG TABLET.DR PO SCH ×2 (08:34→12:55)
[2018-12-09] MEDS: AMLODIPINE BESYLATE 5 MG TABLET PO SCH (08:34)
[2018-12-09 08:35] VITALS: BP 131/69
[2018-12-09] MEDS: hydrALAZINE HCL 25 MG TABLET PO SCH (08:35)
[2018-12-09] MEDS: FAMOTIDINE/PF INJ 20 MG/2 ML VIAL IV SCH (08:35)
[2018-12-09 08:36] LABS: CREATINE KINASE, TOTAL < 7 U/L (39-308)
[2018-12-09] MEDS: MEROPENEM 1 G in IV NS 0.9% 100 ML IV SCH (08:45)
[2018-12-09] MEDS ORDERED: Magnesium 1GM/D5W 100ML PREMIX 100 ML IV SCH (11:14)
--- NOTE | 2018-12-09 16:10 | NUR ---
PLUG GROWER NOTES Patient discharged around this time, no sob noted, vital signs stable, no s/s of pain. Patient's midline removed, osorio in place for comfort, charge nurse aware. Patient's paperwork signed by 2 RN due to patient unable to sign for self. Patient family member notified of the transfer to another facility. Patient transported with ambulance.
== END 2018-12-09 16:01 | disposition home or self-care (01) | DRG 177 ==
LOC: ER 23:52 → ICU 12-01 02:02 → MED 12-03 23:34 → TELE 12-04 00:01 → MED 12-04 09:06
PROVIDERS: ADMIT Student in an Organized Health Care Education/Training Program; ATTEND Nurse Practitioner Acute Care
PROC: 5A09357 Assistance with Respiratory Ventilation, Less than 24 Consecutive Hours, Continuous Positive Airway Pressure (ICD-10-PCS; principal; 2018-12-01)
PROC: 05HC33Z Insertion of Infusion Device into Left Basilic Vein, Percutaneous Approach (ICD-10-PCS; 2018-12-01)
DX: J69.0 Pneumonitis due to inhalation of food and vomit (principal); G92 Toxic encephalopathy; N17.0 Acute kidney failure with tubular necrosis; J96.01 Acute respiratory failure with hypoxia; E43 Unspecified severe protein-calorie malnutrition; D68.59 Other primary thrombophilia; E87.0 Hyperosmolality and hypernatremia; N39.0 Urinary tract infection, site not specified; N13.8 Other obstructive and reflux uropathy; I69.354 Hemiplegia and hemiparesis following cerebral infarction affecting left non-dominant side; J15.6 Pneumonia due to other Gram-negative bacteria; J15.9 Unspecified bacterial pneumonia; D64.9 Anemia, unspecified; E11.9 Type 2 diabetes mellitus without complications; F03.90 Unspecified dementia, unspecified severity, without behavioral disturbance, psychotic disturbance, mood disturbance, and anxiety; I10 Essential (primary) hypertension; E78.5 Hyperlipidemia, unspecified; E87.6 Hypokalemia; Z79.4 Long term (current) use of insulin; Z79.899 Other long term (current) drug therapy; R13.10 Dysphagia, unspecified; N40.1 Benign prostatic hyperplasia with lower urinary tract symptoms; G89.29 Other chronic pain; F29 Unspecified psychosis not due to a substance or known physiological condition; Z74.09 Other reduced mobility; Z22.322 Carrier or suspected carrier of Methicillin resistant Staphylococcus aureus; I70.0 Atherosclerosis of aorta; Y95 Nosocomial condition; Z51.5 Encounter for palliative care; Z66 Do not resuscitate
CPT/HCPCS: 31720; 36415; 36569; 36600; 71045-TC; 76770-TC; 80048-TC; 80053-TC; 80076-TC; 80202-TC; 81000-TC; 82550-TC; 82570-TC; 82803-TC; 82962-TC; 83605-TC; 83735-TC; 84100-TC; 84155-TC; 84300-TC; 84439-TC; 84484-TC; 85025-TC; 85730-TC; 87040-TC; 87081-TC; 87086-TC; 87186-TC; 92526; 92611-TC; 93307-TC; 94799-TC; 99082-TC; A4216; A4217; C9113; G0378; J0360; J1200; J1650; J1815; J2185; J2543; J3370; J3475; J3490; J7030; J7050; J7060; J7070